=== PATIENT | female | born 1995 | race American Indian/Alaskan Native ===

== ENCOUNTER 2019-01-06 10:34 | Inpatient (IN) | payer MEDICAID ==
[2019-01-06] MEDS ORDERED: BENADRYL IV ONE (10:51)
[2019-01-06] MEDS ORDERED: TORADOL IV ONE (10:51)
[2019-01-06] MEDS ORDERED: SUBLIMAZE IV ONE ×3 (10:51→15:08)
[2019-01-06] MEDS ORDERED: ZOFRAN IV ONE (10:51)
[2019-01-06] MEDS ORDERED: D5NS 0.2% 1,000 ML IV ONE (10:52)
--- NOTE | 2019-01-06 10:58 | Emergency Department Report ---
HPI - General Chief Complaint: Sickle Cell Crisis Time Seen by Provider: 01/06/19 10:47 - HPI HPI: Room 6 The patient is a 23-year-old female presenting with a chief complaint of sickle cell pain crisis. Patient states this morning she developed pain in bilateral knees consistent with her sickle cell pain crises. Patient denies any preceding trauma. Patient gives her pain a score of 10/10 11:17 Patient states she was also feeling short of breath "from the pain" in her knees. Patient denies chest pain but admits to a cough productive of light y ellow sputum for the past 3 days. Will obtain a VQ scan Location: Bilateral knees Duration: Onset this morning Quality: Feels like sickle cell pain crisis Severity:10/10 Modifying factors: [see above] Context: [see above] Mode of transportation: [not driving] ED Past Medical Hx - Past Medical History Previous Medical History?: Yes Hx Sickle Cell Disease: Yes Hx Asthma: Yes Additional medical history: Blood transfuSions - Surgical History Past Surgical History?: Yes Hx Cholecystectomy: Yes Additional Surgical History: Adenoidectomy - Family History Family history: no significant - Social History Smoking Status: Never Smoker Substance Use Type: Marijuana - Medications Home Medications: Home Medications Medication Instructions Recorded Confirmed Last Taken Type Albuterol (Nf) 90 mcg 01/22/15 01/22/15 Unknown History ALBUTEROL Inhaler (OR & NICU) 2 puff IH QID PRN #1 inhalation 08/07/18 Unknown Rx [ProAir HFA Inhaler] ALBUTEROL NEB's [Proventil 0.083% 2.5 mg IH Q4HRT PRN nebu 08/07/18 Unknown Rx NEBS] Benzonatate [Tessalon Perles] 100 mg PO Q8HR #20 capsule 08/07/18 Unknown Rx Ddavp 0.1 mg PO HS #30 08/07/18 Unknown Rx ED Review of Systems ROS: Stated complaint: SICKLE CELL CRISIS Other details as noted in HPI Constitutional: no symptoms reported Eyes: denies: eye pain ENT: denies: throat pain Respiratory: no symptoms reported Cardiovascular: denies: chest pain Endocrine: no symptoms reported Gastrointestinal: denies: abdominal pain Genitourinary: denies: dysuria Musculoskeletal: arthralgia Neurological: denies: headache Physical Exam - Physical Exam Vital Signs: Vital Signs 01/06/19 10:40 Temperature 98.3 F Pulse Rate 64 Respiratory 16 Rate Blood Pressure 118/37 [Right] O2 Sat by Pulse 100 Oximetry Physical Exam: GENERAL: The patient is well-developed well-nourished female holding bilateral knees, tearful appearing to be in moderate discomfort. [] HEENT: Normocephalic. Atraumatic. Extraocular motions are intact. Patient has moist mucous membranes. NECK: Supple. Trachea midline CHEST/LUNGS: There is no respiratory distress noted. HEART/CARDIOVASCULAR: Regular. There is no tachycardia. 2+ bilateral DPs ABDOMEN: There is no abdominal distention. SKIN: There is no rash. There is no edema. There is no diaphoresis. NEURO: The patient is awake, alert, and oriented. The patient is cooperative. The patient has normal speech MUSCULOSKELETAL: There is no calf tenderness. There is no increased warmth of the knees. There is no evidence of acute injury. ED Course Vital Signs 01/06/19 10:40 Temperature 98.3 F Pulse Rate 64 Respiratory 16 Rate Blood Pressure 118/37 [Right] O2 Sat by Pulse 100 Oximetry ED Medical Decision Making - Lab Data Result diagrams: 01/06/19 10:49 01/06/19 10:49 Laboratory Tests 01/06/19 01/06/19 01/06/19 10:49 10:49 10:49 WBC 13.9 H RBC 3.20 L Hgb 11.0 Hct 30.3 MCV 95 MCH 35 H MCHC 36 H RDW 19.9 H Plt Count 422 Lymph % (Auto) 9.3 L [place] % (Auto) 6.7 Eos % (Auto) 0.1 Baso % (Auto) 1.7 Lymph # 1.3 [place] # 0.9 H Eos # 0.0 Baso # 0.2 H Seg Neutrophils % 82.2 H Seg Neutrophils # 11.4 H Percent Retic 13.77 H Sodium 138 Potassium 4.3 Chloride 103.4 Carbon Dioxide 19 L Anion Gap 20 BUN 8 Creatinine 0.2 L Estimated GFR > 60 BUN/Creatinine Ratio 40 Glucose 125 H Calcium 9.5 HCG, Qual Negative Urine Color Urine Turbidity Urine pH Ur Specific [place] Urine Protein Urine Glucose (UA) Urine Ketones Urine Blood Urine Nitrite Urine Bilirubin Urine Urobilinogen Ur Leukocyte Esterase Urine WBC (Auto) Urine RBC (Auto) 01/06/19 12:05 WBC RBC Hgb Hct MCV MCH MCHC RDW Plt Count Lymph % (Auto) [place] % (Auto) Eos % (Auto) Baso % (Auto) Lymph # [place] # Eos # Baso # Seg Neutrophils % Seg Neutrophils # Percent Retic Sodium Potassium Chloride Carbon Dioxide Anion Gap BUN Creatinine Estimated GFR BUN/Creatinine Ratio Glucose Calcium HCG, Qual Urine Color Yellow Urine Turbidity Clear Urine pH 7.0 Ur Specific [place] 1.008 Urine Protein <15 mg/dl Urine Glucose (UA) 50 Urine Ketones Neg Urine Blood Neg Urine Nitrite Neg Urine Bilirubin Neg Urine Urobilinogen 4.0 Ur Leukocyte Esterase Neg Urine WBC (Auto) < 1.0 Urine RBC (Auto) 1.0 - Radiology Data Radiology results: report reviewed (chest x-ray, VQ scan), image reviewed (chest x-ray, VQ scan) interpreted by me: Chest x-ray-left lower lobe infiltrate [facility] [address] [place] [address] XRay Report Signed Patient: MADDY PADGETT MR# : [id number] : 1995 Acct:[id number] Age/Sex: 23 / F ADM Date: 01/06/19 Loc: ED Attending Dr: Ordering Physician: JIN MONTOYA MD Date of Service: 01/06/19 Procedure(s): XR chest 1V ap Accession Number(s): [id number] cc: JIN MONTOYA MD Fluoro Time In Minutes: PROCEDURE: XR CHEST 1V AP HISTORY: shortness of breath FINDINGS: Single frontal view of the chest was acquired and compared to the prior examination of August 07, 2018. In comparison to prior exam dated previously identified left pleural effusion has resolved. There is some linear consolidation at the left lung base which could represent atelectasis, scar, or pneum onia. On the prior exam there is a larger infiltrate in this location. The right lung appears clear. IMPRESSION: Left basilar linear consolidation, atelectasis versus scar versus pneumonia This document is electronically signed by Stevie Delarosa MD., January 06 2019 12:31:00 PM ET Transcribed By: PHANI Dictated By: STEVIE DELAROSA MD Electronically Authenticated By: STEVIE DELAROSA MD Signed Date/Time: 01/06/19 1233 DD/ 1211 TD/TT: 01/06/19 1212 [facility] [address] [place] [address] Nuclear Medicine Report Signed Patient: MADDY PADGETT MR# : [id number] : 1995 Acct:[id number] Age/Sex: 23 / F ADM Date: 01/06/19 Loc: ED Attending Dr: Ordering Physician: JIN MONTOYA MD Date of Service: 01/06/19 Procedure(s): NM lung scan perf/vent Accession Number(s): [id number] cc: JIN MONTOYA MD PROCEDURE: NM LUNG SCAN PERF/VENT TECHNIQUE: 5.4 mCi Tc-99m MAA was injected IV for pulmonary perfusion imaging in multiple projections. 13 mCi Xenon-133 was inhaled for pulmonary ventilation imaging in multiple projections. HISTORY: shortness of breath, history of sickle cell disease COMPARISONS: Chest x-ray January 06, 2019. FINDINGS: Ventilation: Uniform. Perfusion: Unmatched subsegmental perfusion deficits in both upper lobes. IMPRESSION: * Based on the PIOPED study, findings represent low probability for PE. This document is electronically signed by Eriberto Nagel MD., January 06 2019 02:59:50 PM ET Transcribed By: TYM Dictated By: ERIBERTO NAGEL MD Electronically Authenticated By: ERIBERTO NAGEL MD Signed Date/Time: 01/06/19 1501 DD/ 1322 TD/TT: 01/06/19 1324 - Differential Diagnosis sickle cell pain crisis, acute chest syndrome Critical care attestation.: If time is entered above; I have spent that time in minutes in the direct care of this critically ill patient, excluding procedure time. ED Disposition Clinical Impression: Sickle cell pain crisis, Acute chest syndrome Disposition: OP ADMIT IP TO THIS HOSP Is pt being admited?: Yes Does the pt Need Aspirin: Yes Condition: Fair Referrals: PRIMARY CARE, [Referring] - 3-5 Days Time of Disposition: 15:09 (hospitalist paged (Dr Novoa))
[2019-01-06 11:24] LABS: BUN/Creatinine Ratio 40; Blood Urea Nitrogen 8 mg/dL (7-17); Calcium 9.5 mg/dL (8.4-10.2); Hemolysis Index 87
[2019-01-06 11:44] LABS: Basophils # (Auto) 0.2 K/mm3 (0.0-0.1); Basophils % (Auto) 1.7 % (0.0-1.8); Eosinophils % (Auto) 0.1 % (0.0-4.3); Hematocrit 30.3 % (30.3-42.9); Lymphocytes # (Auto) 1.3 K/mm3 (1.2-5.4); Lymphocytes % (Auto) 9.3 % (13.4-35.0); Mean Corpuscular HGB Conc 36 % (30-34); Mean Corpuscular Volume 95 fl (79-97); Monocytes # (Auto) 0.9 K/mm3 (0.0-0.8); Monocytes % (Auto) 6.7 % (0.0-7.3); Platelet Count 422 K/mm3 (140-440); Red Cell Distribution Width 19.9 % (13.2-15.2)
--- NOTE | 2019-01-06 12:33 | XRay Report ---
PROCEDURE: XR CHEST 1V AP HISTORY: shortness of breath FINDINGS: Single frontal view of the chest was acquired and compared to the prior examination of Martha gibbons 2017. In comparison to prior exam dated previously identified left pleural effusion has resolved. There is some linear consolidation at the left lung base which could represent atelectasis, scar, or pneumonia . On the prior exam there is a larger infiltrate in this location. The right lung appears clear. IMPRESSION: Left basilar linear consolidation, atelectasis versus scar versus pneumonia This document is electronically signed by Stevie Delarosa MD., January 06 2019 12:31:00 PM ET
[2019-01-06 12:46] LABS: Bilirubin,Urine NEG (Negative); Blood,Urine NEG (Negative); Color,Urine Yellow (Yellow); Protein,Urine <15 mg/dL mg/dL (Negative); WBC,Urine < 1.0 /HPF (0.0-6.0)
[2019-01-06] MEDS ORDERED: LEVAQUIN 500MG/100ML 500 MG/100 ML BAG IV ONE (13:03)
--- NOTE | 2019-01-06 15:01 | Nuclear Medicine Report ---
PROCEDURE: NM LUNG SCAN PERF/VENT TECHNIQUE: 5.4 mCi Tc-99m MAA was injected IV for pulmonary perfusion imaging in multiple projection s. 13 mCi Xenon-133 was inhaled for pulmonary ventilation imaging in multiple projections. HISTORY: shortness of breath, history of sickle cell disease COMPARISONS: Chest x-ray January 06, 2019. FINDINGS: Ventilation: Uniform. Perfusion: Unmatched subsegmental perfusion deficits in both upper lobes. IMPRESSION: * Based on the PIOPED study, findings represent low probability for PE. This document is electronically signed by Eriberto Ricketts MD., January 06 2019 02:59:50 PM ET
[2019-01-06] MEDS ORDERED: TYLENOL PO PRN (17:10)
[2019-01-06] MEDS ORDERED: SODIUM CHLORIDE FLUSH SYRINGE 10 ML IV PRN (17:10)
[2019-01-06] MEDS ORDERED: ZOFRAN IV PRN (17:10)
[2019-01-06] MEDS ORDERED: PROAIR IH PRN (17:11)
[2019-01-06] MEDS ORDERED: PROVENTIL IH PRN (17:20)
[2019-01-06] MEDS: TORADOL IV PRN (17:35)
[2019-01-06] MEDS: D5NS 1,000 ML IV SCH (17:37)
[2019-01-06] MEDS ORDERED: ALBUTEROL 90 MCG IH SCH (18:00)
[2019-01-06] MEDS ORDERED: DDAVP PO SCH ×2 (22:00)
[2019-01-06] MEDS: TESSALON PERLES PO SCH (22:31)
[2019-01-06] MEDS: PEPCID IV SCH (22:31)
[2019-01-06] MEDS: PERCOCET 5/325 PO PRN (22:32)
[2019-01-06] MEDS: SODIUM CHLORIDE FLUSH SYRINGE 10 ML IV SCH (22:33)
[2019-01-07] MEDS: D5NS 1,000 ML IV SCH ×3 (02:10→18:04)
[2019-01-07] MEDS: TESSALON PERLES PO SCH ×3 (05:59→21:45)
[2019-01-07] MEDS: TORADOL IV PRN ×2 (06:07→18:06)
--- NOTE | 2019-01-07 07:40 | History and Physical Report ---
History of Present Illness Date of examination: 01/06/19 Date of admission: 01/06/19 15:15 Chief complaint: Pain all over and chest discomfort History of present illness: The patient is a 23-year-old female presenting with a chief complaint of sickle cell pain crisis. Patient states this morning she developed pain in bilateral knees consistent with her sickle cell pain crises. Patient denies any preceding trauma. Patient gives her pain a score of 10/10 Patient states she was also feeling short of breath "from the pain" in her knees. Patient denies chest pain but admits to a cough productive of light yellow sputum for the past 3 days. Past Medical History Previous Medical History?: Yes Hx Sickle Cell Disease: Yes Hx Asthma: Yes Additional medical history: Blood transfuSions Surgical History Past Surgical History?: Yes Hx Cholecystectomy: Yes Additional Surgical History: Adenoidectomy Family History Family history: no significant Social History Smoking Status: Never Smoker Substance Use Type: Marijuana - Medications Home Medications: Home Medications Medication Instructions Recorded Confirmed Last Taken Type Albuterol (Nf) 90 mcg 01/22/15 01/22/15 Unknown History ALBUTEROL Inhaler (OR & NICU) 2 puff IH QID PRN #1 inhalation 08/07/18 Unknown Rx [ProAir HFA Inhaler] ALBUTEROL NEB's [Proventil 0.083% 2.5 mg IH Q4HRT PRN nebu 08/07/18 Unknown Rx NEBS] Benzonatate [Tessalon Perles] 100 mg PO Q8HR #20 capsule 08/07/18 Unknown Rx Ddavp 0.1 mg PO HS #30 08/07/18 Unknown Rx Review of Systems ROS: Stated complaint: SICKLE CELL CRISIS Other details as noted in HPI Constitutional: no symptoms reported Eyes: denies: eye pain ENT: denies: throat pain Respiratory: no symptoms reported Cardiovascular: denies: chest pain Endocrine: no symptoms reported Gastrointestinal: denies: abdominal pain Genitourinary: denies: dysuria Musculoskeletal: arthralgia Neurological: denies: headache Medications and Allergies Allergies Allergy/AdvReac Type Severity Reaction Status Date / Time hydromorphone HCl Allergy Swelling Verified 01/23/15 12:07 [From Dilaudid] morphine Allergy Rash Verified 01/23/15 12:07 Home Medications Medication Instructions Recorded Confirmed Last Taken Type Albuterol (Nf) 90 mcg 01/22/15 01/22/15 Unknown History ALBUTEROL Inhaler (OR & NICU) 2 puff IH QID PRN #1 inhalation 08/07/18 Unknown Rx [ProAir HFA Inhaler] ALBUTEROL NEB's [Proventil 0.083% 2.5 mg IH Q4HRT PRN nebu 08/07/18 Unknown Rx NEBS] Benzonatate [Tessalon Perles] 100 mg PO Q8HR #20 capsule 08/07/18 Unknown Rx Ddavp 0.1 mg PO HS #30 08/07/18 Unknown Rx Active Meds: Active Medications Acetaminophen (Tylenol) 650 mg PO Q4H PRN PRN Reason: Pain MILD(1-3)/Fever >100.5/MARI Albuterol (Proventil) 2.5 mg IH Q4HRT PRN PRN Reason: Shortness Of Breath Benzonatate (Tessalon Perles) 100 mg PO Q8HR [facility] Last Admin: 01/07/19 05:59 Dose: 100 mg Documented by: Desmopressin Acetate (Ddavp) 0.1 mg PO [facility] Last Admin: 01/06/19 22:31 Dose: 0.1 mg Documented by: Famotidine (Pepcid) 20 mg IV BID [facility] Last Admin: 01/06/19 22:31 Dose: 20 mg Documented by: Dextrose/Sodium Chloride (D5ns) 1,000 mls @ 125 mls/hr IV DIRECT [facility] Last Admin: 01/07/19 02:10 Dose: 125 mls/hr Documented by: Ketorolac Tromethamine (Toradol) 30 mg IV Q6H PRN PRN Reason: Pain, Moderate (4-6) Stop: 01/11/19 16:52 Last Admin: 01/07/19 06:07 Dose: 30 mg Documented by: Ondansetron HCl (Zofran) 4 mg IV Q8H PRN PRN Reason: Nausea And Vomiting Oxycodone/Acetaminophen (Percocet 5/325) 1 tab PO Q6H PRN PRN Reason: Pain, Moderate (4-6) Last Admin: 01/06/19 22:32 Dose: 1 tab Documented by: Sodium Chloride (Sodium Chloride Flush Syringe 10 Ml) 10 ml IV BID [facility] Last Admin: 01/06/19 22:33 Dose: 10 ml Documented by: Sodium Chloride (Sodium Chloride Flush Syringe 10 Ml) 10 ml IV PRN PRN PRN Reason: LINE FLUSH Exam - Constitutional Vitals: Temp Pulse Resp BP Pulse Ox 98.1 F 82 18 98/43 92 01/07/19 05:08 01/07/19 05:08 01/07/19 06:37 01/07/19 05:08 01/07/19 05:08 General appearance: Present: mild distress, well-nourished - EENT Eyes: Present: PERRL ENT: hearing intact, clear oral mucosa - Neck Neck: Present: supple, normal ROM - Respiratory Respiratory effort: normal Respiratory: bilateral: CTA - Cardiovascular Heart rate: 80 Rhythm: regular Heart Sounds: Present: S1 & S2. Absent: rub, click - Extremities Extremities: no ischemia, pulses intact, pulses symmetrical, No edema Peripheral Pulses: within normal limits - Abdominal General gastrointestinal: Present: soft, non-tender, non-distended, normal bowel sounds Female genitourinary: Present: normal - Rectal Rectal Exam: deferred - Integumentary Integumentary: Present: clear, warm, dry - Musculoskeletal Musculoskeletal: gait normal, strength equal bilaterally - Psychiatric Psychiatric: appropriate mood/affect, intact judgment & insight - Neurologic Neurologic: CNII-XII intact, moves all extremities - Allied Health Allied health notes reviewed: nursing, case management Results - Labs CBC & Chem 7: 01/06/19 10:49 01/06/19 10:49 Labs: Laboratory Last Values WBC 13.9 K/mm3 (4.5-11.0) H 01/06/19 10:49 RBC 3.20 M/mm3 (3.65-5.03) L 01/06/19 10:49 Hgb 11.0 gm/dl (10.1-14.3) 01/06/19 10:49 Hct 30.3 % (30.3-42.9) 01/06/19 10:49 MCV 95 fl (79-97) 01/06/19 10:49 MCH 35 pg (28-32) H 01/06/19 10:49 MCHC 36 % (30-34) H 01/06/19 10:49 RDW 19.9 % (13.2-15.2) H 01/06/19 10:49 Plt Count 422 K/mm3 (140-440) 01/06/19 10:49 Lymph % (Auto) 9.3 % (13.4-35.0) L 01/06/19 10:49 [place] % (Auto) 6.7 % (0.0-7.3) 01/06/19 10:49 Eos % (Auto) 0.1 % (0.0-4.3) 01/06/19 10:49 Baso % (Auto) 1.7 % (0.0-1.8) 01/06/19 10:49 Lymph # 1.3 K/mm3 (1.2-5.4) 01/06/19 10:49 [place] # 0.9 K/mm3 (0.0-0.8) H 01/06/19 10:49 Eos # 0.0 K/mm3 (0.0-0.4) 01/06/19 10:49 Baso # 0.2 K/mm3 (0.0-0.1) H 01/06/19 10:49 Seg Neutrophils % 82.2 % (40.0-70.0) H 01/06/19 10:49 Seg Neutrophils # 11.4 K/mm3 (1.8-7.7) H 01/06/19 10:49 Percent Retic 13.77 % (0.78-2.58) H 01/06/19 10:49 POC ABG pH 7.414 (7.35-7.45) 01/06/19 13:57 POC ABG pCO2 34.6 (35-45) L 01/06/19 13:57 POC ABG pO2 86 (80-105) 01/06/19 13:57 POC ABG HCO3 22.1 (22-26 mml/L) 01/06/19 13:57 POC ABG Total CO2 23 (23-27mmol/L) 01/06/19 13:57 POC ABG O2 Sat 97 01/06/19 13:57 POC ABG Base Excess -2 ((-2) - (+3)mmol/L) 01/06/19 13:57 FiO2 21 % 01/06/19 13:57 Sodium 138 mmol/L (137-145) 01/06/19 10:49 Potassium 4.3 mmol/L (3.6-5.0) 01/06/19 10:49 Chloride 103.4 mmol/L (98-107) 01/06/19 10:49 Carbon Dioxide 19 mmol/L (22-30) L 01/06/19 10:49 Anion Gap 20 mmol/L 01/06/19 10:49 BUN 8 mg/dL (7-17) 01/06/19 10:49 Creatinine 0.2 mg/dL (0.7-1.2) L 01/06/19 10:49 Estimated GFR > 60 ml/min 01/06/19 10:49 BUN/Creatinine Ratio 40 % 01/06/19 10:49 Glucose 125 mg/dL (65-100) H 01/06/19 10:49 Calcium 9.5 mg/dL (8.4-10.2) 01/06/19 10:49 HCG, Qual Negative (Negative) 01/06/19 10:49 Urine Color Yellow (Yellow) 01/06/19 12:05 Urine Turbidity Clear (Clear) 01/06/19 12:05 Urine pH 7.0 (5.0-7.0) 01/06/19 12:05 Ur Specific [place] 1.008 (1.003-1.030) 01/06/19 12:05 Urine Protein <15 mg/dl mg/dL (Negative) 01/06/19 12:05 Urine Glucose (UA) 50 mg/dL (Negative) 01/06/19 12:05 Urine Ketones Neg mg/dL (Negative) 01/06/19 12:05 Urine Blood Neg (Negative) 01/06/19 12:05 Urine Nitrite Neg (Negative) 01/06/19 12:05 Urine Bilirubin Neg (Negative) 01/06/19 12:05 Urine Urobilinogen 4.0 mg/dL (<2.0) 01/06/19 12:05 Ur Leukocyte Esterase Neg (Negative) 01/06/19 12:05 Urine WBC (Auto) < 1.0 /HPF (0.0-6.0) 01/06/19 12:05 Urine RBC (Auto) 1.0 /HPF (0.0-6.0) 01/06/19 12:05 Short CBC 01/06/19 Range/Units 10:49 WBC 13.9 H (4.5-11.0) K/mm3 Hgb 11.0 (10.1-14.3) gm/dl Hct 30.3 (30.3-42.9) % Plt Count 422 (140-440) K/mm3 BMP 01/06/19 10:49 Sodium 138 Potassium 4.3 Chloride 103.4 Carbon Dioxide 19 L BUN 8 Creatinine 0.2 L Glucose 125 H Calcium 9.5 Urine 01/06/19 Range/Units 12:05 Urine Color Yellow (Yellow) Urine pH 7.0 (5.0-7.0) Ur Specific [place] 1.008 (1.003-1.030) Urine Protein <15 mg/dl (Negative) mg/dL Urine Glucose (UA) 50 (Negative) mg/dL - Imaging and Cardiology Chest x-ray: report reviewed Imaging and Cardiology: CXR IMPRESSION: Left basilar linear consolidation, atelectasis versus scar versus pn eum[place] This document is electronically signed by Stevie Delarosa MD., January 06 2019 12:31:00 PM ET Assessment and Plan Advance Directives: Yes (FC) VTE prophylaxis?: Chemical Plan of care discussed with patient/family: Yes - Patient Problems (1) Sickle cell pain crisis Current Visit: Yes Status: Acute Plan to address problem: IV Fluids and IV Dilaudid initiated Check retic count (2) Acute chest syndrome Current Visit: Yes Status: Acute Plan to address problem: sec to SCC No stress test ordered given her age and SCC (3) Pneumonia Current Visit: Yes Status: Acute Qualifiers: Laterality: left Lung location: lower lobe of lung Plan to address problem: Doubtful Radiology reading Initiate IV Levaquin (4) DVT prophylaxis Current Visit: Yes Status: Acute Plan to address problem: On Lovenox and GI prophylaxis
[2019-01-07] MEDS: PEPCID IV SCH ×2 (09:10→21:45)
[2019-01-07] MEDS ORDERED: LEVAQUIN 750MG/150ML 750 MG/150 ML BAG IV SCH (10:00)
--- NOTE | 2019-01-07 13:39 | Progress Note ---
Assessment and Plan Assessment and plan: Sickle cell pain crisis -Pain controlled on current when necessary narcotic -Continue IV fluid Pneumonia(CAP) -On IV antibiotic -Blood cultures pending Metabolic acidosis -On IV fluid, will monitor level Disposition: For possible discharge tomorrow if clinically stable History Interval history: Pt reports that her pain has improved Hospitalist Physical - Constitutional Vitals: Temp Pulse Resp BP Pulse Ox 98.1 F 82 18 98/43 92 01/07/19 05:08 01/07/19 05:08 01/07/19 06:37 01/07/19 05:08 01/07/19 05:08 General appearance: Present: no acute distress, well-nourished - EENT Eyes: Present: PERRL, EOM intact ENT: hearing intact, clear oral mucosa - Neck Neck: Present: supple - Respiratory Respiratory effort: normal Respiratory: bilateral: CTA - Cardiovascular Rhythm: regular Heart Sounds: Present: S1 & S2 - Extremities Extremities: No edema - Abdominal General gastrointestinal: soft, non-tender, non-distended, normal bowel sounds - Integumentary Integumentary: Present: clear, warm, dry - Neurologic Neurologic: CNII-XII intact Results - Labs CBC & Chem 7: 01/06/19 10:49 01/06/19 10:49 Labs: Laboratory Last Values WBC 13.9 K/mm3 (4.5-11.0) H 01/06/19 10:49 RBC 3.20 M/mm3 (3.65-5.03) L 01/06/19 10:49 Hgb 11.0 gm/dl (10.1-14.3) 01/06/19 10:49 Hct 30.3 % (30.3-42.9) 01/06/19 10:49 MCV 95 fl (79-97) 01/06/19 10:49 MCH 35 pg (28-32) H 01/06/19 10:49 MCHC 36 % (30-34) H 01/06/19 10:49 RDW 19.9 % (13.2-15.2) H 01/06/19 10:49 Plt Count 422 K/mm3 (140-440) 01/06/19 10:49 Lymph % (Auto) 9.3 % (13.4-35.0) L 01/06/19 10:49 [place] % (Auto) 6.7 % (0.0-7.3) 01/06/19 10:49 Eos % (Auto) 0.1 % (0.0-4.3) 01/06/19 10:49 Baso % (Auto) 1.7 % (0.0-1.8) 01/06/19 10:49 Lymph # 1.3 K/mm3 (1.2-5.4) 01/06/19 10:49 [place] # 0.9 K/mm3 (0.0-0.8) H 01/06/19 10:49 Eos # 0.0 K/mm3 (0.0-0.4) 01/06/19 10:49 Baso # 0.2 K/mm3 (0.0-0.1) H 01/06/19 10:49 Seg Neutrophils % 82.2 % (40.0-70.0) H 01/06/19 10:49 Seg Neutrophils # 11.4 K/mm3 (1.8-7.7) H 01/06/19 10:49 Percent Retic 13.77 % (0.78-2.58) H 01/06/19 10:49 POC ABG pH 7.414 (7.35-7.45) 01/06/19 13:57 POC ABG pCO2 34.6 (35-45) L 01/06/19 13:57 POC ABG pO2 86 (80-105) 01/06/19 13:57 POC ABG HCO3 22.1 (22-26 mml/L) 01/06/19 13:57 POC ABG Total CO2 23 (23-27mmol/L) 01/06/19 13:57 POC ABG O2 Sat 97 01/06/19 13:57 POC ABG Base Excess -2 ((-2) - (+3)mmol/L) 01/06/19 13:57 FiO2 21 % 01/06/19 13:57 Sodium 138 mmol/L (137-145) 01/06/19 10:49 Potassium 4.3 mmol/L (3.6-5.0) 01/06/19 10:49 Chloride 103.4 mmol/L (98-107) 01/06/19 10:49 Carbon Dioxide 19 mmol/L (22-30) L 01/06/19 10:49 Anion Gap 20 mmol/L 01/06/19 10:49 BUN 8 mg/dL (7-17) 01/06/19 10:49 Creatinine 0.2 mg/dL (0.7-1.2) L 01/06/19 10:49 Estimated GFR > 60 ml/min 01/06/19 10:49 BUN/Creatinine Ratio 40 % 01/06/19 10:49 Glucose 125 mg/dL (65-100) H 01/06/19 10:49 Calcium 9.5 mg/dL (8.4-10.2) 01/06/19 10:49 HCG, Qual Negative (Negative) 01/06/19 10:49 Urine Color Yellow (Yellow) 01/06/19 12:05 Urine Turbidity Clear (Clear) 01/06/19 12:05 Urine pH 7.0 (5.0-7.0) 01/06/19 12:05 Ur Specific [place] 1.008 (1.003-1.030) 01/06/19 12:05 Urine Protein <15 mg/dl mg/dL (Negative) 01/06/19 12:05 Urine Glucose (UA) 50 mg/dL (Negative) 01/06/19 12:05 Urine Ketones Neg mg/dL (Negative) 01/06/19 12:05 Urine Blood Neg (Negative) 01/06/19 12:05 Urine Nitrite Neg (Negative) 01/06/19 12:05 Urine Bilirubin Neg (Negative) 01/06/19 12:05 Urine Urobilinogen 4.0 mg/dL (<2.0) 01/06/19 12:05 Ur Leukocyte Esterase Neg (Negative) 01/06/19 12:05 Urine WBC (Auto) < 1.0 /HPF (0.0-6.0) 01/06/19 12:05 Urine RBC (Auto) 1.0 /HPF (0.0-6.0) 01/06/19 12:05 Active Medications - Current Medications Current Medications: Generic Name Dose Route Start Last Admin Trade Name Freq PRN Reason Stop Dose Admin Acetaminophen 650 mg 01/06/19 17:10 Tylenol PO Q4H PRN Pain MILD(1-3)/Fever >100.5/MARI Albuterol 2.5 mg 01/06/19 17:20 Proventil IH Q4HRT PRN Shortness Of Breath Benzonatate 100 mg 01/06/19 22:00 01/07/19 05:59 Tessalon Perles PO 100 mg Q8HR YASSINE Administration Desmopressin Acetate 0.1 mg 01/06/19 22:00 01/06/19 22:31 Ddavp PO 0.1 mg HS YASSINE Administration Famotidine 20 mg 01/06/19 22:00 01/07/19 09:10 Pepcid IV 20 mg BID YASSINE Administration Dextrose/Sodium Chloride 1,000 mls @ 125 mls/hr 01/06/19 18:00 01/07/19 09:10 D5ns IV 125 mls/hr DIRECT YASSINE Administration Levofloxacin/Dextrose 750 mg in 150 mls @ 100 mls/hr 01/07/19 10:00 01/07/19 09:10 Levaquin 750mg/150ml IV 100 mls/hr Q24HR YASSINE Administration Protocol Ketorolac Tromethamine 30 mg 01/06/19 16:53 01/07/19 06:07 Toradol IV 01/11/19 16:52 30 mg Q6H PRN Administration Pain, Moderate (4-6) Ondansetron HCl 4 mg 01/06/19 17:10 Zofran IV Q8H PRN Nausea And Vomiting Oxycodone/Acetaminophen 1 tab 01/06/19 17:10 01/06/19 22:32 Percocet 5/325 PO 1 tab Q6H PRN Administration Pain, Moderate (4-6) Sodium Chloride 10 ml 01/06/19 22:00 01/06/19 22:33 Sodium Chloride Flush Syringe 10 Ml IV 10 ml BID YASSINE Administration Sodium Chloride 10 ml 01/06/19 17:10 Sodium Chloride Flush Syringe 10 Ml IV PRN PRN LINE FLUSH
[2019-01-07] MEDS: SODIUM CHLORIDE FLUSH SYRINGE 10 ML IV SCH ×2 (13:50→21:45)
[2019-01-07] MEDS: PERCOCET 5/325 PO PRN (21:46)
[2019-01-08] MEDS: TESSALON PERLES PO SCH (05:27)
[2019-01-08 05:42] VITALS: BP 105/43
[2019-01-08 08:00] LABS: BUN/Creatinine Ratio 30; Blood Urea Nitrogen 6 mg/dL (7-17); Calcium 8.6 mg/dL (8.4-10.2); Hemolysis Index 35
[2019-01-08 10:39] LABS: Basophils % (Auto) 0.5 % (0.0-1.8); Eosinophils # (Auto) 0.3 K/mm3 (0.0-0.4); Eosinophils % (Auto) 3.7 % (0.0-4.3); Hemoglobin 7.3 gm/dl (10.1-14.3); Lymphocytes # (Auto) 2.2 K/mm3 (1.2-5.4); Lymphocytes % (Auto) 26.1 % (13.4-35.0); Mean Corpuscular HGB Conc 37 % (30-34); Mean Corpuscular Volume 95 fl (79-97); Monocytes # (Auto) 1.2 K/mm3 (0.0-0.8); Monocytes % (Auto) 13.9 % (0.0-7.3); Platelet Count 411 K/mm3 (140-440); Red Blood Count 2.06 M/mm3 (3.65-5.03)
[2019-01-08] MEDS ORDERED: LEVAQUIN PO ONE (11:00)
[2019-01-08] MEDS ORDERED: PEPCID PO SCH (11:00)
[2019-01-08 11:48] LABS: Hematocrit 19.6 % (30.3-42.9); Red Cell Distribution Width 20.9 % (13.2-15.2)
[2019-01-08 13:20] LABS: Hematocrit 23.2 % (30.3-42.9); Hemoglobin 8.7 gm/dl (10.1-14.3)
--- NOTE | 2019-01-08 17:33 | Discharge Summary ---
Providers - Providers Date of Admission: 01/06/19 15:15 Date of discharge: 01/08/19 Attending physician: BETTY DURAN Primary care physician: RADHA GARCIA Hospitalization Reason for admission: Sickle cell pain crisis, PNA Condition: Fair Pertinent studies: Chest x-ray Procedures: None Hospital course: Final discharge diagnosis: -Sickle cell pain crisis -Pneumonia(CAP) -Metabolic acidosis, resolved -Acute on chronic anemia Hospital course: Patient was admitted and placed on when necessary narcotics in addition to IV fluid and IV antibiotic after blood cultures were obtained. Thereafter, her hemoglobin trended down but remained stable. Subsequently, she improved clinically and was then deemed stable for discharge with clinic follow-up. Of note, the blood cultures came back negative for any growth. Disposition: DC-01 TO HOME OR SELFCARE Time spent for discharge: 32 minutes Core Measure Documentation - Palliative Care Palliative Care/ Comfort Measures: Not Applicable - Core Measures Any of the following diagnoses?: none Exam - Constitutional Vitals: Temp Pulse Resp BP Pulse Ox 98.0 F 75 16 105/43 93 01/08/19 05:29 01/08/19 05:29 01/08/19 05:29 01/08/19 05:29 01/08/19 05:29 General appearance: Present: no acute distress, well-nourished - EENT Eyes: Present: PERRL, EOM intact ENT: hearing intact, clear oral mucosa - Neck Neck: Present: supple, normal ROM - Respiratory Respiratory effort: normal Respiratory: bilateral: CTA - Cardiovascular Rhythm: regular Heart Sounds: Present: S1 & S2. Absent: rub, click - Extremities Extremities: pulses symmetrical, No edema Peripheral Pulses: within normal limits - Abdominal General gastrointestinal: Present: soft, non-tender, non-distended, normal bowel sounds Female genitourinary: Present: deferred - Integumentary Integumentary: Present: clear, warm, dry - Musculoskeletal Musculoskeletal: gait normal, strength equal bilaterally - Psychiatric Psychiatric: appropriate mood/affect, intact judgment & insight - Neurologic Neurologic: CNII-XII intact, moves all extremities Plan Follow up with: PRIMARY CARE, [Referring] - 3-5 Days Prescriptions: levoFLOXacin [Levaquin TAB] 750 mg PO QDAY #7 tablet oxyCODONE /ACETAMINOPHEN [Percocet 5/325 mg] 1 tab PO Q6H PRN #15 tablet PRN Reason: Pain , Severe (7-10)
== END 2019-01-08 15:00 | disposition home or self-care (01) | DRG 811 ==
LOC: ED 10:34 → 3A 15:15
PROVIDERS: ADMIT Internal Medicine; ATTEND Internal Medicine
PROC: 4A033R1 Measurement of Arterial Saturation, Peripheral, Percutaneous Approach (ICD-10-PCS; principal; 2019-01-06)
DX: D57.01 Hb-SS disease with acute chest syndrome (principal); J18.9 Pneumonia, unspecified organism; E87.2 Acidosis; J45.909 Unspecified asthma, uncomplicated; F12.90 Cannabis use, unspecified, uncomplicated; Z79.51 Long term (current) use of inhaled steroids; Z90.49 Acquired absence of other specified parts of digestive tract; Z88.5 Allergy status to narcotic agent
CPT/HCPCS: 36415; 71045; 78582; 80048; 81001; 82803; 84703; 85014; 85018; 85025; 85045; 87040; G0378; A9540; A9558; J1200; J1885; J1956; J2405; J3010; J7042

== ENCOUNTER 2019-01-13 16:46 | Emergency (ER) | payer MEDICAID ==
[2019-01-13] MEDS ORDERED: ZOFRAN IV ONE (17:12)
[2019-01-13] MEDS ORDERED: TORADOL IV ONE (17:12)
[2019-01-13] MEDS ORDERED: NACL 0.9% 1000 ML 1,000 ML IV ONE ×2 (17:12→20:17)
--- NOTE | 2019-01-13 17:16 | Emergency Department Report ---
Blank Doc - Documentation Documentation: 23 y/o female seen in ED 1 week ago here and admitted. Was discharged and went to [facility] yesterday prescribed oxycodone and having continued pain body and pain worsen to ribs and chest. No fever or chills. no N/V. No hemoptysis. Pain with breathing. Plan MAIN Side Labs pain control
[2019-01-13 17:40] LABS: Basophils # (Auto) 0.1 K/mm3 (0.0-0.1); Basophils % (Auto) 0.6 % (0.0-1.8); Eosinophils # (Auto) 0.1 K/mm3 (0.0-0.4); Eosinophils % (Auto) 0.7 % (0.0-4.3); Hematocrit 20.3 % (30.3-42.9); Hemoglobin 7.4 gm/dl (10.1-14.3); Lymphocytes # (Auto) 1.9 K/mm3 (1.2-5.4); Mean Corpuscular HGB Conc 36 % (30-34); Mean Corpuscular Volume 99 fl (79-97); Monocytes # (Auto) 1.1 K/mm3 (0.0-0.8); Monocytes % (Auto) 8.4 % (0.0-7.3); Platelet Count 566 K/mm3 (140-440); Red Blood Count 2.06 M/mm3 (3.65-5.03)
[2019-01-13 17:42] LABS: Red Cell Distribution Width 22.5 % (13.2-15.2)
[2019-01-13 18:09] LABS: Alanine Aminotransferase 41 units/L (7-56); Albumin 4.2 g/dL (3.9-5); BUN/Creatinine Ratio 30; Blood Urea Nitrogen 6 mg/dL (7-17); Calcium 9.5 mg/dL (8.4-10.2); Hemolysis Index 12
[2019-01-13] MEDS ORDERED: PERCOCET 5/325 PO ONE (19:48)
[2019-01-13] MEDS ORDERED: TORADOL ONE (20:33)
[2019-01-13] MEDS ORDERED: ZOFRAN ONE (20:33)
[2019-01-13 21:25] LABS: Bilirubin,Urine NEG (Negative); Blood,Urine NEG (Negative); Color,Urine Amber (Yellow); Mucus,Urine FEW /HPF; Protein,Urine <15 mg/dL mg/dL (Negative); RBC,Urine < 1.0 /HPF (0.0-6.0)
[2019-01-13 21:43] LABS: HCG Qualitative,Urine Negative (Negative)
--- NOTE | 2019-01-13 22:33 | Cat Scan Report ---
PROCEDURE: CT ANGIO CHEST TECHNIQUE: Computerized tomographic angiography of the chest was performed after the IV injection of iodinated nonionic contrast including image processing. The image data was postprocessed using 2-di mensional multiplanar reformatted (MPR) and 3-dimensional (MIP and/or volume rendered) techniques. Au tomated exposure control, adjustment of mA and/or kV according to patient size, or iterative reconstr uction dose optimization techniques were utilized. CT DOSE LENGTH PRODUCT: 338.7 mGycm HISTORY: pleuritic cp, hx of SSD and recent hospitalization COMPARISONS: 08/02/2018 . FINDINGS: Heart and pericardium: Normal. Thoracic aorta: There is no thoracic aortic aneurysm or dissection.. Pulmonary vasculature: There is no pulmonary embolism.. Lymph nodes: No enlarged thoracic lymph nodes. Lungs: There are bilateral lower lobe infiltrates.. Pleural space: There is a small right pleural effusion. There is no pneumothorax.. Musculoskeletal structures: No significant abnormality. Upper abdominal structures: No significant abnormality. IMPRESSION: There is no pulmonary embolism. There is no thoracic aortic aneurysm or dissection.. There are bilateral lower lobe infiltrates.. There is a small right pleural effusion. There is no pneumothorax.. This document is electronically signed by Haris Zuniga MD., Jan 13 2019 10:30:42 PM ET
--- NOTE | 2019-01-13 23:45 | Ultrasound Report ---
PROCEDURE: US GALLBLADDER TECHNIQUE: Real-time sonography in multiple planes of the gallbladder fossa and CBD with imaging of the adjacent liver, pancreas, and right kidney was performed with image documentation. CPT 42722 HISTORY: Abdominal pain COMPARISONS: None . FINDINGS: Liver: Normal size and echotexture with no evidence of cystic or solid mass lesion. Gallbladder: Not identified.. Intrahepatic bile ducts: Normal . Extrahepatic bile ducts: Normal. Pancreas: Normal as visualized with suboptimal depiction of the pancreatic tail. Right kidney: Normal echotexture. No focal renal mass, calculus, or hydronephrosis. Other: No free fluid. IMPRESSION: The gallbladder is not identified. There is no biliary ductal dilatation. . This document is electronically signed by Haris Zuniga MD., Jan 13 2019 11:42:48 PM ET
[2019-01-14] MEDS ORDERED: PERCOCET 5/325 PO ONE (00:42)
--- NOTE | 2019-01-14 00:45 | Emergency Department Report ---
ED General Adult HPI - General Chief complaint: Sickle Cell Crisis Stated complaint: SICKLE CELL CRISIS Time Seen by Provider: 01/13/19 17:11 Source: patient Mode of arrival: Ambulatory Limitations: No Limitations - History of Present Illness Initial comments: Patient is a 23-year-old female who is presenting with sickle cell crisis. Patient states she has pain to the bilateral ribs and center chest as well as her low back. Patient states pain is 1010 in severity. Patient just released from the hospital several days ago for similar symptoms. Patient is on Levaquin secondary to possible infection seen in the lungs during the last admission. Patient states pain is 10 out of 10 and is aching and throbbing. Patient denies any nausea vomiting diarrhea fevers or chills at this time. Patient states the rib pain is right greater than left. Patient states there is a couple pleuritic component to her pain. Severity scale (0 -10): 3 - Related Data Home Medications Medication Instructions Recorded Confirmed Last Taken Albuterol (Nf) 90 mcg 01/22/15 01/22/15 Unknown Previous Rx's Medication Instructions Recorded Last Taken Type ALBUTEROL Inhaler (OR & NICU) 2 puff IH QID PRN #1 inhalation 08/07/18 Unknown Rx [ProAir HFA Inhaler] ALBUTEROL NEB's [Proventil 0.083% 2.5 mg IH Q4HRT PRN nebu 08/07/18 Unknown Rx NEBS] Benzonatate [Tessalon Perles] 100 mg PO Q8HR #20 capsule 08/07/18 Unknown Rx levoFLOXacin [Levaquin TAB] 750 mg PO QDAY #7 tablet 01/08/19 Unknown Rx oxyCODONE /ACETAMINOPHEN [Percocet 1 tab PO Q6H PRN #15 tablet 01/08/19 Unknown Rx 5/325 mg] Ketorolac [Toradol] 10 mg PO Q6H PRN #12 tablet 01/14/19 Unknown Rx Oxycodone HCl/Acetaminophen 1 each PO Q6HR PRN #14 tablet 01/14/19 Unknown Rx [Percocet 7.5/325 mg] traMADol [Ultram] 50 mg PO Q6HR PRN #12 tablet 01/14/19 Unknown Rx Allergies Allergy/AdvReac Type Severity Reaction Status Date / Time hydromorphone HCl Allergy Shortness Verified 01/13/19 16:52 [From Dilaudid] of Breath morphine Allergy Shortness Verified 01/13/19 16:52 of Breath ED Review of Systems ROS: Stated complaint: SICKLE CELL CRISIS Other details as noted in HPI Comment: All other systems reviewed and negative ED Past Medical Hx - Past Medical History Hx Congestive Heart Failure: No Hx Diabetes: No Hx Sickle Cell Disease: Yes Hx Asthma: Yes Hx COPD: No Additional medical history: Blood transfuSions - Surgical History Hx Cholecystectomy: Yes Additional Surgical History: Adenoidectomy - Social History Smoking Status: Never Smoker Substance Use Type: None - Medications Home Medications: Home Medications Medication Instructions Recorded Confirmed Last Taken Type Albuterol (Nf) 90 mcg 01/22/15 01/22/15 Unknown History ALBUTEROL Inhaler (OR & NICU) 2 puff IH QID PRN #1 inhalation 08/07/18 01/07/19 Unknown Rx [ProAir HFA Inhaler] ALBUTEROL NEB's [Proventil 0.083% 2.5 mg IH Q4HRT PRN nebu 08/07/18 01/07/19 Unknown Rx NEBS] Benzonatate [Tessalon Perles] 100 mg PO Q8HR #20 capsule 08/07/18 01/07/19 Unknown Rx levoFLOXacin [Levaquin TAB] 750 mg PO QDAY #7 tablet 01/08/19 Unknown Rx oxyCODONE /ACETAMINOPHEN [Percocet 1 tab PO Q6H PRN #15 tablet 01/08/19 Unknown Rx 5/325 mg] Ketorolac [Toradol] 10 mg PO Q6H PRN #12 tablet 01/14/19 Unknown Rx Oxycodone HCl/Acetaminophen 1 each PO Q6HR PRN #14 tablet 01/14/19 Unknown Rx [Percocet 7.5/325 mg] traMADol [Ultram] 50 mg PO Q6HR PRN #12 tablet 01/14/19 Unknown Rx ED Physical Exam - General Limitations: No Limitations General appearance: alert, in no apparent distress - Head Head exam: Present: atraumatic, normocephalic - Eye Eye exam: Present: normal appearance, PERRL, EOMI, scleral icterus - ENT ENT exam: Present: mucous membranes moist - Neck Neck exam: Present: normal inspection, full ROM. Absent: tenderness, meningismus - Respiratory Respiratory exam: Present: normal lung sounds bilaterally, chest wall tenderness. Absent: respiratory distress, wheezes, rales, rhonchi - Cardiovascular Cardiovascular Exam: Present: regular rate, normal rhythm, normal heart sounds. Absent: systolic murmur, diastolic murmur, rubs, gallop - GI/Abdominal GI/Abdominal exam: Present: soft, normal bowel sounds. Absent: distended, tenderness, guarding, rebound, rigid - Extremities Exam Extremities exam: Present: normal inspection - Back Exam Back exam: Present: normal inspection - Neurological Exam Neurological exam: Present: alert, oriented X3 - Psychiatric Psychiatric exam: Present: normal affect, normal mood - Skin Skin exam: Present: warm, dry, intact, normal color. Absent: rash ED Course Vital Signs 01/13/19 01/13/19 01/13/19 17:13 19:50 20:23 Temperature 99.1 F 99.4 F Pulse Rate 105 H 95 H Respiratory 16 21 20 Rate Blood Pressure Blood Pressure 103/50 119/59 [Left] O2 Sat by Pulse 96 97 Oximetry 01/13/19 01/13/19 01/13/19 20:38 21:00 21:08 Temperature Pulse Rate 98 H Respiratory 20 29 H 15 Rate Blood Pressure 120/56 Blood Pressure [Left] O2 Sat by Pulse 92 Oximetry 01/13/19 01/13/19 22:11 23:00 Temperature Pulse Rate 85 71 Respiratory 17 16 Rate Blood Pressure 119/59 100/47 Blood Pressure [Left] O2 Sat by Pulse 100 100 Oximetry ED Medical Decision Making - Lab Data Result diagrams: 01/13/19 17:21 01/13/19 17:21 Lab Results 01/13/19 01/13/19 01/13/19 Range/Units 17:21 17:21 21:01 WBC 13.7 H (4.5-11.0) K/mm3 RBC 2.06 L (3.65-5.03) M/mm3 Hgb 7.4 L (10.1-14.3) gm/dl Hct 20.3 L (30.3-42.9) % MCV 99 H (79-97) fl MCH 36 H (28-32) pg MCHC 36 H (30-34) % RDW 22.5 H (13.2-15.2) % Plt Count 566 H (140-440) K/mm3 Lymph % (Auto) 14.0 (13.4-35.0) % [place] % (Auto) 8.4 H (0.0-7.3) % Eos % (Auto) 0.7 (0.0-4.3) % Baso % (Auto) 0.6 (0.0-1.8) % Lymph # 1.9 (1.2-5.4) K/mm3 [place] # 1.1 H (0.0-0.8) K/mm3 Eos # 0.1 (0.0-0.4) K/mm3 Baso # 0.1 (0.0-0.1) K/mm3 Seg Neutrophils % 76.3 H (40.0-70.0) % Seg Neutrophils # 10.5 H (1.8-7.7) K/mm3 Percent Retic 21.52 H (0.78-2.58) % Sodium 139 (137-145) mmol/L Potassium 3.6 (3.6-5.0) mmol/L Chloride 100.2 (98-107) mmol/L Carbon Dioxide 24 (22-30) mmol/L Anion Gap 18 mmol/L BUN 6 L (7-17) mg/dL Creatinine 0.2 L (0.7-1.2) mg/dL Estimated GFR > 60 ml/min BUN/Creatinine Ratio 30 % Glucose 108 H (65-100) mg/dL Calcium 9.5 (8.4-10.2) mg/dL Total Bilirubin 6.00 H (0.1-1.2) mg/dL AST 35 (5-40) units/L ALT 41 (7-56) units/L Alkaline Phosphatase 159 H (35-129) units/L Total Protein 7.2 (6.3-8.2) g/dL Albumin 4.2 (3.9-5) g/dL Albumin/Globulin Ratio 1.4 % Urine Color [place] (Yellow) Urine Turbidity Clear (Clear) Urine pH 6.0 (5.0-7.0) Ur Specific [place] 1.012 (1.003-1.030) Urine Protein <15 mg/dl (Negative) mg/dL Urine Glucose (UA) Neg (Negative) mg/dL Urine Ketones Neg (Negative) mg/dL Urine Blood Neg (Negative) Urine Nitrite Neg (Negative) Urine Bilirubin Neg (Negative) Urine Urobilinogen 4.0 (<2.0) mg/dL Ur Leukocyte Esterase Neg (Negative) Urine WBC (Auto) 1.0 (0.0-6.0) /HPF Urine RBC (Auto) < 1.0 (0.0-6.0) /HPF Urine Mucus Few /HPF Urine HCG, Qual Negative (Negative) - EKG Data -: EKG Interpreted by [facility] - Radiology Data Because of the patient's pleuritic pain recent hospitalization and blood disorders CTA was ordered to rule out PE. This was negative for pulmonary embolus. Ultrasound performed which showed the patient did not have a gallbladder. The biliary ducts were within normal limits. - Medical Decision Making Patient is a 23-year-old female with SS sickle cell disease. Patient is having bilateral lower rib pain and lower back pain. Patient has mild cough is nonproductive as well as a pleuritic chest discomfort. Patient has CTA done to rule out PE because of her recent hospitalization number disorder. This is negative. When I review the patient's R studies I do see that she has a relatively new jaundice. July 2018 the patient's bilirubin was within normal limits. Is now 6. Patient initially stated that she has a history of some gallstones but states that she still had her gallbladder. Ultrasound confirmed that the patient actually had her gallbladder removed. When asked about this patient was under impression that they just removed a gallstones and confirms that she did have surgery. Did explain to the patient and her mother the typical treatment for gallstone removal. Patient will be referred to gastroenterology regarding the jaundice. Patient's pain has improved with the mesentery given here today. Patient is already on some Percocet at home and Ultram and Toradol will be added. Critical care attestation.: If time is entered above; I have spent that time in minutes in the direct care o f this critically ill patient, excluding procedure time. ED Disposition Clinical Impression: Hyperbilirubinemia, Pleurisy Sickle cell anemia Qualifiers: Sickle-cell associated disorders: with acute chest syndrome Qualified Code(s): D57.01 - Hb-SS disease with acute chest syndrome Disposition: -01 TO HOME OR SELFCARE Is pt being admited?: No Does the pt Need Aspirin: No Condition: Stable Instructions: Sickle Cell Crisis (ED) Referrals: [facility] [Provider Group] - 3-5 Days Time of Disposition: 00:51
[2019-01-14] MEDS ORDERED: PERCOCET 5/325 ONE (00:46)
[2019-01-14 01:24] VITALS: BP 106/49
== END 2019-01-14 01:04 | disposition home or self-care (01) ==
LOC: ED 16:46
DX: D57.01 Hb-SS disease with acute chest syndrome (principal); E80.6 Other disorders of bilirubin metabolism; J45.909 Unspecified asthma, uncomplicated; Z90.49 Acquired absence of other specified parts of digestive tract; Z88.5 Allergy status to narcotic agent
CPT/HCPCS: 36415; 71275; 76705; 80053; 81001; 81025; 85025; 85045; 96374; 96375; 99284; J1885; J2405; J7030; Q9967

== ENCOUNTER 2019-02-08 08:30 | Inpatient (IN) | payer MEDICAID ==
[2019-02-08] MEDS ORDERED: TORADOL IV ONE (08:39)
[2019-02-08] MEDS ORDERED: SUBLIMAZE IV ONE (08:39)
[2019-02-08] MEDS ORDERED: BENADRYL IV ONE (08:39)
--- NOTE | 2019-02-08 08:40 | Emergency Department Report ---
ED General Adult HPI - General Chief complaint: Sickle Cell Crisis Stated complaint: SICKLE CELL CRISIS Time Seen by Provider: 02/08/19 08:38 Source: family, EMS Mode of arrival: Stretcher Limitations: No Limitations - History of Present Illness Initial comments: Patient is a 23-year-old female that presents emergency room via EMS for sickle cell crisis. Patient states her last crisis was a month ago. Patient states he is having chest pain, leg pain and back pain. Patient states her pain is 10 out of 10. States her pain is worse with walking and movement and palpation. Patient states her pain is better with rest. Patient states she is unable to take morphine and Dilaudid due to allergies. Patient states they gave her fentanyl and Benadryl and Toradol with her crisis. Patient states she is currently on her period -: Sudden - Related Data Home Medications Medication Instructions Recorded Confirmed Last Taken Albuterol (Nf) 90 mcg 01/22/15 01/22/15 Unknown Previous Rx's Medication Instructions Recorded Last Taken Type ALBUTEROL Inhaler (OR & NICU) 2 puff IH QID PRN #1 inhalation 08/07/18 Unknown Rx [ProAir HFA Inhaler] ALBUTEROL NEB's [Proventil 0.083% 2.5 mg IH Q4HRT PRN nebu 08/07/18 Unknown Rx NEBS] Benzonatate [Tessalon Perles] 100 mg PO Q8HR #20 capsule 08/07/18 Unknown Rx levoFLOXacin [Levaquin TAB] 750 mg PO QDAY #7 tablet 01/08/19 Unknown Rx oxyCODONE /ACETAMINOPHEN [Percocet 1 tab PO Q6H PRN #15 tablet 01/08/19 Unknown Rx 5/325 mg] Ketorolac [Toradol] 10 mg PO Q6H PRN #12 tablet 01/14/19 Unknown Rx Oxycodone HCl/Acetaminophen 1 each PO Q6HR PRN #14 tablet 01/14/19 Unknown Rx [Percocet 7.5/325 mg] traMADol [Ultram] 50 mg PO Q6HR PRN #12 tablet 01/14/19 Unknown Rx Allergies Allergy/AdvReac Type Severity Reaction Status Date / Time hydromorphone HCl Allergy Shortness Verified 01/13/19 16:52 [From Dilaudid] of Breath morphine Allergy Shortness Verified 01/13/19 16:52 of Breath ED Review of Systems ROS: Stated complaint: SICKLE CELL CRISIS Other details as noted in HPI Constitutional: denies: chills, fever Eyes: denies: eye pain, eye discharge, vision change ENT: denies: ear pain, throat pain Respiratory: denies: cough, shortness of breath, wheezing Cardiovascular: chest pain. denies: palpitations Endocrine: no symptoms reported Gastrointestinal: denies: abdominal pain, nausea, diarrhea Genitourinary: denies: urgency, dysuria, discharge Musculoskeletal: back pain, arthralgia, myalgia. denies: joint swelling Skin: denies: rash, lesions Neurological: denies: headache, weakness, paresthesias Psychiatric: denies: anxiety, depression Hematological/Lymphatic: denies: easy bleeding, easy bruising ED Past Medical Hx - Past Medical History Previous Medical History?: Yes Hx Congestive Heart Failure: No Hx Diabetes: No Hx Sickle Cell Disease: Yes (Type SS) Hx Asthma: Yes Hx COPD: No Additional medical history: Blood transfusions - Surgical History Past Surgical History?: Yes Hx Cholecystectomy: Yes Additional Surgical History: Adenoidectomy - Family History Family history: no significant - Social History Smoking Status: Never Smoker Substance Use Type: None - Medications Home Medications: Home Medications Medication Instructions Recorded Confirmed Last Taken Type Albuterol (Nf) 90 mcg 01/22/15 01/22/15 Unknown History ALBUTEROL Inhaler (OR & NICU) 2 puff IH QID PRN #1 inhalation 08/07/18 01/07/19 Unknown Rx [ProAir HFA Inhaler] ALBUTEROL NEB's [Proventil 0.083% 2.5 mg IH Q4HRT PRN nebu 08/07/18 01/07/19 Unknown Rx NEBS] Benzonatate [Tessalon Perles] 100 mg PO Q8HR #20 capsule 08/07/18 01/07/19 Unknown Rx levoFLOXacin [Levaquin TAB] 750 mg PO QDAY #7 tablet 01/08/19 Unknown Rx oxyCODONE /ACETAMINOPHEN [Percocet 1 tab PO Q6H PRN #15 tablet 01/08/19 Unknown Rx 5/325 mg] Ketorolac [Toradol] 10 mg PO Q6H PRN #12 tablet 01/14/19 Unknown Rx Oxycodone HCl/Acetaminophen 1 each PO Q6HR PRN #14 tablet 01/14/19 Unknown Rx [Percocet 7.5/325 mg] traMADol [Ultram] 50 mg PO Q6HR PRN #12 tablet 01/14/19 Unknown Rx ED Physical Exam - General Limitations: No Limitations General appearance: alert, in no apparent distress - Head Head exam: Present: atraumatic, normocephalic - Eye Eye exam: Present: normal appearance - ENT ENT exam: Present: mucous membranes moist - Neck Neck exam: Present: normal inspection - Respiratory Respiratory exam: Present: normal lung sounds bilaterally, chest wall tenderness. Absent: respiratory distress, wheezes, rales - Cardiovascular Cardiovascular Exam: Present: regular rate, normal rhythm. Absent: systolic murmur, diastolic murmur, rubs, gallop - GI/Abdominal GI/Abdominal exam: Present: soft, normal bowel sounds - Extremities Exam Extremities exam: Present: normal inspection, tenderness (gustavo lower ext. ) - Back Exam Back exam: Present: normal inspection, full ROM, tenderness - Neurological Exam Neurological exam: Present: alert, oriented X3 - Psychiatric Psychiatric exam: Present: normal affect, normal mood - Skin Skin exam: Present: warm, dry, intact, normal color. Absent: rash ED Course Vital Signs 02/08/19 02/08/19 02/08/19 08:38 08:46 09:00 Temperature 98.4 F Pulse Rate 76 74 Respiratory 20 21 Rate Blood Pressure 140/78 134/92 O2 Sat by Pulse 100 100 100 Oximetry 02/08/19 02/08/19 09:30 10:01 Temperature Pulse Rate 85 81 Respiratory 11 L 12 Rate Blood Pressure 129/76 129/76 O2 Sat by Pulse 94 97 Oximetry - Reevaluation(s) Reevaluation #1: Patient states that her pain is better. Patient states her pain now is a 4 out of 10. Discussed all results with patient. Patient will be admitted to the hospitalist service. Patient agrees to plan of care. 02/08/19 09:37 - Consultations Consultation #1: Hospitalist consulted for admission. Hospitalist to admit patient. Hospitalist to assume care patient. Bridge Orders placed 02/08/19 09:38 ED Medical Decision Making - Lab Data Result diagrams: 02/08/19 Unknown 02/08/19 Unknown - EKG Data -: EKG Interpreted by Me EKG shows normal: sinus rhythm, axis, intervals, QRS complexes, ST-T waves Rate: normal - Radiology Data Radiology results: image reviewed interpreted by me: Negative chest x-ray AP CHEST: HISTORY: chest pain AP view of the chest demonstrates a normal mediastinal and cardiac contour with clear lungs and normal bony and soft tissue structures. IMPRESSION: Unremarkable AP chest - Medical Decision Making There is a 23-year-old female that presents emergency room with sickle cell crisis. Patient complained of chest pain, back pain and leg pain. Patient's labs unremarkable except for elevated reticulocyte count and anemia. - Differential Diagnosis sickle cell crisis,. chest pain. Leg pain. Back pain. Critical Care Time: Yes Critical care attestation.: If time is entered above; I have spent that time in minutes in the direct care of this critically ill patient, excluding procedure time. Critical Care Time: 35 minutes ED Disposition Clinical Impression: Acute chest syndrome, Sickle cell pain crisis, Leg pain, bilateral Sickle cell anemia Qualifiers: Sickle-cell associated disorders: with acute chest syndrome Qualified Code(s): D57.01 - Hb-SS disease with acute chest syndrome Chest pain Qualifiers: Chest pain type: unspecified Qualified Code(s): R07.9 - Chest pain, unspecified Back pain Qualifiers: Back pain location: low back pain Chronicity: acute Back pain laterality: bila teral Sciatica presence: without sciatica Qualified Code(s): M54.5 - Low back pain Disposition: -09 OP ADMIT IP TO THIS HOSP Is pt being admited?: Yes Does the pt Need Aspirin: No Condition: Critical Time of Disposition: 09:45
[2019-02-08] MEDS ORDERED: ZOFRAN IV ONE (09:00)
[2019-02-08] MEDS ORDERED: ZOFRAN ONE (09:05)
[2019-02-08 09:07] LABS: Hematocrit 24.5 % (30.3-42.9); Hemoglobin 8.8 gm/dl (10.1-14.3); Mean Corpuscular HGB Conc 36 % (30-34); Mean Corpuscular Volume 90 fl (79-97); Platelet Count 494 K/mm3 (140-440); Red Blood Count 2.73 M/mm3 (3.65-5.03)
[2019-02-08 09:09] LABS: Red Cell Distribution Width 23.1 % (13.2-15.2)
[2019-02-08 09:33] LABS: BUN/Creatinine Ratio 35; Blood Urea Nitrogen 7 mg/dL (7-17); Calcium 10.1 mg/dL (8.4-10.2); Hemolysis Index 119
[2019-02-08 09:36] LABS: Creatine Kinase MB < 1.0 ng/mL (0.0-4.0)
[2019-02-08] MEDS ORDERED: ASPIRIN PO ONE (09:36)
[2019-02-08] MEDS ORDERED: NACL 0.9% 1000 ML 1,000 ML IV ONE (09:38)
[2019-02-08] MEDS ORDERED: NACL 0.9% 1000 ML 1,000 ML ONE (09:42)
--- NOTE | 2019-02-08 10:16 | XRay Report ---
AP CHEST: HISTORY: chest pain AP view of the chest demonstrates a normal mediastinal and cardiac contour with clear lungs and normal bony and soft tissue structures. IMPRESSION: Unremarkable AP chest.
[2019-02-08 11:34] LABS: Anisocytosis 2+; Band Neutrophils # (Manual) 0.4 K/mm3; Hypochromasia 1+; Myelocytes # (Manual) 0.1 K/mm3; Sickle Cells 1+; Total Cells Counted 100
[2019-02-08 11:35] LABS: Platelet Estimate Consistent w Auto
[2019-02-08] MEDS ORDERED: TYLENOL PO PRN (13:34)
[2019-02-08] MEDS ORDERED: SODIUM CHLORIDE FLUSH SYRINGE 10 ML IV PRN (13:34)
[2019-02-08] MEDS ORDERED: ZOFRAN IV PRN (13:34)
--- NOTE | 2019-02-08 13:34 | History and Physical Report ---
History of Present Illness Date of examination: 02/08/19 Date of admission: 02/08/19 09:42 Chief complaint: Sickle cell pain crisis History of present illness: Patient is a 23-year-old female that presents emergency room via EMS for sickle cell crisis. Patient states her last crisis was a month ago. Patient states he is having chest pain, leg pain and back pain. Patient states her pain is 10 out of 10. States her pain is worse with walking and movement and palpation. Patient states her pain is better with rest. Patient states she is unable to take morphine and Dilaudid due to allergies. Patient states they gave her fentanyl and Benadryl and Toradol with her crisis. Past History Past Medical History: other (sickle cell crisis) Past Surgical History: No surgical history Social history: no significant social history Family history: no significant family history Medications and Allergies Allergies Allergy/AdvReac Type Severity Reaction Status Date / Time hydromorphone HCl Allergy Shortness Verified 01/13/19 16:52 [From Dilaudid] of Breath morphine Allergy Shortness Verified 01/13/19 16:52 of Breath Home Medications Medication Instructions Recorded Confirmed Last Taken Type ALBUTEROL Inhaler (OR & NICU) 2 puff IH QID PRN #1 inhalation 08/07/18 02/08/19 Unknown Rx [ProAir HFA Inhaler] Oxycodone HCl/Acetaminophen 1 each PO Q6HR PRN #14 tablet 01/14/19 02/08/19 Unknown Rx [Percocet 7.5/325 mg] traMADol [Ultram] 50 mg PO Q6HR PRN #12 tablet 01/14/19 02/08/19 Unknown Rx Review of Systems All systems: negative Exam - Constitutional Vitals: Temp Pulse Resp BP Pulse Ox 98.4 F 82 13 103/67 96 02/08/19 08:46 02/08/19 10:31 02/08/19 10:31 02/08/19 11:01 02/08/19 11:01 General appearance: Present: no acute distress, well-nourished - EENT Eyes: Present: PERRL ENT: hearing intact, clear oral mucosa - Neck Neck: Present: supple, normal ROM - Respiratory Respiratory effort: normal Respiratory: bilateral: CTA - Cardiovascular Heart Sounds: Present: S1 & S2. Absent: rub, click - Extremities Extremities: pulses symmetrical, No edema Peripheral Pulses: within normal limits - Abdominal General gastrointestinal: Present: soft, non-tender, non-distended, normal bowel sounds Female genitourinary: Present: normal - Integumentary Integumentary: Present: clear, warm, dry - Musculoskeletal Musculoskeletal: gait normal, strength equal bilaterally - Psychiatric Psychiatric: appropriate mood/affect, intact judgment & insight - Neurologic Neurologic: CNII-XII intact, moves all extremities Results - Labs CBC & Chem 7: 02/08/19 Unknown 02/08/19 Unknown Labs: Abnormal lab results 02/08/19 02/08/19 Range/Units Unknown Unknown WBC 12.2 H (4.5-11.0) K/mm3 RBC 2.73 L (3.65-5.03) M/mm3 Hgb 8.8 L (10.1-14.3) gm/dl Hct 24.5 L (30.3-42.9) % MCHC 36 H (30-34) % RDW 23.1 H (13.2-15.2) % Plt Count 494 H (140-440) K/mm3 Basophils % (Manual) 2.0 H (0.0-1.8) % Nucleated RBC % 1.0 H (0.0-0.9) % Basophils # (Manual) 0.2 H (0.0-0.1) K/mm3 Percent Retic 10.31 H (0.78-2.58) % Creatinine < 0.2 L (0.7-1.2) mg/dL Assessment and Plan Sickle cell pain crisis -Pain controlled on current when necessary narcotic -Continue IV fluid Leukocytosis. -Stress-induced from #1. -No evidence of infection. -Chest x-ray negative. Urinalysis negative
[2019-02-08] MEDS: STADOL IV PRN ×2 (17:00→23:16)
[2019-02-08] MEDS ORDERED: TORADOL IV STA (18:19)
[2019-02-08] MEDS: NACL 0.9% 1000 ML 1,000 ML IV SCH (18:31)
[2019-02-08] MEDS: SODIUM CHLORIDE FLUSH SYRINGE 10 ML IV SCH (22:25)
[2019-02-09] MEDS: STADOL IV PRN ×4 (02:46→20:48)
[2019-02-09 06:09] LABS: Basophils # (Auto) 0.3 K/mm3 (0.0-0.1); Basophils % (Auto) 2.2 % (0.0-1.8); Eosinophils # (Auto) 0.1 K/mm3 (0.0-0.4); Eosinophils % (Auto) 0.3 % (0.0-4.3); Hematocrit 21.9 % (30.3-42.9); Hemoglobin 7.9 gm/dl (10.1-14.3); Lymphocytes # (Auto) 2.5 K/mm3 (1.2-5.4); Lymphocytes % (Auto) 16.3 % (13.4-35.0); Mean Corpuscular HGB Conc 36 % (30-34); Mean Corpuscular Volume 88 fl (79-97); Monocytes # (Auto) 1.7 K/mm3 (0.0-0.8); Monocytes % (Auto) 10.8 % (0.0-7.3); Platelet Count 487 K/mm3 (140-440); Red Blood Count 2.49 M/mm3 (3.65-5.03)
[2019-02-09 06:17] LABS: Red Cell Distribution Width 23.6 % (13.2-15.2)
[2019-02-09] MEDS: NACL 0.9% 1000 ML 1,000 ML IV SCH ×2 (06:22→20:08)
[2019-02-09 06:34] LABS: BUN/Creatinine Ratio 25; Blood Urea Nitrogen 5 mg/dL (7-17); Calcium 9.1 mg/dL (8.4-10.2); Hemolysis Index 16
[2019-02-09] MEDS: SODIUM CHLORIDE FLUSH SYRINGE 10 ML IV SCH ×3 (10:23→21:14)
[2019-02-09] MEDS: LOVENOX SUB-Q SCH (10:23)
--- NOTE | 2019-02-09 10:39 | Progress Note ---
Assessment and Plan Assessment and plan: Sickle cell pain crisis -Percocet 1 every 4 hours per patient request. Also, we will add Toradol which patient states that she has responded to in the past. -Continue IV fluid Leukocytosis. -Stress-induced from #1. -No evidence of infection. -Chest x-ray negative. Urinalysis negative History Interval history: No new Issues overnight Hospitalist Physical - Constitutional Vitals: Temp Pulse Resp BP Pulse Ox 98.9 F 100 H 18 103/57 91 02/09/19 07:38 02/09/19 08:00 02/09/19 08:49 02/09/19 07:38 02/09/19 08:49 General appearance: Present: no acute distress, well-nourished - EENT Eyes: Present: PERRL, EOM intact ENT: hearing intact, clear oral mucosa, dentition normal - Neck Neck: Present: supple, normal ROM - Respiratory Respiratory effort: normal Respiratory: bilateral: CTA - Cardiovascular Rhythm: regular Heart Sounds: Present: S1 & S2. Absent: gallop, rub - Extremities Extremities: no ischemia, No edema, Full ROM - Abdominal General gastrointestinal: soft, non-tender, non-distended, normal bowel sounds - Integumentary Integumentary: Present: clear, warm, dry - Neurologic Neurologic: CNII-XII intact, moves all extremities Results - Labs CBC & Chem 7: 02/09/19 05:41 02/09/19 05:41 Labs: Laboratory Last Values WBC 15.4 K/mm3 (4.5-11.0) H 02/09/19 05:41 RBC 2.49 M/mm3 (3.65-5.03) L 02/09/19 05:41 Hgb 7.9 gm/dl (10.1-14.3) L 02/09/19 05:41 Hct 21.9 % (30.3-42.9) L 02/09/19 05:41 MCV 88 fl (79-97) 02/09/19 05:41 MCH 32 pg (28-32) 02/09/19 05:41 MCHC 36 % (30-34) H 02/09/19 05:41 RDW 23.6 % (13.2-15.2) H 02/09/19 05:41 Plt Count 487 K/mm3 (140-440) H 02/09/19 05:41 Lymph % (Auto) 16.3 % (13.4-35.0) 02/09/19 05:41 [place] % (Auto) 10.8 % (0.0-7.3) H 02/09/19 05:41 Eos % (Auto) 0.3 % (0.0-4.3) 02/09/19 05:41 Baso % (Auto) 2.2 % (0.0-1.8) H 02/09/19 05:41 Lymph # 2.5 K/mm3 (1.2-5.4) 02/09/19 05:41 [place] # 1.7 K/mm3 (0.0-0.8) H 02/09/19 05:41 Eos # 0.1 K/mm3 (0.0-0.4) 02/09/19 05:41 Baso # 0.3 K/mm3 (0.0-0.1) H 02/09/19 05:41 Add Manual Diff Complete 02/08/19 Unknown Total Counted 100 02/08/19 Unknown Seg Neutrophils % 70.4 % (40.0-70.0) H 02/09/19 05:41 Seg Neuts % (Manual) 59.0 % (40.0-70.0) 02/08/19 Unknown 3.0 % 02/08/19 Unknown 27.0 % (13.4-35.0) 02/08/19 Unknown Reactive Lymphs % (Man) 0 % 02/08/19 Unknown 5.0 % (0.0-7.3) 02/08/19 Unknown 2.0 % (0.0-4.3) 02/08/19 Unknown 2.0 % (0.0-1.8) H 02/08/19 Unknown 1.0 % 02/08/19 Unknown 1.0 % 02/08/19 Unknown 0 % 02/08/19 Unknown 0 % 02/08/19 Unknown Nucleated RBC % 1.0 % (0.0-0.9) H 02/08/19 Unknown Seg Neutrophils # 10.9 K/mm3 (1.8-7.7) H 02/09/19 05:41 Seg Neutrophils # Man 7.2 K/mm3 (1.8-7.7) 02/08/19 Unknown Band Neutrophils # 0.4 K/mm3 02/08/19 Unknown 3.3 K/mm3 (1.2-5.4) 02/08/19 Unknown Abs React Lymphs (Man) 0.0 K/mm3 02/08/19 Unknown 0.6 K/mm3 (0.0-0.8) 02/08/19 Unknown 0.2 K/mm3 (0.0-0.4) 02/08/19 Unknown 0.2 K/mm3 (0.0-0.1) H 02/08/19 Unknown 0.1 K/mm3 02/08/19 Unknown 0.1 K/mm3 02/08/19 Unknown 0.0 K/mm3 02/08/19 Unknown Blast Cells # 0.0 K/mm3 02/08/19 Unknown WBC Morphology Not Reportable 02/08/19 Unknown Hypersegmented Neuts Not Reportable 02/08/19 Unknown Hyposegmented Neuts Not Reportable 02/08/19 Unknown Hypogranular Neuts Not Reportable 02/08/19 Unknown Not Reportable 02/08/19 Unknown Not Reportable 02/08/19 Unknown Not Reportable 02/08/19 Unknown Not Reportable 02/08/19 Unknown Not Reportable 02/08/19 Unknown Not Reportable 02/08/19 Unknown Consistent w auto 02/08/19 Unknown Not Reportable 02/08/19 Unknown Plt Clumps, EDTA Not Reportable 02/08/19 Unknown Not Reportable 02/08/19 Unknown Not Reportable 02/08/19 Unknown Not Reportable 02/08/19 Unknown Plt Morphology Comment Not Reportable 02/08/19 Unknown RBC Morphology Not Reportable 02/08/19 Unknown Dimorphic RBCs Not Reportable 02/08/19 Unknown Not Reportable 02/08/19 Unknown 1+ 02/08/19 Unknown Not Reportable 02/08/19 Unknown 2+ 02/08/19 Unknown Not Reportable 02/08/19 Unknown Not Reportable 02/08/19 Unknown Not Reportable 02/08/19 Unknown Not Reportable 02/08/19 Unknown 1+ 02/08/19 Unknown Not Reportable 02/08/19 Unknown Not Reportable 02/08/19 Unknown Not Reportable 02/08/19 Unknown Not Reportable 02/08/19 Unknown Not Reportable 02/08/19 Unknown Not Reportable 02/08/19 Unknown Not Reportable 02/08/19 Unknown Not Reportable 02/08/19 Unknown Not Reportable 02/08/19 Unknown Not Reportable 02/08/19 Unknown Acanthocytes (Spur) Not Reportable 02/08/19 Unknown Rouleaux Not Reportable 02/08/19 Unknown Not Reportable 02/08/19 Unknown Not Reportable 02/08/19 Unknown Not Reportable 02/08/19 Unknown Percent Retic 10.31 % (0.78-2.58) H 02/08/19 Unknown Not Reportable 02/08/19 Unknown Hem Pathologist Commnt No 02/08/19 Unknown Sodium 141 mmol/L (137-145) 02/09/19 05:41 Potassium 4.1 mmol/L (3.6-5.0) 02/09/19 05:41 Chloride 104.4 mmol/L (98-107) 02/09/19 05:41 Carbon Dioxide 22 mmol/L (22-30) 02/09/19 05:41 19 mmol/L 02/09/19 05:41 BUN 5 mg/dL (7-17) L 02/09/19 05:41 < 0.2 mg/dL (0.7-1.2) L 02/09/19 05:41 Estimated GFR > 60 ml/min 02/09/19 05:41 25 % 02/09/19 05:41 Glucose 98 mg/dL (65-100) 02/09/19 05:41 Calcium 9.1 mg/dL (8.4-10.2) 02/09/19 05:41 58 units/L (30-135) 02/08/19 Unknown CK-MB (CK-2) < 1.0 ng/mL (0.0-4.0) 02/08/19 Unknown CK-MB (CK-2) Rel Index 1.7 (0-4) 02/08/19 Unknown < 0.010 ng/mL (0.00-0.029) 02/08/19 Unknown HCG, Qual Negative (Negative) 02/08/19 Unknown Active Medications - Current Medications Current Medications: Generic Name Dose Route Start Last Admin Trade Name Freq PRN Reason Stop Dose Admin Acetaminophen 650 mg 02/08/19 13:34 Tylenol PO Q4H PRN Pain MILD(1-3)/Fever >100.5/MARI Butorphanol Tartrate 1 mg 02/08/19 13:43 02/09/19 10:22 Stadol IV 1 mg Q3H PRN Administration Labor Pain Enoxaparin Sodium 40 mg 02/09/19 10:00 02/09/19 10:23 Lovenox SUB-Q 40 mg QDAY YASSINE Administration Sodium Chloride 1,000 mls @ 75 mls/hr 02/08/19 19:20 02/09/19 06:22 Nacl 0.9% 1000 Ml IV 75 mls/hr DIRECT YASSINE Administration Ondansetron HCl 4 mg 02/08/19 13:34 Zofran IV Q8H PRN Nausea And Vomiting Sodium Chloride 10 ml 02/08/19 22:00 02/09/19 10:23 Sodium Chloride Flush Syringe 10 Ml IV 10 ml BID YASSINE Administration Sodium Chloride 10 ml 02/08/19 13:34 Sodium Chloride Flush Syringe 10 Ml IV PRN PRN LINE FLUSH
[2019-02-09] MEDS: PERCOCET 5/325 PO PRN ×2 (12:21→20:07)
[2019-02-09] MEDS: AFLURIA QUAD 2018-2019 SYRINGE IM ONE ×2 (12:22→12:29)
[2019-02-09] MEDS: TORADOL IV PRN ×2 (13:17→17:41)
[2019-02-09] MEDS: NUBAIN IV PRN (23:33)
[2019-02-10] MEDS: TORADOL IV PRN ×3 (02:56→21:28)
[2019-02-10] MEDS: PERCOCET 5/325 PO PRN ×3 (02:56→14:59)
[2019-02-10] MEDS: STADOL IV PRN ×3 (03:10→19:08)
[2019-02-10] MEDS: NUBAIN IV PRN ×2 (06:41→16:16)
--- NOTE | 2019-02-10 09:17 | Discharge Summary ---
Providers - Providers Date of Admission: 02/08/19 09:42 Date of discharge: 02/12/19 Attending physician: RENE LOPEZ [facility] Reason for admission: sickle cell ain crisis Condition: Critical Hospital course: Patient is a 23-year-old female that presents emergency room via EMS for sickle cell crisis. Patient states her last crisis was a month ago. Patient states he is having chest pain, leg pain and back pain. Patient states her pain is 10 out of 10. States her pain is worse with walking and movement and palpation. Patient states her pain is better with rest. Patient states she is unable to take morphine and Dilaudid due to allergies. Patient states they gave her fen tanyl and Benadryl and Toradol with her crisis. Patient received Benadryl and Toradol with minimal relief. Stadol was also added which gave no relief as well. Patient was then treated with Nubain with significant relief. Patient returned to her baseline and was felt to have received maximal hospital benefit for discharge. Dedicated discharge time 32 minutes. 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 (3) Sickle cell pain crisis Status: Acute Core Measure Documentation - Palliative Care Palliative Care/ Comfort Measures: Not Applicable - Core Measures Any of the following diagnoses?: none Exam - Constitutional Vitals: Temp Pulse Resp BP Pulse Ox 98.4 F 90 16 111/70 93 02/10/19 08:55 02/10/19 08:55 02/10/19 08:55 02/10/19 08:55 02/10/19 08:55 General appearance: Present: no acute distress, well-nourished - EENT Eyes: Present: PERRL ENT: hearing intact, clear oral mucosa - Neck Neck: Present: supple, normal ROM - Respiratory Respiratory effort: normal Respiratory: bilateral: CTA - Cardiovascular Heart Sounds: Present: S1 & S2. Absent: rub, click - Extremities Extremities: pulses symmetrical, No edema Peripheral Pulses: within normal limits - Abdominal General gastrointestinal: Present: soft, non-tender, non-distended, normal bowel sounds Female genitourinary: Present: normal - Integumentary Integumentary: Present: clear, warm, dry - Musculoskeletal Musculoskeletal: gait normal, strength equal bilaterally - Psychiatric Psychiatric: appropriate mood/affect, intact judgment & insight - Neurologic Neurologic: CNII-XII intact, moves all extremities Plan Activity: advance as tolerated Weight Bearing Status: Weight Bear as Tolerated Diet: regular Follow up with: [facility] VICKY [Primary Care Provider] - 3-5 Days OZ VALENZUELA DO [Staff Physician] - 7 Days Prescriptions: Oxycodone HCl/Acetaminophen [Percocet 7.5/325 mg] 1 each PO Q6HR PRN #14 tablet PRN Reason: Pain traMADol [Ultram 50 MG tab] 50 mg PO Q6HR PRN #12 tablet PRN Reason: Pain
[2019-02-10] MEDS: LOVENOX SUB-Q SCH (10:36)
[2019-02-10] MEDS: SODIUM CHLORIDE FLUSH SYRINGE 10 ML IV SCH ×2 (10:36→21:17)
--- NOTE | 2019-02-10 11:07 | Progress Note ---
Assessment and Plan Assessment and plan: Sickle cell pain crisis -Continue Percocet and Toradol. Nubain added for better control -Continue IV fluid -Check reticulocyte count. Leukocytosis. -Stress-induced from #1. -No evidence of infection. -Chest x-ray negative. Urinalysis negative Disposition. -Anticipate discharge in a.m. - Patient Problems (1) Leg pain, bilateral Current Visit: Yes Status: Acute (2) Sickle cell anemia Current Visit: Yes Status: Acute Qualifiers: Sickle-cell associated disorders: with acute chest syndrome Qualified Code( s): D57.01 - Hb-SS disease with acute chest syndrome (3) Sickle cell pain crisis Current Visit: Yes Status: Acute History Interval history: No new Issues overnight Hospitalist Physical - Constitutional Vitals: Temp Pulse Resp BP Pulse Ox 98.4 F 90 20 111/70 93 02/10/19 08:55 02/10/19 08:55 02/10/19 10:35 02/10/19 08:55 02/10/19 08:55 General appearance: Present: no acute distress, well-nourished - EENT Eyes: Present: PERRL, EOM intact ENT: hearing intact, clear oral mucosa, dentition normal - Neck Neck: Present: supple, normal ROM - Respiratory Respiratory effort: normal Respiratory: bilateral: CTA - Cardiovascular Rhythm: regular Heart Sounds: Present: S1 & S2. Absent: gallop, rub - Extremities Extremities: no ischemia, No edema, Full ROM - Abdominal General gastrointestinal: soft, non-tender, non-distended, normal bowel sounds - Integumentary Integumentary: Present: clear, warm, dry - Neurologic Neurologic: CNII-XII intact, moves all extremities Results - Labs CBC & Chem 7: 02/09/19 05:41 02/09/19 05:41 Labs: Laboratory Last Values WBC 15.4 K/mm3 (4.5-11.0) H 02/09/19 05:41 RBC 2.49 M/mm3 (3.65-5.03) L 02/09/19 05:41 Hgb 7.9 gm/dl (10.1-14.3) L 02/09/19 05:41 Hct 21.9 % (30.3-42.9) L 02/09/19 05:41 MCV 88 fl (79-97) 02/09/19 05:41 MCH 32 pg (28-32) 02/09/19 05:41 MCHC 36 % (30-34) H 02/09/19 05:41 RDW 23.6 % (13.2-15.2) H 02/09/19 05:41 Plt Count 487 K/mm3 (140-440) H 02/09/19 05:41 Lymph % (Auto) 16.3 % (13.4-35.0) 02/09/19 05:41 [place] % (Auto) 10.8 % (0.0-7.3) H 02/09/19 05:41 Eos % (Auto) 0.3 % (0.0-4.3) 02/09/19 05:41 Baso % (Auto) 2.2 % (0.0-1.8) H 02/09/19 05:41 Lymph # 2.5 K/mm3 (1.2-5.4) 02/09/19 05:41 [place] # 1.7 K/mm3 (0.0-0.8) H 02/09/19 05:41 Eos # 0.1 K/mm3 (0.0-0.4) 02/09/19 05:41 Baso # 0.3 K/mm3 (0.0-0.1) H 02/09/19 05:41 Add Manual Diff Complete 02/08/19 Unknown Total Counted 100 02/08/19 Unknown Seg Neutrophils % 70.4 % (40.0-70.0) H 02/09/19 05:41 Seg Neuts % (Manual) 59.0 % (40.0-70.0) 02/08/19 Unknown 3.0 % 02/08/19 Unknown 27.0 % (13.4-35.0) 02/08/19 Unknown Reactive Lymphs % (Man) 0 % 02/08/19 Unknown 5.0 % (0.0-7.3) 02/08/19 Unknown 2.0 % (0.0-4.3) 02/08/19 Unknown 2.0 % (0.0-1.8) H 02/08/19 Unknown 1.0 % 02/08/19 Unknown 1.0 % 02/08/19 Unknown 0 % 02/08/19 Unknown 0 % 02/08/19 Unknown Nucleated RBC % 1.0 % (0.0-0.9) H 02/08/19 Unknown Seg Neutrophils # 10.9 K/mm3 (1.8-7.7) H 02/09/19 05:41 Seg Neutrophils # Man 7.2 K/mm3 (1.8-7.7) 02/08/19 Unknown Band Neutrophils # 0.4 K/mm3 02/08/19 Unknown 3.3 K/mm3 (1.2-5.4) 02/08/19 Unknown Abs React Lymphs (Man) 0.0 K/mm3 02/08/19 Unknown 0.6 K/mm3 (0.0-0.8) 02/08/19 Unknown 0.2 K/mm3 (0.0-0.4) 02/08/19 Unknown 0.2 K/mm3 (0.0-0.1) H 02/08/19 Unknown 0.1 K/mm3 02/08/19 Unknown 0.1 K/mm3 02/08/19 Unknown 0.0 K/mm3 02/08/19 Unknown Blast Cells # 0.0 K/mm3 02/08/19 Unknown WBC Morphology Not Reportable 02/08/19 Unknown Hypersegmented Neuts Not Reportable 02/08/19 Unknown Hyposegmented Neuts Not Reportable 02/08/19 Unknown Hypogranular Neuts Not Reportable 02/08/19 Unknown Not Reportable 02/08/19 Unknown Not Reportable 02/08/19 Unknown Not Reportable 02/08/19 Unknown Not Reportable 02/08/19 Unknown Not Reportable 02/08/19 Unknown Not Reportable 02/08/19 Unknown Consistent w auto 02/08/19 Unknown Not Reportable 02/08/19 Unknown Plt Clumps, EDTA Not Reportable 02/08/19 Unknown Not Reportable 02/08/19 Unknown Not Reportable 02/08/19 Unknown Not Reportable 02/08/19 Unknown Plt Morphology Comment Not Reportable 02/08/19 Unknown RBC Morphology Not Reportable 02/08/19 Unknown Dimorphic RBCs Not Reportable 02/08/19 Unknown Not Reportable 02/08/19 Unknown 1+ 02/08/19 Unknown Not Reportable 02/08/19 Unknown 2+ 02/08/19 Unknown Not Reportable 02/08/19 Unknown Not Reportable 02/08/19 Unknown Not Reportable 02/08/19 Unknown Not Reportable 02/08/19 Unknown 1+ 02/08/19 Unknown Not Reportable 02/08/19 Unknown Not Reportable 02/08/19 Unknown Not Reportable 02/08/19 Unknown Not Reportable 02/08/19 Unknown Not Reportable 02/08/19 Unknown Not Reportable 02/08/19 Unknown Not Reportable 02/08/19 Unknown Not Reportable 02/08/19 Unknown Not Reportable 02/08/19 Unknown Not Reportable 02/08/19 Unknown Acanthocytes (Spur) Not Reportable 02/08/19 Unknown Rouleaux Not Reportable 02/08/19 Unknown Not Reportable 02/08/19 Unknown Not Reportable 02/08/19 Unknown Not Reportable 02/08/19 Unknown Percent Retic 10.31 % (0.78-2.58) H 02/08/19 Unknown Not Reportable 02/08/19 Unknown Hem Pathologist Commnt No 02/08/19 Unknown Sodium 141 mmol/L (137-145) 02/09/19 05:41 Potassium 4.1 mmol/L (3.6-5.0) 02/09/19 05:41 Chloride 104.4 mmol/L (98-107) 02/09/19 05:41 Carbon Dioxide 22 mmol/L (22-30) 02/09/19 05:41 19 mmol/L 02/09/19 05:41 BUN 5 mg/dL (7-17) L 02/09/19 05:41 < 0.2 mg/dL (0.7-1.2) L 02/09/19 05:41 Estimated GFR > 60 ml/min 02/09/19 05:41 25 % 02/09/19 05:41 Glucose 98 mg/dL (65-100) 02/09/19 05:41 Calcium 9.1 mg/dL (8.4-10.2) 02/09/19 05:41 58 units/L (30-135) 02/08/19 Unknown CK-MB (CK-2) < 1.0 ng/mL (0.0-4.0) 02/08/19 Unknown CK-MB (CK-2) Rel Index 1.7 (0-4) 02/08/19 Unknown < 0.010 ng/mL (0.00-0.029) 02/08/19 Unknown HCG, Qual Negative (Negative) 02/08/19 Unknown Active Medications - Current Medications Current Medications: Generic Name Dose Route Start Last Admin Trade Name Freq PRN Reason Stop Dose Admin Acetaminophen 650 mg 02/08/19 13:34 Tylenol PO Q4H PRN Pain MILD(1-3)/Fever >100.5/MARI Butorphanol Tartrate 1 mg 02/08/19 13:43 02/10/19 10:35 Stadol IV 1 mg Q3H PRN Administration Pain , Severe (7-10) Enoxaparin Sodium 40 mg 02/09/19 10:00 02/10/19 10:36 Lovenox SUB-Q 40 mg QDAY YASSINE Administration Sodium Chloride 1,000 mls @ 75 mls/hr 02/08/19 19:20 02/09/19 20:08 Nacl 0.9% 1000 Ml IV 75 mls/hr DIRECT YASSINE Administration Ketorolac Tromethamine 30 mg 02/09/19 11:00 02/10/19 02:56 Toradol IV 02/14/19 10:59 30 mg Q6H PRN Administration Pain, Moderate (4-6) Nalbuphine HCl 10 mg 02/09/19 21:11 02/10/19 06:41 Nubain IV 10 mg Q6H PRN Administration Pain, Moderate (4-6) Ondansetron HCl 4 mg 02/08/19 13:34 Zofran IV Q8H PRN Nausea And Vomiting Oxycodone/Acetaminophen 1 tab 02/09/19 11:00 02/10/19 06:27 Percocet 5/325 PO 1 tab Q4H PRN Administration Pain, Moderate (4-6) Sodium Chloride 10 ml 02/08/19 22:00 02/10/19 10:36 Sodium Chloride Flush Syringe 10 Ml IV 10 ml BID YASSINE Administration Sodium Chloride 10 ml 02/08/19 13:34 Sodium Chloride Flush Syringe 10 Ml IV PRN PRN LINE FLUSH
[2019-02-10] MEDS: NACL 0.9% 1000 ML 1,000 ML IV SCH ×2 (12:18→21:17)
[2019-02-11] MEDS: STADOL IV PRN (03:23)
[2019-02-11] MEDS: NACL 0.9% 1000 ML 1,000 ML IV SCH ×2 (06:13→18:03)
[2019-02-11] MEDS: NUBAIN IV PRN ×2 (06:22→22:24)
[2019-02-11] MEDS: TORADOL IV PRN ×2 (09:37→18:04)
[2019-02-11] MEDS: LOVENOX SUB-Q SCH (09:37)
[2019-02-11] MEDS: PERCOCET 5/325 PO PRN ×2 (09:39→18:03)
--- NOTE | 2019-02-11 10:51 | Progress Note ---
Assessment and Plan Assessment and plan: Sickle cell pain crisis -Continue Percocet and Toradol. Nubain added for better control -Continue IV fluid -Increased reticulocyte count. Leukocytosis. -Stress-induced from #1. -No evidence of infection. -Chest x-ray negative. Urinalysis negative Disposition. -Anticipate discharge in a.m. 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 Patient reports no improvement in her pain. Hospitalist Physical - Constitutional Vitals: Temp Pulse Resp BP Pulse Ox 99.4 F 96 H 20 126/75 93 02/11/19 08:45 02/11/19 08:45 02/11/19 09:39 02/11/19 08:45 02/11/19 08:45 General appearance: Present: no acute distress, well-nourished - EENT Eyes: Present: PERRL, EOM intact ENT: hearing intact, clear oral mucosa, dentition normal - Neck Neck: Present: supple, normal ROM - Respiratory Respiratory effort: normal Respiratory: bilateral: CTA - Cardiovascular Rhythm: regular Heart Sounds: Present: S1 & S2. Absent: gallop, rub - Extremities Extremities: no ischemia, No edema, Full ROM - Abdominal General gastrointestinal: soft, non-tender, non-distended, normal bowel sounds - Integumentary Integumentary: Present: clear, warm, dry - Neurologic Neurologic: CNII-XII intact, moves all extremities Results - Labs CBC & Chem 7: 02/09/19 05:41 02/09/19 05:41 Labs: Laboratory Last Values WBC 15.4 K/mm3 (4.5-11.0) H 02/09/19 05:41 RBC 2.49 M/mm3 (3.65-5.03) L 02/09/19 05:41 Hgb 7.9 gm/dl (10.1-14.3) L 02/09/19 05:41 Hct 21.9 % (30.3-42.9) L 02/09/19 05:41 MCV 88 fl (79-97) 02/09/19 05:41 MCH 32 pg (28-32) 02/09/19 05:41 MCHC 36 % (30-34) H 02/09/19 05:41 RDW 23.6 % (13.2-15.2) H 02/09/19 05:41 Plt Count 487 K/mm3 (140-440) H 02/09/19 05:41 Lymph % (Auto) 16.3 % (13.4-35.0) 02/09/19 05:41 [place] % (Auto) 10.8 % (0.0-7.3) H 02/09/19 05:41 Eos % (Auto) 0.3 % (0.0-4.3) 02/09/19 05:41 Baso % (Auto) 2.2 % (0.0-1.8) H 02/09/19 05:41 Lymph # 2.5 K/mm3 (1.2-5.4) 02/09/19 05:41 [place] # 1.7 K/mm3 (0.0-0.8) H 02/09/19 05:41 Eos # 0.1 K/mm3 (0.0-0.4) 02/09/19 05:41 Baso # 0.3 K/mm3 (0.0-0.1) H 02/09/19 05:41 Add Manual Diff Complete 02/08/19 Unknown Total Counted 100 02/08/19 Unknown Seg Neutrophils % 70.4 % (40.0-70.0) H 02/09/19 05:41 Seg Neuts % (Manual) 59.0 % (40.0-70.0) 02/08/19 Unknown 3.0 % 02/08/19 Unknown 27.0 % (13.4-35.0) 02/08/19 Unknown Reactive Lymphs % (Man) 0 % 02/08/19 Unknown 5.0 % (0.0-7.3) 02/08/19 Unknown 2.0 % (0.0-4.3) 02/08/19 Unknown 2.0 % (0.0-1.8) H 02/08/19 Unknown 1.0 % 02/08/19 Unknown 1.0 % 02/08/19 Unknown 0 % 02/08/19 Unknown 0 % 02/08/19 Unknown Nucleated RBC % 1.0 % (0.0-0.9) H 02/08/19 Unknown Seg Neutrophils # 10.9 K/mm3 (1.8-7.7) H 02/09/19 05:41 Seg Neutrophils # Man 7.2 K/mm3 (1.8-7.7) 02/08/19 Unknown Band Neutrophils # 0.4 K/mm3 02/08/19 Unknown 3.3 K/mm3 (1.2-5.4) 02/08/19 Unknown Abs React Lymphs (Man) 0.0 K/mm3 02/08/19 Unknown 0.6 K/mm3 (0.0-0.8) 02/08/19 Unknown 0.2 K/mm3 (0.0-0.4) 02/08/19 Unknown 0.2 K/mm3 (0.0-0.1) H 02/08/19 Unknown 0.1 K/mm3 02/08/19 Unknown 0.1 K/mm3 02/08/19 Unknown 0.0 K/mm3 02/08/19 Unknown Blast Cells # 0.0 K/mm3 02/08/19 Unknown WBC Morphology Not Reportable 02/08/19 Unknown Hypersegmented Neuts Not Reportable 02/08/19 Unknown Hyposegmented Neuts Not Reportable 02/08/19 Unknown Hypogranular Neuts Not Reportable 02/08/19 Unknown Not Reportable 02/08/19 Unknown Not Reportable 02/08/19 Unknown Not Reportable 02/08/19 Unknown Not Reportable 02/08/19 Unknown Not Reportable 02/08/19 Unknown Not Reportable 02/08/19 Unknown Consistent w auto 02/08/19 Unknown Not Reportable 02/08/19 Unknown Plt Clumps, EDTA Not Reportable 02/08/19 Unknown Not Reportable 02/08/19 Unknown Not Reportable 02/08/19 Unknown Not Reportable 02/08/19 Unknown Plt Morphology Comment Not Reportable 02/08/19 Unknown RBC Morphology Not Reportable 02/08/19 Unknown Dimorphic RBCs Not Reportable 02/08/19 Unknown Not Reportable 02/08/19 Unknown 1+ 02/08/19 Unknown Not Reportable 02/08/19 Unknown 2+ 02/08/19 Unknown Not Reportable 02/08/19 Unknown Not Reportable 02/08/19 Unknown Not Reportable 02/08/19 Unknown Not Reportable 02/08/19 Unknown 1+ 02/08/19 Unknown Not Reportable 02/08/19 Unknown Not Reportable 02/08/19 Unknown Not Reportable 02/08/19 Unknown Not Reportable 02/08/19 Unknown Not Reportable 02/08/19 Unknown Not Reportable 02/08/19 Unknown Not Reportable 02/08/19 Unknown Not Reportable 02/08/19 Unknown Not Reportable 02/08/19 Unknown Not Reportable 02/08/19 Unknown Acanthocytes (Spur) Not Reportable 02/08/19 Unknown Rouleaux Not Reportable 02/08/19 Unknown Not Reportable 02/08/19 Unknown Not Reportable 02/08/19 Unknown Not Reportable 02/08/19 Unknown Percent Retic 18.05 % (0.78-2.58) H 02/11/19 04:53 Not Reportable 02/08/19 Unknown Hem Pathologist Commnt No 02/08/19 Unknown Sodium 141 mmol/L (137-145) 02/09/19 05:41 Potassium 4.1 mmol/L (3.6-5.0) 02/09/19 05:41 Chloride 104.4 mmol/L (98-107) 02/09/19 05:41 Carbon Dioxide 22 mmol/L (22-30) 02/09/19 05:41 19 mmol/L 02/09/19 05:41 BUN 5 mg/dL (7-17) L 02/09/19 05:41 < 0.2 mg/dL (0.7-1.2) L 02/09/19 05:41 Estimated GFR > 60 ml/min 02/09/19 05:41 25 % 02/09/19 05:41 Glucose 98 mg/dL (65-100) 02/09/19 05:41 Calcium 9.1 mg/dL (8.4-10.2) 02/09/19 05:41 58 units/L (30-135) 02/08/19 Unknown CK-MB (CK-2) < 1.0 ng/mL (0.0-4.0) 02/08/19 Unknown CK-MB (CK-2) Rel Index 1.7 (0-4) 02/08/19 Unknown < 0.010 ng/mL (0.00-0.029) 02/08/19 Unknown HCG, Qual Negative (Negative) 02/08/19 Unknown Active Medications - Current Medications Current Medications: Generic Name Dose Route Start Last Admin Trade Name Freq PRN Reason Stop Dose Admin Acetaminophen 650 mg 02/08/19 13:34 Tylenol PO Q4H PRN Pain MILD(1-3)/Fever >100.5/MARI Butorphanol Tartrate 1 mg 02/08/19 13:43 02/11/19 03:23 Stadol IV 1 mg Q3H PRN Administration Pain , Severe (7-10) Enoxaparin Sodium 40 mg 02/09/19 10:00 02/11/19 09:37 Lovenox SUB-Q 40 mg QDAY YASSINE Administration Sodium Chloride 1,000 mls @ 75 mls/hr 02/08/19 19:20 02/11/19 06:13 Nacl 0.9% 1000 Ml IV 75 mls/hr DIRECT YASSINE Administration Ketorolac Tromethamine 30 mg 02/09/19 11:00 02/11/19 09:37 Toradol IV 02/14/19 10:59 30 mg Q6H PRN Administration Pain, Moderate (4-6) Nalbuphine HCl 10 mg 02/09/19 21:11 02/11/19 06:22 Nubain IV 10 mg Q6H PRN Administration Pain, Moderate (4-6) Ondansetron HCl 4 mg 02/08/19 13:34 Zofran IV Q8H PRN Nausea And Vomiting Oxycodone/Acetaminophen 1 tab 02/09/19 11:00 02/11/19 09:39 Percocet 5/325 PO 1 tab Q4H PRN Administration Pain, Moderate (4-6) Sodium Chloride 10 ml 02/08/19 22:00 02/10/19 21:17 Sodium Chloride Flush Syringe 10 Ml IV 10 ml BID YASSINE Administration Sodium Chloride 10 ml 02/08/19 13:34 Sodium Chloride Flush Syringe 10 Ml IV PRN PRN LINE FLUSH
[2019-02-12] MEDS: PERCOCET 5/325 PO PRN (02:22)
[2019-02-12] MEDS: TORADOL IV PRN ×2 (02:23→09:31)
[2019-02-12] MEDS: NACL 0.9% 1000 ML 1,000 ML IV SCH (02:27)
[2019-02-12] MEDS: SODIUM CHLORIDE FLUSH SYRINGE 10 ML IV SCH ×2 (02:31→09:32)
[2019-02-12 08:39] VITALS: BP 96/52
[2019-02-12] MEDS: LOVENOX SUB-Q SCH (09:33)
== END 2019-02-12 12:33 | disposition home or self-care (01) | DRG 812 ==
LOC: ED 08:30 → 4A 09:42
PROVIDERS: ADMIT Hospitalist; ATTEND Hospitalist
DX: D57.01 Hb-SS disease with acute chest syndrome (principal); D72.829 Elevated white blood cell count, unspecified; R07.9 Chest pain, unspecified; J45.909 Unspecified asthma, uncomplicated; M54.5 Low back pain; Z88.5 Allergy status to narcotic agent; Z79.899 Other long term (current) drug therapy; Z90.49 Acquired absence of other specified parts of digestive tract
CPT/HCPCS: 36415; 71045; 80048; 82550; 82553; 84484; 84703; 85007; 85025; 85045; 90686; 93005; 93010; 96361; 96374; 96375; G0378; J0595; J1200; J1650; J1885; J2300; J2405; J3010; J7030

== ENCOUNTER 2019-04-20 17:06 | Inpatient (IN) | payer MEDICAID ==
--- NOTE | 2019-04-20 17:30 | Event Note ---
ED Screening Note Date of service: 04/20/19 Time: 17:28 ED Screening Note: This is a 23 y.o. F. that presents to the ER with generalized pain. PMH of Sickle cell and asthma. This initial assessment/diagnostic orders/clinical plan/treatment(s) is/are subject to change based on patients health status, clinical progression and re- assessment by fellow clinical providers in the ED. Further treatment and workup at subsequent clinical providers discretion. Patient/guardian urged not to elope from the ED as their condition may be serious if not clinically assessed and managed. Initial orders include: Labs
[2019-04-20 19:04] LABS: Hematocrit 28.5 % (30.3-42.9); Hemoglobin 9.9 gm/dl (10.1-14.3); Mean Corpuscular HGB Conc 35 % (30-34); Mean Corpuscular Volume 95 fl (79-97); Platelet Count 582 K/mm3 (140-440); Red Cell Distribution Width 19.8 % (13.2-15.2)
[2019-04-20 19:22] LABS: BUN/Creatinine Ratio 45; Blood Urea Nitrogen 9 mg/dL (7-17); Calcium 9.4 mg/dL (8.4-10.2); Hemolysis Index 71
[2019-04-20 20:04] LABS: Basophils % (Manual) 0 % (0.0-1.8); Eosinophils % (Manual) 0 % (0.0-4.3); Total Cells Counted 100
[2019-04-20 20:06] LABS: Sickle Cells 2+; Target Cells 2+
[2019-04-20 20:07] LABS: Large Platelets Few; Platelet Estimate Consistent w Auto
--- NOTE | 2019-04-20 20:19 | Emergency Department Report ---
ED General Adult HPI - General Chief complaint: Sickle Cell Crisis Stated complaint: SICKLE CELL CRISIS Time Seen by Provider: 04/20/19 20:10 Source: patient Mode of arrival: Wheelchair Limitations: No Limitations - History of Present Illness Initial comments: Patient is a 23-year-old female presents to emergency room with complaints of sickle cell crisis pain. Patient is complaining of bilateral lower extremity and chest pain. Patient states her chest pain is worse with palpation and better with rest. Patient states her leg pain is better with rest and worse with movement and palpation. Patient denies shortness of breath. -: Sudden Location: chest, lower extremity Severity scale (0 -10): 10 Consistency: constant Improves with: rest Worsens with: movement Associated Symptoms: chest pain. denies: confusion, cough, diaphoresis, fever/chills, headaches, loss of appetite, malaise, nausea/vomiting, rash, seizure, shortness of breath, syncope, weakness Treatments Prior to Arrival: NSAID - Related Data Home Medications Medication Instructions Recorded Confirmed Last Taken Folic Acid [Folvite] 1 mg PO DAILY 02/11/19 02/11/19 Unknown Hydroxyurea [Droxia] 1,800 mg PO DAILY 02/11/19 02/11/19 Unknown Previous Rx's Medication Instructions Recorded Last Taken Type ALBUTEROL Inhaler (OR & NICU) 2 puff IH QID PRN #1 inhalation 08/07/18 Unknown Rx [ProAir HFA Inhaler] Oxycodone HCl/Acetaminophen 1 each PO Q6HR PRN #14 tablet 02/10/19 Unknown Rx [Percocet 7.5/325 mg] traMADol [Ultram 50 MG tab] 50 mg PO Q6HR PRN #12 tablet 02/10/19 Unknown Rx Allergies Allergy/AdvReac Type Severity Reaction Status Date / Time hydromorphone HCl Allergy Shortness Verified 04/20/19 17:20 [From Dilaudid] of Breath morphine Allergy Shortness Verified 04/20/19 17:20 of Breath ED Review of Systems ROS: Stated complaint: SICKLE CELL CRISIS Other details as noted in HPI Constitutional: denies: chills, fever Eyes: denies: eye pain, eye discharge, vision change ENT: denies: ear pain, throat pain Respiratory: denies: cough, shortness of breath, wheezing Cardiovascular: chest pain. denies: palpitations Endocrine: no symptoms reported Gastrointestinal: denies: abdominal pain, nausea, diarrhea Genitourinary: denies: urgency, dysuria, discharge Musculoskeletal: denies: back pain, joint swelling, arthralgia Skin: denies: rash, lesions Neurological: denies: headache, weakness, paresthesias Psychiatric: denies: anxiety, depression Hematological/Lymphatic: denies: easy bleeding, easy bruising ED Past Medical Hx - Past Medical History Previous Medical History?: Yes Hx Congestive Heart Failure: No Hx Diabetes: No Hx Sickle Cell Disease: Yes (Type SS) Hx Asthma: Yes Hx COPD: No Additional medical history: Blood transfusions - Surgical History Past Surgical History?: Yes Hx Cholecystectomy: Yes Additional Surgical History: Adenoidectomy - Family History Family history: no significant - Social History Smoking Status: Never Smoker Substance Use Type: Marijuana - Medications Home Medications: Home Medications Medication Instructions Recorded Confirmed Last Taken Type ALBUTEROL Inhaler (OR & NICU) 2 puff IH QID PRN #1 inhalation 08/07/18 02/08/19 Unknown Rx [ProAir HFA Inhaler] Oxycodone HCl/Acetaminophen 1 each PO Q6HR PRN #14 tablet 02/10/19 Unknown Rx [Percocet 7.5/325 mg] traMADol [Ultram 50 MG tab] 50 mg PO Q6HR PRN #12 tablet 02/10/19 Unknown Rx Folic Acid [Folvite] 1 mg PO DAILY 02/11/19 02/11/19 Unknown History Hydroxyurea [Droxia] 1,800 mg PO DAILY 02/11/19 02/11/19 Unknown History ED Physical Exam - General Limitations: No Limitations General appearance: alert, in no apparent distress - Head Head exam: Present: atraumatic, normocephalic - Eye Eye exam: Present: normal appearance - ENT ENT exam: Present: mucous membranes moist - Neck Neck exam: Present: normal inspection - Respiratory Respiratory exam: Present: normal lung sounds bilaterally. Absent: respiratory distress - Cardiovascular Cardiovascular Exam: Present: regular rate, normal rhythm. Absent: systolic murmur, diastolic murmur, rubs, gallop - GI/Abdominal GI/Abdominal exam: Present: soft, normal bowel sounds - Extremities Exam Extremities exam: Present: normal inspection - Back Exam Back exam: Present: normal inspection - Neurological Exam Neurological exam: Present: alert, oriented X3 - Psychiatric Psychiatric exam: Present: normal affect, normal mood - Skin Skin exam: Present: warm, dry, intact, normal color. Absent: rash ED Course Vital Signs 04/20/19 04/20/19 04/20/19 17:26 20:02 20:15 Temperature 97.6 F Pulse Rate 74 75 75 Respiratory 18 28 H 16 Rate Blood Pressure 100/67 144/71 144/71 O2 Sat by Pulse 100 99 Oximetry 04/20/19 20:20 Temperature Pulse Rate Respiratory 22 Rate Blood Pressure O2 Sat by Pulse Oximetry - Reevaluation(s) Reevaluation #1: Patient states she is still having pain. Patient placed on oxygen. Patient was given fluids. I discussed all results with patient. I discussed plan of care and admission patient. Patient agrees with plan of care and admission. I will consult with the patient's primary care. 04/20/19 21:04 Reevaluation #2: Patient is still complaining of pain. Patient was given another dose of fentanyl. 04/20/19 23:01 - Consultations Consultation #1: Patient's primary care page. 04/20/19 22:58 Discussed case with patient's primary care. Patient will be admitted to Dr. Rust. Dr. rust wants the patient to have prophylactic antibiotics due to elevated WBC and admitted to telemetry floor. Bridge orders placed 04/20/19 23:06 ED Medical Decision Making - Lab Data Result diagrams: 04/20/19 18:48 04/20/19 18:48 - EKG Data -: EKG Interpreted by Ia EKG shows normal: sinus rhythm, axis, intervals, QRS complexes, ST-T waves Rate: normal - Radiology Data Radiology results: report reviewed, image reviewed - Medical Decision Making Patient is a 23-year-old female presents with bilateral lower extremity pain and chest pain. Patient's pain secondary to a sickle cell crisis. Patient given fluids, but no elbow bedroom and Toradol and placed on oxygen. Patient's pain improved slightly. Patient's reticulocyte count elevated. Patient's labs consistent with sickle cell anemia. Patient's chemistry unremarkable. Patient admitted to the patient's primary care. - Differential Diagnosis leg pain. Sickle cell crisis. Acute chest syndrome. Chest pain. Critical Care Time: Yes Critical care attestation.: If time is entered above; I have spent that time in minutes in the direct care of this critically ill patient, excluding procedure time. 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
[2019-04-20] MEDS ORDERED: TORADOL IV ONE (20:28)
[2019-04-20] MEDS ORDERED: NACL 0.9% 1000 ML 1,000 ML IV ONE (20:28)
[2019-04-20] MEDS ORDERED: BENADRYL IV ONE (20:28)
[2019-04-20] MEDS ORDERED: SUBLIMAZE IV ONE ×2 (20:28→23:01)
[2019-04-20] MEDS ORDERED: ASPIRIN PO ONE (21:59)
[2019-04-20] MEDS ORDERED: SUBLIMAZE ONE (22:43)
[2019-04-20] MEDS ORDERED: MAXIPIME/NS 2 GM/100 ML 2 GM/100 ML BAG IV ONE (22:59)
--- NOTE | 2019-04-20 23:18 | XRay Report ---
CHEST 1 VIEW INDICATION / CLINICAL INFORMATION: chest pain. COMPARISON: 02/08/2019 chest FINDINGS: Low lung volumes. Heart size is normal allowing for low lung volume and AP technique. No pulmonary co nsolidation. No pneumothorax. IMPRESSION: No acute abnormality or significant change. Signer Name: Jaison Kebede MD Signed: 04/20/2019 11:13 PM Workstation Name: [id number]
[2019-04-21] MEDS ORDERED: ZOFRAN IV PRN (01:59)
[2019-04-21] MEDS: TORADOL IV PRN ×4 (04:09→23:40)
[2019-04-21 04:49] LABS: Bilirubin,Urine NEG (Negative); Blood,Urine NEG (Negative); Color,Urine Yellow (Yellow); Mucus,Urine FEW /HPF; Protein,Urine <15 mg/dL mg/dL (Negative); Urobilinogen,Urine < 2.0 mg/dL (<2.0)
[2019-04-21] MEDS: ROXICODONE PO PRN ×3 (05:27→21:03)
[2019-04-21] MEDS: PERCOCET 5/325 PO PRN ×3 (05:27→21:03)
[2019-04-21] MEDS: D5NS 0.2% 1,000 ML IV SCH ×2 (05:28→17:49)
[2019-04-21 05:49] LABS: Basophils # (Auto) 0.2 K/mm3 (0.0-0.1); Eosinophils # (Auto) 0.1 K/mm3 (0.0-0.4); Eosinophils % (Auto) 0.8 % (0.0-4.3); Hematocrit 24.9 % (30.3-42.9); Lymphocytes # (Auto) 1.8 K/mm3 (1.2-5.4); Lymphocytes % (Auto) 11.2 % (13.4-35.0); Mean Corpuscular HGB Conc 36 % (30-34); Mean Corpuscular Volume 95 fl (79-97); Monocytes % (Auto) 12.1 % (0.0-7.3); Platelet Count 512 K/mm3 (140-440); Red Blood Count 2.61 M/mm3 (3.65-5.03); Red Cell Distribution Width 18.6 % (13.2-15.2)
[2019-04-21 06:08] LABS: Alanine Aminotransferase 25 units/L (7-56); Albumin 4.5 g/dL (3.9-5); Blood Urea Nitrogen 6 mg/dL (7-17); Calcium 9.5 mg/dL (8.4-10.2); Hemolysis Index 8
[2019-04-21 06:17] LABS: BUN/Creatinine Ratio 30
--- NOTE | 2019-04-21 15:31 | History and Physical Report ---
History of Present Illness Date of examination: 04/21/19 Date of admission: 04/20/19 23:03 Chief complaint: Diffuse joint pain History of present illness: patient presented to the Ed with CC of diffuse joint pain, treated with hydration, pain control, and admitted for sxs control, and management.She will continue to get hydrated, and given pain control. WBC was high, cultures pending results, IV ABX in progress. Past History Social history: no significant social history, lives with family Medications and Allergies Allergies Allergy/AdvReac Type Severity Reaction Status Date / Time hydromorphone HCl Allergy Shortness Verified 04/20/19 17:20 [From Dilaudid] of Breath morphine Allergy Shortness Verified 04/20/19 17:20 of Breath Home Medications Medication Instructions Recorded Confirmed Last Taken Type ALBUTEROL Inhaler (OR & NICU) 2 puff IH QID PRN #1 inhalation 08/07/18 04/21/19 Unknown Rx [ProAir HFA Inhaler] Oxycodone HCl/Acetaminophen 1 each PO Q6HR PRN #14 tablet 02/10/19 04/21/19 04/20/19 Rx [Percocet 7.5/325 mg] traMADol [Ultram 50 MG tab] 50 mg PO Q6HR PRN #12 tablet 02/10/19 04/21/19 0 04/20/19 Rx Folic Acid [Folvite] 1 mg PO DAILY 02/11/19 04/21/19 Unknown History Hydroxyurea [Droxia] 1,800 mg PO DAILY 02/11/19 02/11/19 Unknown History Active Meds: Active Medications Dextrose/Sodium Chloride (D5ns 0.2%) 1,000 mls @ 175 mls/hr IV DIRECT YASSINE Last Admin: 04/21/19 05:28 Dose: 175 mls/hr Documented by: Cefepime HCl (Maxipime/Ns 2 Gm/100 Ml) 2 gm in 100 mls @ 200 mls/hr IV Q12HR@0600,1800 YASSINE; Protocol Ketorolac Tromethamine (Toradol) 30 mg IV Q6H PRN PRN Reason: Pain, Mild (1-3) Stop: 04/26/19 01:43 Last Admin: 04/21/19 10:19 Dose: 30 mg Documented by: Ondansetron HCl (Zofran) 4 mg IV Q8H PRN PRN Reason: Nausea And Vomiting Oxycodone HCl (Roxicodone) 5 mg PO Q8H PRN PRN Reason: Pain, Moderate (4-6) Last Admin: 04/21/19 13:20 Dose: 5 mg Documented by: Oxycodone/Acetaminophen (Percocet 5/325) 1 tab PO Q8H PRN PRN Reason: Pain, Moderate (4-6) Last Admin: 04/21/19 13:19 Dose: 1 tab Documented by: Review of Systems Constitutional: fatigue, chronic pain Breasts: deferred Musculoskeletal: low back pain Exam - Constitutional Vitals: Temp Pulse Resp BP Pulse Ox 98.4 F 77 16 119/84 100 04/21/19 12:16 04/21/19 13:15 04/21/19 13:20 04/21/19 13:15 04/21/19 13:15 General appearance: Present: mild distress, well-nourished - EENT Eyes: Present: PERRL ENT: hearing intact, clear oral mucosa - Neck Neck: Present: supple, normal ROM - Respiratory Respiratory effort: normal Respiratory: bilateral: CTA - Cardiovascular Heart Sounds: Present: S1 & S2. Absent: rub, click - Extremities Extremities: pulses symmetrical, No edema Peripheral Pulses: within normal limits - Abdominal General gastrointestinal: Present: soft, non-tender, non-distended, normal bowel sounds Female genitourinary: Present: normal - Rectal Rectal Exam: deferred - Integumentary Integumentary: Present: clear, warm, dry - Musculoskeletal Musculoskeletal: gait normal, strength equal bilaterally - Psychiatric Psychiatric: appropriate mood/affect, intact judgment & insight - Neurologic Neurologic: CNII-XII intact, moves all extremities Results - Labs CBC & Chem 7: 04/21/19 05:18 04/21/19 05:18 Labs: Abnormal lab results 04/20/19 04/20/19 04/21/19 Range/Units 18:48 18:48 05:18 WBC 22.8 H 16.4 H (4.5-11.0) K/mm3 RBC 3.00 L 2.61 L (3.65-5.03) M/mm3 Hgb 9.9 L 9.0 L (10.1-14.3) gm/dl Hct 28.5 L 24.9 L (30.3-42.9) % MCH 33 H 35 H (28-32) pg MCHC 35 H 36 H (30-34) % RDW 19.8 H 18.6 H (13.2-15.2) % Plt Count 582 H 512 H (140-440) K/mm3 Lymph % (Auto) 11.2 L (13.4-35.0) % [place] % (Auto) 12.1 H (0.0-7.3) % [place] # 2.0 H (0.0-0.8) K/mm3 Baso # 0.2 H (0.0-0.1) K/mm3 Seg Neutrophils % 74.9 H (40.0-70.0) % Seg Neuts % (Manual) 90.0 H (40.0-70.0) % Lymphocytes % (Manual) 4.0 L (13.4-35.0) % Nucleated RBC % 2.0 H (0.0-0.9) % Seg Neutrophils # 12.3 H (1.8-7.7) K/mm3 Seg Neutrophils # Man 20.5 H (1.8-7.7) K/mm3 Lymphocytes # (Manual) 0.9 L (1.2-5.4) K/mm3 Monocytes # (Manual) 1.1 H (0.0-0.8) K/mm3 Percent Retic 12.34 H 11.95 H (0.78-2.58) % Carbon Dioxide 20 L (22-30) mmol/L BUN (7-17) mg/dL Creatinine < 0.2 L (0.7-1.2) mg/dL Glucose 128 H (65-100) mg/dL Total Bilirubin (0.1-1.2) mg/dL Alkaline Phosphatase (35-129) units/L 04/21/19 Range/Units 05:18 WBC (4.5-11.0) K/mm3 RBC (3.65-5.03) M/mm3 Hgb (10.1-14.3) gm/dl Hct (30.3-42.9) % MCH (28-32) pg MCHC (30-34) % RDW (13.2-15.2) % Plt Count (140-440) K/mm3 Lymph % (Auto) (13.4-35.0) % [place] % (Auto) (0.0-7.3) % [place] # (0.0-0.8) K/mm3 Baso # (0.0-0.1) K/mm3 Seg Neutrophils % (40.0-70.0) % Seg Neuts % (Manual) (40.0-70.0) % Lymphocytes % (Manual) (13.4-35.0) % Nucleated RBC % (0.0-0.9) % Seg Neutrophils # (1.8-7.7) K/mm3 Seg Neutrophils # Man (1.8-7.7) K/mm3 Lymphocytes # (Manual) (1.2-5.4) K/mm3 Monocytes # (Manual) (0.0-0.8) K/mm3 Percent Retic (0.78-2.58) % Carbon Dioxide 21 L (22-30) mmol/L BUN 6 L (7-17) mg/dL Creatinine < 0.2 L (0.7-1.2) mg/dL Glucose 130 H (65-100) mg/dL Total Bilirubin 4.60 H (0.1-1.2) mg/dL Alkaline Phosphatase 169 H (35-129) units/L Assessment and Plan - Patient Problems (1) Sickle cell anemia Current Visit: Yes Status: Acute Qualifiers: Sickle-cell associated disorders: with acute chest syndrome Qualified Code(s): D57.01 - Hb-SS disease with acute chest syndrome Plan to address problem: monitor labs. (2) Sickle cell pain crisis Current Visit: Yes Status: Acute Plan to address problem: pain control. (3) Dehydration Current Visit: Yes Status: Acute Plan to address problem: hydration
[2019-04-21] MEDS: MAXIPIME/NS 2 GM/100 ML 2 GM/100 ML BAG IV SCH (21:04)
[2019-04-21] MEDS ORDERED: MAXIPIME/NS 1 GM/100 ML 1 GM/100 ML BAG IV SCH (22:00)
[2019-04-22] MEDS: PERCOCET 5/325 PO PRN ×3 (04:31→17:45)
[2019-04-22] MEDS: ROXICODONE PO PRN ×2 (04:31→12:37)
[2019-04-22] MEDS: TORADOL IV PRN ×3 (05:54→20:22)
[2019-04-22] MEDS: D5NS 0.2% 1,000 ML IV SCH (05:55)
[2019-04-22] MEDS: MAXIPIME/NS 2 GM/100 ML 2 GM/100 ML BAG IV SCH ×2 (05:55→18:20)
[2019-04-22] MEDS: D5/0.45NS 1,000 ML IV SCH ×2 (11:58→20:22)
--- NOTE | 2019-04-22 14:37 | Progress Note ---
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 (2) Sickle cell pain crisis Current Visit: Yes Status: Acute Plan to address problem: pain control. (3) Dehydration Current Visit: Yes Status: Acute Plan to address problem: hydration Subjective Date of service: 04/22/19 Interval history: Patient seen/examined, resting in bed, labs reviewed, case d/w patient.No new issues at this time, other than the ongoing sickle pain. Objective - Constitutional Vitals: Vital Signs - 12hr 04/22/19 04/22/19 04/22/19 04:22 04:24 04:31 Temperature 99.0 F Pulse Rate 84 Pulse Rate [ Apical] Respiratory 18 20 Rate Respiratory Rate [lower back] Blood Pressure 104/57 O2 Sat by Pulse 97 Oximetry 04/22/19 04/22/19 04/22/19 04:36 05:54 08:00 Temperature Pulse Rate Pulse Rate [ 79 Apical] Respiratory 18 Rate Respiratory 20 Rate [lower back] Blood Pressure O2 Sat by Pulse 99 Oximetry 04/22/19 04/22/19 04/22/19 08:04 09:00 11:57 Temperature 98.3 F Pulse Rate 69 95 H Pulse Rate [ Apical] Respiratory 18 16 Rate Respiratory Rate [lower back] Blood Pressure 121/75 O2 Sat by Pulse 97 Oximetry 04/22/19 12:36 Temperature Pulse Rate Pulse Rate [ Apical] Respiratory 17 Rate Respiratory Rate [lower back] Blood Pressure O2 Sat by Pulse Oximetry General appearance: Present: mild distress, well-nourished - EENT Eyes: PERRL, EOM intact ENT: hearing intact, clear oral mucosa Ears: bilateral: normal - Neck Neck: supple, normal ROM - Respiratory Respiratory effort: normal Respiratory: bilateral: CTA - Breasts Breasts: deferred - Cardiovascular Rhythm: regular Heart Sounds: Present: S1 & S2. Absent: gallop, rub Extremities: pulses intact, No edema, normal color, Full ROM - Gastrointestinal General gastrointestinal: Present: soft, non-tender, non-distended, normal bowel sounds Rectal Exam: deferred - Genitourinary Female genitourinary: deferred - Integumentary Integumentary: clear, warm, dry - Musculoskeletal Musculoskeletal: 1, strength equal bilaterally - Neurologic Neurologic: moves all extremities - Psychiatric Psychiatric: memory intact, appropriate mood/affect, intact judgment & insight - Labs CBC & Chem 7: 04/21/19 05:18 04/21/19 05:18
[2019-04-22] MEDS ORDERED: PROAIR IH PRN (15:33)
[2019-04-22] MEDS ORDERED: PROVENTIL IH PRN (16:09)
[2019-04-22] MEDS: DURAGESIC TD SCH (16:53)
[2019-04-23] MEDS: D5/0.45NS 1,000 ML IV SCH ×4 (02:17→21:47)
[2019-04-23] MEDS: PERCOCET 5/325 PO PRN ×4 (02:19→21:47)
[2019-04-23] MEDS: TORADOL IV PRN ×3 (05:06→18:25)
[2019-04-23] MEDS: MAXIPIME/NS 2 GM/100 ML 2 GM/100 ML BAG IV SCH ×2 (05:43→18:25)
[2019-04-23] MEDS: FOLVITE PO SCH (09:47)
--- NOTE | 2019-04-23 21:39 | Progress Note ---
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 (2) Sickle cell pain crisis Current Visit: Yes Status: Acute Plan to address problem: pain control. (3) Dehydration Current Visit: Yes Status: Acute Plan to address problem: hydration Subjective Date of service: 04/23/19 Interval history: Patient seen/examined, resting in bed, labs reviewed, case d/w patient.No new issues at this time, other than the ongoing sickle pain. Patient seen/examined, resting in bed, labs reviewed, case d/w patient. NAD.Will continue with current management. Will start planning d/c tomorrow. Objective - Constitutional Vitals: Vital Signs - 12hr 04/23/19 04/23/19 12:49 17:09 Temperature 98.4 F 98.8 F Pulse Rate 72 85 Respiratory 16 18 Rate Blood Pressure 106/48 111/55 O2 Sat by Pulse 94 96 Oximetry General appearance: Present: mild distress, well-nourished - EENT Eyes: PERRL, EOM intact ENT: hearing intact, clear oral mucosa Ears: bilateral: normal - Neck Neck: supple, normal ROM - Respiratory Respiratory effort: normal Respiratory: bilateral: CTA - Breasts Breasts: deferred - Cardiovascular Rhythm: regular Heart Sounds: Present: S1 & S2. Absent: gallop, rub Extremities: pulses intact, No edema, normal color, Full ROM - Gastrointestinal General gastrointestinal: Present: soft, non-tender, non-distended, normal bowel sounds Rectal Exam: deferred - Genitourinary Female genitourinary: deferred - Integumentary Integumentary: clear, warm, dry - Musculoskeletal Musculoskeletal: 1, strength equal bilaterally - Neurologic Neurologic: moves all extremities - Psychiatric Psychiatric: memory intact, appropriate mood/affect, intact judgment & insight - Labs CBC & Chem 7: 04/21/19 05:18 04/21/19 05:18
[2019-04-24 04:47] LABS: Basophils # (Auto) 0.1 K/mm3 (0.0-0.1); Basophils % (Auto) 0.8 % (0.0-1.8); Eosinophils # (Auto) 0.6 K/mm3 (0.0-0.4); Eosinophils % (Auto) 5.6 % (0.0-4.3); Lymphocytes # (Auto) 2.6 K/mm3 (1.2-5.4); Lymphocytes % (Auto) 23.9 % (13.4-35.0); Mean Corpuscular HGB Conc 36 % (30-34); Mean Corpuscular Volume 94 fl (79-97); Monocytes # (Auto) 1.3 K/mm3 (0.0-0.8); Monocytes % (Auto) 12.1 % (0.0-7.3); Platelet Count 467 K/mm3 (140-440); Red Blood Count 2.06 M/mm3 (3.65-5.03); Red Cell Distribution Width 18.8 % (13.2-15.2)
[2019-04-24 04:53] LABS: Hematocrit 19.3 % (30.3-42.9)
[2019-04-24 05:09] LABS: BUN/Creatinine Ratio 60; Blood Urea Nitrogen 12 mg/dL (7-17); Calcium 8.9 mg/dL (8.4-10.2); Hemolysis Index 7
[2019-04-24] MEDS: MAXIPIME/NS 2 GM/100 ML 2 GM/100 ML BAG IV SCH ×2 (05:22→17:50)
[2019-04-24] MEDS: TORADOL IV PRN ×2 (05:22→18:44)
[2019-04-24] MEDS: D5/0.45NS 1,000 ML IV SCH ×2 (05:37→13:33)
[2019-04-24 09:38] LABS: Hemoglobin 6.7 gm/dl (10.1-14.3)
[2019-04-24] MEDS ORDERED: NACL 0.9% 500 ML 500 ML IV NR (09:51)
[2019-04-24] MEDS: FOLVITE PO SCH (09:54)
[2019-04-24] MEDS: PERCOCET 5/325 PO PRN ×3 (09:54→23:40)
[2019-04-24] MEDS ORDERED: CHLORASEPTIC MM PRN (09:55)
--- NOTE | 2019-04-24 09:55 | Progress Note ---
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 (2) Sickle cell pain crisis Current Visit: Yes Status: Acute Plan to address problem: pain control. (3) Dehydration Current Visit: Yes Status: Acute Plan to address problem: hydration Subjective Date of service: 04/24/19 Interval history: Patient seen/examined, resting in bed, labs reviewed, case d/w patient.No new issues at this time, other than the ongoing sickle pain. Patient seen/examined, resting in bed, labs reviewed, case d/w patient. NAD.Will continue with current management. Will start planning d/c tomorrow. Patient seen/examined, resting in bed, c/o feels fatigue.sore throat.Will give blood, and throat spay. Objective - Constitutional Vitals: Vital Signs - 12hr 04/23/19 04/24/19 04/24/19 22:47 04:00 05:00 Temperature 99.7 F H Pulse Rate 89 Respiratory 18 20 Rate Respiratory 18 Rate [lower back] Blood Pressure 114/54 [Right] O2 Sat by Pulse 97 Oximetry 04/24/19 04/24/19 05:22 05:52 Temperature Pulse Rate Respiratory 19 18 Rate Respiratory Rate [lower back] Blood Pressure [Right] O2 Sat by Pulse Oximetry General appearance: Present: mild distress, well-nourished - EENT Eyes: PERRL, EOM intact ENT: hearing intact, clear oral mucosa Ears: bilateral: normal - Neck Neck: supple, normal ROM - Respiratory Respiratory effort: normal Respiratory: bilateral: CTA - Breasts Breasts: deferred - Cardiovascular Rhythm: regular Heart Sounds: Present: S1 & S2. Absent: gallop, rub Extremities: pulses intact, No edema, normal color, Full ROM - Gastrointestinal General gastrointestinal: Present: soft, non-tender, non-distended, normal bowel sounds Rectal Exam: deferred - Genitourinary Female genitourinary: deferred - Integumentary Integumentary: clear, warm, dry - Musculoskeletal Musculoskeletal: 1, strength equal bilaterally - Neurologic Neurologic: moves all extremities - Psychiatric Psychiatric: memory intact, appropriate mood/affect, intact judgment & insight - Labs CBC & Chem 7: 04/24/19 09:02 04/24/19 04:29 Labs: Abnormal lab results 04/24/19 04/24/19 04/24/19 Range/Units 04:29 04:29 09:02 WBC 11.1 H (4.5-11.0) K/mm3 RBC 2.06 L (3.65-5.03) M/mm3 Hgb 7.0 L 6.7 L (10.1-14.3) gm/dl Hct 19.3 L* (30.3-42.9) % MCH 34 H (28-32) pg MCHC 36 H (30-34) % RDW 18.8 H (13.2-15.2) % Plt Count 467 H (140-440) K/mm3 [place] % (Auto) 12.1 H (0.0-7.3) % Eos % (Auto) 5.6 H (0.0-4.3) % [place] # 1.3 H (0.0-0.8) K/mm3 Eos # 0.6 H (0.0-0.4) K/mm3 Creatinine 0.2 L (0.7-1.2) mg/dL Glucose 102 H (65-100) mg/dL
[2019-04-24] MEDS ORDERED: TYLENOL PO PRN (18:19)
[2019-04-25] MEDS: MAXIPIME/NS 2 GM/100 ML 2 GM/100 ML BAG IV SCH ×3 (02:03→18:11)
[2019-04-25] MEDS: D5/0.45NS 1,000 ML IV SCH ×2 (02:04→11:05)
[2019-04-25] MEDS: TORADOL IV PRN ×3 (04:58→22:13)
[2019-04-25] MEDS: FOLVITE PO SCH (09:22)
[2019-04-25] MEDS: PERCOCET 5/325 PO PRN (13:13)
[2019-04-25] MEDS: DURAGESIC TD SCH (18:28)
--- NOTE | 2019-04-25 19:26 | Progress Note ---
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 (2) Sickle cell pain crisis Current Visit: Yes Status: Acute Plan to address problem: pain control. (3) Dehydration Current Visit: Yes Status: Acute Plan to address problem: hydration Subjective Date of service: 04/25/19 Interval history: Patient seen/examined, resting in bed, labs reviewed, case d/w patient.No new issues at this time, other than the ongoing sickle pain. Patient seen/examined, resting in bed, labs reviewed, case d/w patient. NAD.Will continue with current management. Will start planning d/c tomorrow. Patient seen/examined, resting in bed, c/o feels fatigue.sore throat.Will give blood, and throat spay. Patient seen/examined, resting in bed, NAD, labs reviewed, case d/w her.no new issues at this time. Will recheck labs tomorrow Objective - Constitutional Vitals: Vital Signs - 12hr 04/25/19 11:42 Temperature 99.2 F Pulse Rate 77 Respiratory 18 Rate Blood Pressure 125/78 O2 Sat by Pulse 96 Oximetry General appearance: Present: no acute distress, mild distress, well-nourished - EENT Eyes: PERRL, EOM intact ENT: hearing intact, clear oral mucosa Ears: bilateral: normal - Neck Neck: supple, normal ROM - Respiratory Respiratory effort: normal Respiratory: bilateral: CTA - Breasts Breasts: deferred - Cardiovascular Rhythm: regular Heart Sounds: Present: S1 & S2. Absent: gallop, rub Extremities: pulses intact, No edema, normal color, Full ROM - Gastrointestinal General gastrointestinal: Present: soft, non-tender, non-distended, normal bowel sounds Rectal Exam: deferred - Genitourinary Female genitourinary: deferred, normal - Integumentary Integumentary: clear, warm, dry - Musculoskeletal Musculoskeletal: 1, strength equal bilaterally - Neurologic Neurologic: moves all extremities - Psychiatric Psychiatric: memory intact, appropriate mood/affect, intact judgment & insight - Labs CBC & Chem 7: 04/24/19 09:02 04/24/19 04:29 Labs: Abnormal lab results 04/24/19 Range/Units 11:05 Crossmatch See Detail
[2019-04-25] MEDS ORDERED: NACL 0.9% 500 ML 500 ML IV SCH (19:27)
[2019-04-25 21:05] LABS: Hemoglobin 10.4 gm/dl (10.1-14.3)
[2019-04-26] MEDS: D5/0.45NS 1,000 ML IV SCH ×4 (00:27→23:33)
[2019-04-26] MEDS: MAXIPIME/NS 2 GM/100 ML 2 GM/100 ML BAG IV SCH ×2 (05:35→20:43)
[2019-04-26] MEDS: PERCOCET 5/325 PO PRN ×3 (08:54→22:08)
[2019-04-26] MEDS: FOLVITE PO SCH (11:52)
--- NOTE | 2019-04-26 17:19 | Progress Note ---
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 (2) Sickle cell pain crisis Current Visit: Yes Status: Acute Plan to address problem: pain control. (3) Dehydration Current Visit: Yes Status: Acute Plan to address problem: hydration (4) SIRS without infection or organ dysfunction Current Visit: Yes Status: Acute Plan to address problem: continue with supportive care Subjective Date of service: 04/26/19 Interval history: Patient seen/examined, resting in bed, labs reviewed, case d/w patient.No new issues at this time, other than the ongoing sickle pain. Patient seen/examined, resting in bed, labs reviewed, case d/w patient. NAD.Will continue with current management. Will start planning d/c tomorrow. Patient seen/examined, resting in bed, c/o feels fatigue.sore throat.Will give blood, and throat spay. Patient seen/examined, resting in bed, NAD, labs reviewed, case d/w her.no new issues at this time. Will recheck labs tomorrow Patient resting in bed, labs reviewed, post blood transfusion, Will get d/c plans for tomorrow. Objective - Constitutional Vitals: Vital Signs - 12hr 04/26/19 04/26/19 05:22 11:29 Temperature 98.4 F 98.8 F Pulse Rate 74 65 Respiratory 18 18 Rate Blood Pressure 117/71 104/64 O2 Sat by Pulse 97 97 Oximetry General appearance: Present: mild distress, well-nourished - EENT Eyes: PERRL, EOM intact ENT: hearing intact, clear oral mucosa Ears: bilateral: normal - Neck Neck: supple, normal ROM - Respiratory Respiratory effort: normal Respiratory: bilateral: CTA - Breasts Breasts: deferred - Cardiovascular Rhythm: regular Heart Sounds: Present: S1 & S2. Absent: gallop, rub Extremities: pulses intact, No edema, normal color, Full ROM - Gastrointestinal General gastrointestinal: Present: soft, non-tender, non-distended, normal bowel sounds Rectal Exam: deferred - Genitourinary Female genitourinary: deferred - Integumentary Integumentary: clear, warm, dry - Musculoskeletal Musculoskeletal: 1, strength equal bilaterally - Neurologic Neurologic: moves all extremities - Psychiatric Psychiatric: memory intact, appropriate mood/affect, intact judgment & insight - Labs CBC & Chem 7: 04/25/19 20:45 04/24/19 04:29 Labs: Abnormal lab results 04/24/19 04/25/19 Range/Units 11:05 20:45 Hct 29.0 L D (30.3-42.9) % Crossmatch See Detail
[2019-04-27] MEDS: PERCOCET 5/325 PO PRN ×3 (03:59→19:02)
[2019-04-27] MEDS: D5/0.45NS 1,000 ML IV SCH ×3 (04:05→22:13)
[2019-04-27] MEDS: MAXIPIME/NS 2 GM/100 ML 2 GM/100 ML BAG IV SCH (05:33)
[2019-04-27] MEDS: FOLVITE PO SCH (09:48)
[2019-04-27] MEDS ORDERED: CHLORASEPTIC MM PRN (20:16)
--- NOTE | 2019-04-27 20:16 | Progress Note ---
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 (2) Sickle cell pain crisis Current Visit: Yes Status: Acute Plan to address problem: pain control. (3) Dehydration Current Visit: Yes Status: Acute Plan to address problem: hydration (4) SIRS without infection or organ dysfunction Current Visit: Yes Status: Acute Plan to address problem: continue with supportive care (5) Neck pain Current Visit: Yes Status: Acute Plan to address problem: xray. Subjective Date of service: 04/27/19 Principal diagnosis: Acute pain crisis. Interval history: Patient seen/examined, resting in bed, labs reviewed, case d/w patient.No new issues at this time, other than the ongoing sickle pain. Patient seen/examined, resting in bed, labs reviewed, case d/w patient. NAD.Will continue with current management. Will start planning d/c tomorrow. Patient seen/examined, resting in bed, c/o feels fatigue.sore throat.Will give blood, and throat spay. Patient seen/examined, resting in bed, NAD, labs reviewed, case d/w her.no new issues at this time. Will recheck labs tomorrow Patient resting in bed, labs reviewed, post blood transfusion, Will get d/c plans for tomorrow. Patient seen/examined, resting in bed, c/p difficulty swallowing, and pain in the cervical soft tissue. will get a stat xray, and if negative, will d/c home. Objective - Constitutional Vitals: Vital Signs - 12hr 04/27/19 04/27/19 12:12 17:52 Temperature 98.6 F 99.1 F Pulse Rate 65 78 Respiratory 18 18 Rate Blood Pressure 108/60 119/66 O2 Sat by Pulse 96 98 Oximetry General appearance: Present: mild distress, well-nourished - EENT Eyes: PERRL, EOM intact ENT: hearing intact, clear oral mucosa Ears: bilateral: normal - Neck Neck: supple, normal ROM - Respiratory Respiratory effort: normal Respiratory: bilateral: CTA - Breasts Breasts: deferred - Cardiovascular Rhythm: regular Heart Sounds: Present: S1 & S2. Absent: gallop, rub Extremities: pulses intact, No edema, normal color, Full ROM - Gastrointestinal General gastrointestinal: Present: soft, non-tender, non-distended, normal bowel sounds Rectal Exam: deferred - Genitourinary Female genitourinary: deferred - Integumentary Integumentary: clear, warm, dry - Musculoskeletal Musculoskeletal: strength equal bilaterally, other (right neck/shoulder pain.) - Neurologic Neurologic: moves all extremities - Psychiatric Psychiatric: memory intact, appropriate mood/affect, intact judgment & insight - Labs CBC & Chem 7: 04/25/19 20:45 04/24/19 04:29 Labs: Abnormal lab results 04/24/19 Range/Units 11:05 Crossmatch See Detail Medications & Allergies - Medications Allergies/Adverse Reactions: Allergies hydromorphone HCl [From Dilaudid] Allergy (Verified 04/20/19 17:20) Shortness of Breath morphine Allergy (Verified 04/20/19 17:20) Shortness of Breath Home Medications: Home Medications Medication Instructions Recorded Confirmed Last Taken Type ALBUTEROL Inhaler (OR & NICU) 2 puff IH QID PRN #1 inhalation 08/07/18 04/21/19 Unknown Rx [ProAir HFA Inhaler] Oxycodone HCl/Acetaminophen 1 each PO Q6HR PRN #14 tablet 02/10/19 04/21/19 04/20/19 Rx [Percocet 7.5/325 mg] traMADol [Ultram 50 MG tab] 50 mg PO Q6HR PRN #12 tablet 02/10/19 04/21/19 04/20/19 Rx Folic Acid [Folvite] 1 mg PO DAILY 02/11/19 04/21/19 Unknown History Active Medications: Generic Name Dose Route Start Last Admin Trade Name Freq PRN Reason Stop Dose Admin Acetaminophen 650 mg 04/24/19 18:19 04/24/19 18:43 Tylenol PO 650 mg Q6H PRN Administration Pain, Mild (1-3) Albuterol 2.5 mg 04/22/19 16:09 Proventil IH Q4H PRN Shortness Of Breath Fentanyl 12 mcg 04/22/19 17:00 04/25/19 18:28 Duragesic TD 12 mcg Q3D YASSINE Administration Folic Acid 1 mg 04/23/19 10:00 04/27/19 09:48 Folvite PO 1 mg DAILY YASSINE Administration Dextrose/Sodium Chloride 1,000 mls @ 175 mls/hr 04/22/19 12:00 04/27/19 14:38 D5/0.45ns IV 175 mls/hr DIRECT YASSINE Administration Ondansetron HCl 4 mg 04/21/19 01:59 Zofran IV Q8H PRN Nausea And Vomiting Oxycodone/Acetaminophen 2 tab 04/22/19 15:31 04/27/19 19:02 Percocet 5/325 PO 2 tab Q6H PRN Administration Pain, Moderate (4-6) Phenol 1 spray 04/24/19 09:55 Chloraseptic MM PRN PRN Sore Throat
--- NOTE | 2019-04-27 20:57 | XRay Report ---
AP AND LATERAL VIEWS SOFT TISSUE NECK INDICATION: Acute pain. COMPARISON: No relevant prior imaging study available. FINDINGS: There is no retropharyngeal/prevertebral soft tissue swelling. Epiglottis is normal in size. Cervical airway is unremarkable. No abnormality is seen in the cervical spine. IMPRESSION: 1. No acute findings. Signer Name: Isak Coon MD Signed: 04/27/2019 8:53 PM Workstation Name: [id number]
--- NOTE | 2019-04-27 20:59 | XRay Report ---
STERNOCLAVICULAR JOINTS, 3 VIEWS INDICATION: Acute pain. COMPARISON: No relevant prior imaging study available. FINDINGS: No fracture is seen. No sternoclavicular joint diastases or dislocation is seen. No cortical destruct ion is identified. The included upper ribs are unremarkable. IMPRESSION: 1. No acute findings. Signer Name: Isak Coon MD Signed: 04/27/2019 8:55 PM Workstation Name: [id number]
[2019-04-28] MEDS: D5/0.45NS 1,000 ML IV SCH ×2 (03:57→10:10)
[2019-04-28] MEDS: PERCOCET 5/325 PO PRN (07:57)
[2019-04-28] MEDS: FOLVITE PO SCH (10:07)
[2019-04-28 12:58] VITALS: BP 123/68
--- NOTE | 2019-04-28 13:01 | Discharge Summary ---
Providers - Providers Date of Admission: 04/24/19 09:32 Date of discharge: 04/28/19 Attending physician: OZ VALENZUELA Primary care physician: KEO WEAVER Hospitalization Reason for admission: SCD/ pain crisis. Condition: Good Hospital course: Patient presented to the ED with CC of diffuse joint pain, and admitted for sxsx control, and management. She had blood replacement, and hydration, and pain control. Sepsis was ruled out with negative cultures, but SIRS ruled in, but resolve at this time. Patient complained of right neck pain, but Xrays was NL. She is seen now, denies any problems, I will see her in the office in 10days, to re-eval the pain in the right neck. she will be D/C now. Disposition: TO HOME OR SELFCARE - Discharge Diagnoses (1) Sickle cell anemia Status: Chronic Qualifiers: Sickle-cell associated disorders: with acute chest syndrome Qualified Code(s): D57.01 - Hb-SS disease with acute chest syndrome (2) Sickle cell pain crisis Status: Resolved (3) Dehydration Status: Resolved (4) SIRS without infection or organ dysfunction Status: Resolved (5) Neck pain Status: Acute Core Measure Documentation - Palliative Care Palliative Care/ Comfort Measures: Not Applicable - Core Measures Any of the following diagnoses?: none Exam - Constitutional Vitals: Temp Pulse Resp BP Pulse Ox 98.5 F 74 18 117/65 97 04/28/19 05:45 04/28/19 05:45 04/28/19 07:57 04/28/19 05:45 04/28/19 05:45 General appearance: Present: no acute distress, well-nourished - EENT Eyes: Present: PERRL ENT: hearing intact, clear oral mucosa - Neck Neck: Present: supple, normal ROM, other (slightly less tender.) - Respiratory Respiratory effort: normal Respiratory: bilateral: CTA - Cardiovascular Heart Sounds: Present: S1 & S2. Absent: rub, click - Extremities Extremities: pulses symmetrical, No edema Peripheral Pulses: within normal limits - Abdominal General gastrointestinal: Present: soft, non-tender, non-distended, normal bowel sounds Female genitourinary: Present: deferred - Rectal Rectal Exam: deferred - Integumentary Integumentary: Present: clear, warm, dry - Musculoskeletal Musculoskeletal: gait normal, strength equal bilaterally - Psychiatric Psychiatric: appropriate mood/affect, intact judgment & insight - Neurologic Neurologic: CNII-XII intact, moves all extremities Plan Activity: no restrictions Diet: regular Follow up with: KEO WEAVER MD [Primary Care Provider] - 3-5 Days OZ VALENZUELA DO [Staff Physician] - 7 Days
== END 2019-04-28 13:15 | disposition home or self-care (01) | DRG 812 ==
LOC: ED 17:06 → 4A 23:03 → 3A 04-22 14:06 → OBSVTOIN 04-24 09:32
PROVIDERS: ADMIT Internal Medicine Hematology & Oncology; ATTEND Internal Medicine Hematology & Oncology
PROC: 30233N1 Transfusion of Nonautologous Red Blood Cells into Peripheral Vein, Percutaneous Approach (ICD-10-PCS; principal; 2019-04-24)
DX: D57.01 Hb-SS disease with acute chest syndrome (principal); E86.0 Dehydration; R65.10 Systemic inflammatory response syndrome (SIRS) of non-infectious origin without acute organ dysfunction; M54.2 Cervicalgia; J45.909 Unspecified asthma, uncomplicated; F12.90 Cannabis use, unspecified, uncomplicated; Z88.5 Allergy status to narcotic agent; Z79.899 Other long term (current) drug therapy; Z90.49 Acquired absence of other specified parts of digestive tract
CPT/HCPCS: 36415; 36430; 70360; 71045; 71130; 80048; 80053; 81001; 84484; 84703; 85007; 85014; 85018; 85025; 85045; 85660; 86850; 86900; 86901; 86920; 87040; 87116; 93005; 93010; 94640; 96361; 96365; 96375; G0378; J0692; J1200; J1885; J3010; J7030; J7040; P9016

== ENCOUNTER 2019-07-29 09:53 | Emergency (ER) | payer MEDICAID ==
[2019-07-29] MEDS ORDERED: KETOROLAC 30 MG/1 ML INJ IV ONE (10:50)
[2019-07-29] MEDS ORDERED: SODIUM CHLORIDE 0.9% 1000 ML 1,000 ML IV ONE (10:51)
--- NOTE | 2019-07-29 11:05 | Emergency Department Report ---
ED General Adult HPI - General Chief complaint: Sickle Cell Crisis Stated complaint: SICKLE CELL CRISIS/PAIN Time Seen by Provider: 07/29/19 10:28 Source: patient Mode of arrival: Wheelchair Limitations: No Limitations - History of Present Illness Initial comments: This is a 24-year-old female with a history of sickle cell disease or presents to ED complaining lower back pain and chest pain starting yesterday. Patient states that she was home when symptoms started. Patient says [facility] with no prescriptions. Patient states the symptoms never went away and is actually getting worse. Patient denies any trauma, injuries or falls. She states her last menstrual period is 07/27/2019. Severity scale (0 -10): 10 - Related Data Home Medications Medication Instructions Recorded Confirmed Last Taken Folic Acid [Folvite] 1 mg PO DAILY 02/11/19 04/21/19 Unknown Previous Rx's Medication Instructions Recorded Last Taken Type ALBUTEROL Inhaler (OR & NICU) 2 puff IH QID PRN #1 inhalation 08/07/18 Unknown Rx [ProAir HFA Inhaler] traMADoL [Ultram 50 MG tab] 50 mg PO Q6HR PRN #12 tablet 02/10/19 04/20/19 Rx Ciprofloxacin HCl [Ciprofloxacin 500 mg PO Q12HR #14 tab 07/29/19 Unknown Rx TAB] Oxycodone HCl/Acetaminophen 1 each PO Q6HR PRN #14 tablet 07/29/19 Unknown Rx [Percocet 7.5/325 mg] methOCARBAMOL [Robaxin TAB] 500 mg PO BID #20 tab 07/29/19 Unknown Rx Allergies Allergy/AdvReac Type Severity Reaction Status Date / Time hydromorphone HCl Allergy Shortness Verified 04/20/19 17:20 [From Dilaudid] of Breath morphine Allergy Shortness Verified 04/20/19 17:20 of Breath ED Review of Systems ROS: Stated complaint: SICKLE CELL CRISIS/PAIN Other details as noted in HPI Comment: All other systems reviewed and negative ED Past Medical Hx - Past Medical History Previous Medical History?: Yes Hx Congestive Heart Failure: No Hx Diabetes: No Hx Sickle Cell Disease: Yes Hx Asthma: Yes Hx COPD: No Additional medical history: Blood transfusions - Surgical History Past Surgical History?: Yes Hx Cholecystectomy: Yes Additional Surgical History: Adenoidectomy - Social History Smoking Status: Never Smoker Substance Use Type: Marijuana - Medications Home Medications: Home Medications Medication Instructions Recorded Confirmed Last Taken Type ALBUTEROL Inhaler (OR & NICU) 2 puff IH QID PRN #1 inhalation 08/07/18 04/21/19 Unknown Rx [ProAir HFA Inhaler] traMADoL [Ultram 50 MG tab] 50 mg PO Q6HR PRN #12 tablet 02/10/19 04/21/19 04/20/19 Rx Folic Acid [Folvite] 1 mg PO DAILY 02/11/19 04/21/19 Unknown History Ciprofloxacin HCl [Ciprofloxacin 500 mg PO Q12HR #14 tab 07/29/19 Unknown Rx TAB] Oxycodone HCl/Acetaminophen 1 each PO Q6HR PRN #14 tablet 07/29/19 Unknown Rx [Percocet 7.5/325 mg] methOCARBAMOL [Robaxin TAB] 500 mg PO BID #20 tab 07/29/19 Unknown Rx ED Physical Exam - General Limitations: No Limitations General appearance: alert, in no apparent distress - Head Head exam: Present: atraumatic, normocephalic - Eye Eye exam: Present: normal appearance - ENT ENT exam: Present: mucous membranes moist - Neck Neck exam: Present: normal inspection - Respiratory Respiratory exam: Present: normal lung sounds bilaterally. Absent: respiratory distress - Cardiovascular Cardiovascular Exam: Present: regular rate, normal rhythm. Absent: systolic murmur, diastolic murmur, rubs, gallop - GI/Abdominal GI/Abdominal exam: Present: soft, normal bowel sounds - Extremities Exam Extremities exam: Present: normal inspection - Back Exam Back exam: Present: normal inspection, full ROM. Absent: tenderness, CVA tenderness (R), CVA tenderness (L) - Neurological Exam Neurological exam: Present: alert, oriented X3 - Psychiatric Psychiatric exam: Present: normal affect, normal mood - Skin Skin exam: Present: warm, dry, intact, normal color. Absent: rash ED Course Vital Signs 07/29/19 07/29/19 07/29/19 09:58 11:01 13:01 Temperature 99.2 F Pulse Rate 102 H 89 84 Respiratory 20 16 16 Rate Blood Pressure 126/84 131/62 119/69 [Right] O2 Sat by Pulse 97 95 96 Oximetry ED Medical Decision Making - Lab Data Result diagrams: 07/29/19 10:51 Laboratory Last Values WBC 16.4 K/mm3 (4.5-11.0) H 07/29/19 10:51 RBC 2.80 M/mm3 (3.65-5.03) L 07/29/19 10:51 Hgb 9.5 gm/dl (10.1-14.3) L 07/29/19 10:51 Hct 26.6 % (30.3-42.9) L 07/29/19 10:51 MCV 95 fl (79-97) 07/29/19 10:51 MCH 34 pg (28-32) H 07/29/19 10:51 MCHC 36 % (30-34) H 07/29/19 10:51 RDW 18.9 % (13.2-15.2) H 07/29/19 10:51 Plt Count 568 K/mm3 (140-440) H 07/29/19 10:51 Lymph % (Auto) Road Machine Operator 07/29/19 10:51 Mathews % (Auto) Road Machine Operator 07/29/19 10:51 Eos % (Auto) Road Machine Operator 07/29/19 10:51 Baso % (Auto) Road Machine Operator 07/29/19 10:51 Lymph # Road Machine Operator 07/29/19 10:51 Mathews # Road Machine Operator 07/29/19 10:51 Eos # Road Machine Operator 07/29/19 10:51 Baso # Road Machine Operator 07/29/19 10:51 Add Manual Diff Complete 07/29/19 10:51 Total Counted 100 07/29/19 10:51 Seg Neutrophils % Road Machine Operator 07/29/19 10:51 Seg Neuts % (Manual) 76.0 % (40.0-70.0) H 07/29/19 10:51 Band Neutrophils % 0 % 07/29/19 10:51 Lymphocytes % (Manual) 8.0 % (13.4-35.0) L 07/29/19 10:51 Reactive Lymphs % (Man) 0 % 07/29/19 10:51 Monocytes % (Manual) 16.0 % (0.0-7.3) H 07/29/19 10:51 Eosinophils % (Manual) 0 % (0.0-4.3) 07/29/19 10:51 Basophils % (Manual) 0 % (0.0-1.8) 07/29/19 10:51 Metamyelocytes % 0 % 07/29/19 10:51 Myelocytes % 0 % 07/29/19 10:51 Promyelocytes % 0 % 07/29/19 10:51 Blast Cells % 0 % 07/29/19 10:51 Nucleated RBC % 6.0 % (0.0-0.9) H 07/29/19 10:51 Seg Neutrophils # Road Machine Operator 07/29/19 10:51 Seg Neutrophils # Man 12.5 K/mm3 (1.8-7.7) H 07/29/19 10:51 Band Neutrophils # 0.0 K/mm3 07/29/19 10:51 Lymphocytes # (Manual) 1.3 K/mm3 (1.2-5.4) 07/29/19 10:51 Abs React Lymphs (Man) 0.0 K/mm3 07/29/19 10:51 Monocytes # (Manual) 2.6 K/mm3 (0.0-0.8) H 07/29/19 10:51 Eosinophils # (Manual) 0.0 K/mm3 (0.0-0.4) 07/29/19 10:51 Basophils # (Manual) 0.0 K/mm3 (0.0-0.1) 07/29/19 10:51 Metamyelocytes # 0.0 K/mm3 07/29/19 10:51 Myelocytes # 0.0 K/mm3 07/29/19 10:51 Promyelocytes # 0.0 K/mm3 07/29/19 10:51 Blast Cells # 0.0 K/mm3 07/29/19 10:51 WBC Morphology Not Reportable 07/29/19 10:51 Hypersegmented Neuts Not Reportable 07/29/19 10:51 Hyposegmented Neuts Not Reportable 07/29/19 10:51 Hypogranular Neuts Not Reportable 07/29/19 10:51 Smudge Cells Not Reportable 07/29/19 10:51 Toxic Granulation Not Reportable 07/29/19 10:51 Toxic Vacuolation Not Reportable 07/29/19 10:51 Dohle Bodies Not Reportable 07/29/19 10:51 Pelger-Huet Anomaly Not Reportable 07/29/19 10:51 Earle Rods Not Reportable 07/29/19 10:51 Platelet Estimate Consistent w auto 07/29/19 10:51 Clumped Platelets Not Reportable 07/29/19 10:51 Plt Clumps, EDTA Not Reportable 07/29/19 10:51 Large Platelets Few 07/29/19 10:51 Giant Platelets Not Reportable 07/29/19 10:51 Platelet Satelliting Not Reportable 07/29/19 10:51 Plt Morphology Comment Not Reportable 07/29/19 10:51 RBC Morphology Not Reportable 07/29/19 10:51 Dimorphic RBCs Not Reportable 07/29/19 10:51 Polychromasia 1+ 07/29/19 10:51 Hypochromasia Not Reportable 07/29/19 10:51 Poikilocytosis Not Reportable 07/29/19 10:51 Anisocytosis Not Reportable 07/29/19 10:51 Microcytosis Not Reportable 07/29/19 10:51 Macrocytosis Not Reportable 07/29/19 10:51 Spherocytes Not Reportable 07/29/19 10:51 Pappenheimer Bodies Not Reportable 07/29/19 10:51 Sickle Cells 2+ 07/29/19 10:51 Target Cells 2+ 07/29/19 10:51 Tear Drop Cells Not Reportable 07/29/19 10:51 Ovalocytes Not Reportable 07/29/19 10:51 Helmet Cells Not Reportable 07/29/19 10:51 Aparicio-Perth Bodies Not Reportable 07/29/19 10:51 Poneto Rings Not Reportable 07/29/19 10:51 Klarissa Cells Not Reportable 07/29/19 10:51 Bite Cells Not Reportable 07/29/19 10:51 Crenated Cell Not Reportable 07/29/19 10:51 Elliptocytes Not Reportable 07/29/19 10:51 Acanthocytes (Spur) Not Reportable 07/29/19 10:51 Rouleaux Not Reportable 07/29/19 10:51 Hemoglobin C Crystals Not Reportable 07/29/19 10:51 Schistocytes Not Reportable 07/29/19 10:51 Malaria parasites Not Reportable 07/29/19 10:51 Percent Retic 12.93 % (0.78-2.58) H 07/29/19 10:51 Armand Bodies Not Reportable 07/29/19 10:51 Hem Pathologist Commnt No 07/29/19 10:51 Urine Color Cony (Yellow) 07/29/19 12:09 Urine Turbidity Clear (Clear) 07/29/19 12:09 Urine pH 6.0 (5.0-7.0) 07/29/19 12:09 Ur Specific [place] 1.011 (1.003-1.030) 07/29/19 12:09 Urine Protein <15 mg/dl mg/dL (Negative) 07/29/19 12:09 Urine Glucose (UA) Neg mg/dL (Negative) 07/29/19 12:09 Urine Ketones Neg mg/dL (Negative) 07/29/19 12:09 Urine Blood Neg (Negative) 07/29/19 12:09 Urine Nitrite Neg (Negative) 07/29/19 12:09 Urine Bilirubin Neg (Negative) 07/29/19 12:09 Urine Urobilinogen 4.0 mg/dL (<2.0) 07/29/19 12:09 Ur Leukocyte Esterase Neg (Negative) 07/29/19 12:09 Urine WBC (Auto) 1.0 /HPF (0.0-6.0) 07/29/19 12:09 Urine RBC (Auto) 2.0 /HPF (0.0-6.0) 07/29/19 12:09 U Epithel Cells (Auto) < 1.0 /HPF (0-13.0) 07/29/19 12:09 Urine Mucus Few /HPF 07/29/19 12:09 Vital Signs 07/29/19 07/29/19 07/29/19 09:58 11:01 13:01 Temperature 99.2 F Pulse Rate 102 H 89 84 Respiratory 20 16 16 Rate Blood Pressure 126/84 131/62 119/69 [Right] O2 Sat by Pulse 97 95 96 Oximetry - Radiology Data Radiology results: report reviewed, image reviewed COMPARISON: Chest x-ray on 04/20/2019 FINDINGS: SUPPORT DEVICES: None. HEART / MEDIASTINUM: No significant abnormality. LUNGS / PLEURA: No significant pulmonary or pleural abnormality. No pneumothorax. ADDITIONAL FINDINGS: No significant additional findings. IMPRESSION: 1. No acute findings. Signer Name: Julio Cui MD Signed: 07/29/2019 11:28 AM Workstation Name: [id number] Transcribed By: KIM Dictated By: Julio Cui MD Electronically Authenticated By: Julio Cui MD Signed Date/Time: 07/29/191127 DD/ 26 - Medical Decision Making 24-year-old female presents with acute pain secondary to sickle cell crisis. Labs within normal limits, leukocytosis due to recent UTI diagnoses that she got from the hospital the day before and acute sickle cell crisis Patient's urinalysis was within normal limits patient states she got some antibiotics yesterday. X-ray, patient received Toradol, Benadryl and Decadron in the ED Patient's pain was reduced while in the ED. Patient was resting comfortably in the ED room The patient to follow-up with her broiler chef or cook. Patient states that she has hydroxyurea at home which she takes regularly. I discussed the patient to make sure she takes her hydroxyurea every day as prescribed. Critical care attestation.: If time is entered above; I have spent that time in minutes in the direct care of this critically ill patient, excluding procedure time. ED Disposition Clinical Impression: Acute chest syndrome, Sickle cell anemia Disposition: - TO HOME OR SELFCARE Is pt being admited?: No Does the pt Need Aspirin: No Condition: Stable Instructions: Sickle Cell Crisis (ED), Acute Low Back Pain (ED) Additional Instructions: Their primary care physician. Take medication as prescribed. If you have any worsening symptoms please return to ED Prescriptions: Ciprofloxacin HCl [Ciprofloxacin TAB] 500 mg PO Q12HR #14 tab Oxycodone HCl/Acetaminophen [Percocet 7.5/325 mg] 1 each PO Q6HR PRN #14 tablet PRN Reason: Pain methOCARBAMOL [Robaxin TAB] 500 mg PO BID #20 tab Referrals: DAVE PEREA MD [Primary Care Provider] - 3-5 Days [facility] [Outside] - 3-5 Days [facility] [Outside] - 3-5 Days Forms: Accompanied Note, Work/School Release Form(ED) Time of Disposition: 14:14
[2019-07-29 11:31] LABS: Hematocrit 26.6 % (30.3-42.9); Hemoglobin 9.5 gm/dl (10.1-14.3); Mean Corpuscular HGB Conc 36 % (30-34); Mean Corpuscular Volume 95 fl (79-97); Platelet Count 568 K/mm3 (140-440); Red Cell Distribution Width 18.9 % (13.2-15.2)
--- NOTE | 2019-07-29 11:32 | XRay Report ---
Chest 1 view INDICATION / CLINICAL INFORMATION: Chest pain. COMPARISON: Chest x-ray on 04/20/2019 FINDINGS: SUPPORT DEVICES: None. HEART / MEDIASTINUM: No significant abnormality. LUNGS / PLEURA: No significant pulmonary or pleural abnormality. No pneumothorax. ADDITIONAL FINDINGS: No significant additional findings. IMPRESSION: 1. No acute findings. Signer Name: Julio Cui MD Signed: 07/29/2019 11:28 AM Workstation Name: [id number]
[2019-07-29 12:01] LABS: Total Cells Counted 100
[2019-07-29 12:02] LABS: Basophils % (Manual) 0 % (0.0-1.8); Eosinophils % (Manual) 0 % (0.0-4.3); Large Platelets Few; Sickle Cells 2+; Target Cells 2+
[2019-07-29 12:03] LABS: Platelet Estimate Consistent w Auto
[2019-07-29 12:20] LABS: Bilirubin,Urine NEG (Negative); Blood,Urine NEG (Negative); Color,Urine Amber (Yellow); Mucus,Urine FEW /HPF; Protein,Urine <15 mg/dL mg/dL (Negative)
[2019-07-29] MEDS ORDERED: dexAMETHasone 20 MG/5 ML VIAL IV ONE (12:52)
[2019-07-29] MEDS ORDERED: diphenhydrAMINE 50 MG/ML VIAL IV ONE (12:53)
[2019-07-29 13:02] VITALS: BP 119/69
== END 2019-07-29 14:44 | disposition home or self-care (01) ==
LOC: ED 09:53
DX: D57.00 Hb-SS disease with crisis, unspecified (principal); M54.5 Low back pain; J45.909 Unspecified asthma, uncomplicated; F12.10 Cannabis abuse, uncomplicated; Z88.5 Allergy status to narcotic agent; Z79.899 Other long term (current) drug therapy; Z90.49 Acquired absence of other specified parts of digestive tract
CPT/HCPCS: 36415; 71045; 81001; 85007; 85025; 85045; 96374; 96375; 99284; J1100; J1200; J1885; J7030

== ENCOUNTER 2019-08-06 16:59 | Inpatient (IN) | payer MEDICAID ==
[2019-08-06] MEDS ORDERED: HYDROmorphone 1 MG/1 ML INJ IV PRN (18:02)
[2019-08-06] MEDS ORDERED: ALBUTEROL 2.5 MG/3 ML NEBU IH PRN (18:02)
[2019-08-06] MEDS ORDERED: HYDROcodone/ACETAMINOPHEN 7.5-325MG TAB PO PRN (18:36)
[2019-08-06] MEDS ORDERED: oxyCODONE /ACETAMINOPHEN 5-325MG TAB PO PRN (19:06)
--- NOTE | 2019-08-06 19:20 | History and Physical Report ---
History of Present Illness Date of examination: 08/06/19 Date of admission: 08/06/19 18:48 Chief complaint: Sickle pain crisis/right flank pain. History of present illness: Patient presented to the office, with CC of diffuse joint pain, was in the ER, hydrated, and sent home, without pain control.She is not able to lay on her right side. She is admitted , for sxs management/ control.She will get a kub, pain meds, hydration, and once sxs subsides, will D/c home.She is also suffering from URI sxs., and will be treated as such. Past History Past Medical History: anemia Past Surgical History: No surgical history Social history: no significant social history, single, lives with family Family history: no significant family history Medications and Allergies Allergies Allergy/AdvReac Type Severity Reaction Status Date / Time hydromorphone HCl Allergy Shortness Verified 04/20/19 17:20 [From Dilaudid] of Breath morphine Allergy Shortness Verified 04/20/19 17:20 of Breath Home Medications Medication Instructions Recorded Confirmed Last Taken Type ALBUTEROL Inhaler (OR & NICU) 2 puff IH QID PRN #1 inhalation 08/07/18 04/21/19 Unknown Rx [ProAir HFA Inhaler] traMADoL [Ultram 50 MG tab] 50 mg PO Q6HR PRN #12 tablet 02/10/19 04/21/1905/31 Rx Folic Acid [Folvite] 1 mg PO DAILY 02/11/19 04/21/19 Unknown History Ciprofloxacin HCl [Ciprofloxacin 500 mg PO Q12HR #14 tab 07/29/19 Unknown Rx TAB] Oxycodone HCl/Acetaminophen 1 each PO Q6HR PRN #14 tablet 07/29/19 Unknown Rx [Percocet 7.5/325 mg] methOCARBAMOL [Robaxin TAB] 500 mg PO BID #20 tab 07/29/19 Unknown Rx Active Meds: Active Medications Albuterol (Proventil) 2.5 mg IH Q6HRT PRN PRN Reason: Shortness Of Breath Folic Acid (Folvite) 1 mg PO QDAY YASSINE Hydroxyurea (Hydroxyurea) 500 mg PO Q12HR YASSINE Dextrose/Sodium Chloride (D5/0.45ns) 1,000 mls @ 250 mls/hr IV DIRECT YASSINE Ketorolac Tromethamine (Toradol) 30 mg IV Q6HR [facility] Stop: 08/08/19 06:59 Oxycodone/Acetaminophen (Percocet 5/325) 2 tab PO Q4H PRN PRN Reason: Pain, Moderate (4-6) Sodium Chloride (Sodium Chloride Flush Syringe 10 Ml) 10 ml IV BID YASSINE Sodium Chloride (Sodium Chloride Flush Syringe 10 Ml) 10 ml IV PRN PRN PRN Reason: LINE FLUSH Review of Systems Constitutional: fatigue, weakness, chronic pain Breasts: deferred Respiratory: cough, other (Chest congestion.) Musculoskeletal: low back pain Exam - Constitutional General appearance: Present: no acute distress, mild distress, well-nourished - EENT Eyes: Present: PERRL ENT: hearing intact, clear oral mucosa - Neck Neck: Present: supple, normal ROM - Respiratory Respiratory effort: normal Respiratory: bilateral: CTA - Cardiovascular Heart Sounds: Present: S1 & S2. Absent: rub, click - Extremities Extremities: pulses symmetrical, No edema Peripheral Pulses: within normal limits - Abdominal General gastrointestinal: Present: soft, tender, non-distended, normal bowel sounds Female genitourinary: Present: deferred - Rectal Rectal Exam: deferred - Integumentary Integumentary: Present: clear, warm, dry - Musculoskeletal Musculoskeletal: gait normal, strength equal bilaterally - Psychiatric Psychiatric: appropriate mood/affect, intact judgment & insight - Neurologic Neurologic: CNII-XII intact, moves all extremities Results - Labs Labs: dehydration, will hydrate. Assessment and Plan - Patient Problems (1) Dehydration Current Visit: Yes Status: Acute Plan to address problem: Hydration. (2) Sickle cell anemia with crisis Current Visit: Yes Status: Acute Plan to address problem: Pain control (3) Acute right flank pain Current Visit: Yes Status: Acute Plan to address problem: Pain control/KUB (4) URI (upper respiratory infection) Current Visit: Yes Status: Acute Plan to address problem: Review KUB, IV ABX, oxygen.
[2019-08-06] MEDS ORDERED: FLUTICASONE PROPIONATE NASAL SPRAY 16 GM NS PRN (19:46)
[2019-08-06] MEDS ORDERED: KETOROLAC 30 MG/1 ML INJ IV SCH (20:00)
--- NOTE | 2019-08-06 20:30 | XRay Report ---
ABDOMEN 1 VIEW(S) INDICATION / CLINICAL INFORMATION: RT. UPPER QUADRANT PAIN. COMPARISON: None available. FINDINGS: TUBES / LINES: None. BOWEL GAS PATTERN: Large volume colonic stool greatest at the right colon. Negative for bowel distent ion. ADDITIONAL FINDINGS: Previous cholecystectomy. IMPRESSION: Constipation. Signer Name: Jose Spivey MD Signed: 08/06/2019 8:26 PM Workstation Name: [id number]
[2019-08-06 21:53] LABS: Basophils # (Auto) 0.1 K/mm3 (0.0-0.1); Basophils % (Auto) 1.3 % (0.0-1.8); Eosinophils # (Auto) 0.3 K/mm3 (0.0-0.4); Eosinophils % (Auto) 2.6 % (0.0-4.3); Hematocrit 25.5 % (30.3-42.9); Hemoglobin 8.7 gm/dl (10.1-14.3); Lymphocytes # (Auto) 2.6 K/mm3 (1.2-5.4); Lymphocytes % (Auto) 24.5 % (13.4-35.0); Mean Corpuscular HGB Conc 34 % (30-34); Mean Corpuscular Volume 98 fl (79-97); Monocytes # (Auto) 1.5 K/mm3 (0.0-0.8); Monocytes % (Auto) 13.8 % (0.0-7.3); Platelet Count 882 K/mm3 (140-440); Red Cell Distribution Width 18.8 % (13.2-15.2)
[2019-08-06 22:04] LABS: Alanine Aminotransferase 17 units/L (7-56); BUN/Creatinine Ratio 17; Blood Urea Nitrogen 5 mg/dL (7-17); Calcium 9.1 mg/dL (8.4-10.2); Hemolysis Index 8
[2019-08-06] MEDS: HYDROXYUREA 500 MG CAP PO SCH (22:41)
[2019-08-06] MEDS: D5W/0.45% NACL 1,000 ML IV SCH (23:31)
[2019-08-06] MEDS: cefTRIAXone/NS 1 GM/50 ML 1 GM/50 ML BAG IV SCH (23:32)
[2019-08-07] MEDS: KETOROLAC 30 MG/1 ML INJ IV SCH ×7 (06:00→23:55)
[2019-08-07] MEDS ORDERED: FOLIC ACID 1 MG TAB PO SCH (10:00)
[2019-08-07] MEDS: HYDROXYUREA 500 MG CAP PO SCH ×2 (10:40→22:07)
[2019-08-07] MEDS: D5W/0.45% NACL 1,000 ML IV SCH ×2 (18:12→23:58)
--- NOTE | 2019-08-07 20:42 | Discharge Summary ---
Providers - Providers Date of Admission: 08/06/19 18:48 Date of discharge: 08/08/19 Attending physician: OZ VALENZUELA [facility] Reason for admission: SCD/pain crisis/anemia. Condition: Stable Hospital course: patient presented to the office, with diffuse joint pain, and weakness. she was examined, and admitted to the hospital, for sxs control.She was treated ,with pain meds, oxygen, hydration.She is seen today/examined, pain level 5/10, labs stable, and will continue hydration, and d/c home tomorrow. Disposition: DC-01 TO HOME OR SELFCARE - Discharge Diagnoses (1) Dehydration Status: Resolved (2) Sickle cell anemia with crisis Status: Chronic (3) Acute right flank pain Status: Resolved (4) URI (upper respiratory infection) Status: Acute Core Measure Documentation - Palliative Care Palliative Care/ Comfort Measures: Not Applicable - Core Measures Any of the following diagnoses?: none Exam - Constitutional Vitals: Temp Pulse Resp BP Pulse Ox 99.7 F H 75 18 117/69 97 08/07/19 16:45 08/07/19 16:45 08/07/19 16:45 08/07/19 16:45 08/07/19 16:45 General appearance: Present: mild distress, well-nourished - EENT Eyes: Present: PERRL ENT: hearing intact, clear oral mucosa - Neck Neck: Present: supple, normal ROM - Respiratory Respiratory effort: normal Respiratory: bilateral: CTA - Cardiovascular Heart Sounds: Present: S1 & S2. Absent: rub, click - Extremities Extremities: pulses symmetrical, No edema Peripheral Pulses: within normal limits - Abdominal General gastrointestinal: Present: soft, non-tender, non-distended, normal bowel sounds Female genitourinary: Present: deferred - Rectal Rectal Exam: deferred - Integumentary Integumentary: Present: clear, warm, dry - Musculoskeletal Musculoskeletal: gait normal, strength equal bilaterally - Psychiatric Psychiatric: appropriate mood/affect, intact judgment & insight - Neurologic Neurologic: CNII-XII intact, moves all extremities Plan Activity: no restrictions Diet: regular Follow up with: DAVE PEREA MD [Primary Care Provider] - 7 Days OZ VALENZUELA DO [Staff Physician] - 7 Days
[2019-08-07] MEDS: cefTRIAXone/NS 1 GM/50 ML 1 GM/50 ML BAG IV SCH (22:06)
[2019-08-08] MEDS: KETOROLAC 30 MG/1 ML INJ IV SCH (06:18)
[2019-08-08] MEDS: D5W/0.45% NACL 1,000 ML IV SCH (06:18)
[2019-08-08 06:25] VITALS: BP 103/51
== END 2019-08-08 09:35 | disposition home or self-care (01) | DRG 812 ==
LOC: UNDOADMIN 16:59 → 3A 16:59
PROVIDERS: ADMIT Internal Medicine Hematology & Oncology; ATTEND Internal Medicine Hematology & Oncology
DX: D57.00 Hb-SS disease with crisis, unspecified (principal); J06.9 Acute upper respiratory infection, unspecified; D64.9 Anemia, unspecified; E86.0 Dehydration; Z88.5 Allergy status to narcotic agent; Z88.8 Allergy status to other drugs, medicaments and biological substances; Z79.51 Long term (current) use of inhaled steroids; Z79.899 Other long term (current) drug therapy
CPT/HCPCS: 36415; 74018; 80053; 85025; 85045; 87116; G0378; J0696; J1885

== ENCOUNTER 2019-11-05 03:14 | Emergency (ER) | payer MEDICAID ==
[2019-11-05 04:09] LABS: Hematocrit 24.9 % (30.3-42.9); Hemoglobin 9.1 gm/dl (10.1-14.3); Mean Corpuscular HGB Conc 36 % (30-34); Mean Corpuscular Volume 95 fl (79-97); Platelet Count 415 K/mm3 (140-440); Red Blood Count 2.63 M/mm3 (3.65-5.03); Red Cell Distribution Width 19.6 % (13.2-15.2)
[2019-11-05 04:24] LABS: Alanine Aminotransferase 36 units/L (7-56); Albumin 4.7 g/dL (3.9-5); BUN/Creatinine Ratio 50; Blood Urea Nitrogen 10 mg/dL (7-17); Calcium 9.7 mg/dL (8.4-10.2); Hemolysis Index 25
[2019-11-05] MEDS ORDERED: oxyCODONE /ACETAMINOPHEN 5-325MG TAB PO ONE (04:47)
[2019-11-05] MEDS ORDERED: KETOROLAC 30 MG/1 ML INJ IV ONE (04:47)
[2019-11-05] MEDS ORDERED: D5W/0.2% NACL 1,000 ML IV SCH (05:00)
[2019-11-05 05:18] LABS: Band Neutrophils # (Manual) 0.1 K/mm3; Total Cells Counted 100
[2019-11-05 05:19] LABS: Sickle Cells 1+; Target Cells Rare
[2019-11-05 05:20] LABS: Anisocytosis 1+; Platelet Estimate Consistent w Auto
[2019-11-05] MEDS ORDERED: MORPHINE 4 MG/1 ML INJ IV ONE (06:18)
--- NOTE | 2019-11-05 06:30 | Emergency Department Report ---
HPI - General Chief Complaint: Sickle Cell Crisis Time Seen by Provider: 11/05/19 05:59 - HPI HPI: 24-year-old -[place] female presents to the emergency department with complaint of generalized body aches and pains that she feels is consistent with a sickle cell pain crisis. She woke up this morning with pain to the joints, chest, back. She denies any fever, shortness of breath, rash, swelling of the joints. She took a Percocet for symptoms without much relief. Her primary care physician is Dr. Valenzuela. No recent travel or sick contacts at home. ED Past Medical Hx - Past Medical History Previous Medical History?: Yes Hx Congestive Heart Failure: No Hx Diabetes: No Hx Sickle Cell Disease: Yes Hx Asthma: Yes Hx COPD: No Additional medical history: Blood transfusions - Surgical History Past Surgical History?: Yes Hx Cholecystectomy: Yes Additional Surgical History: Adenoidectomy - Social History Smoking Status: Former Smoker Substance Use Type: None - Medications Home Medications: Home Medications Medication Instructions Recorded Confirmed Last Taken Type Albuterol INH(or & Nicu Only) 2 puff IH QID PRN #1 inhalation 08/07/18 08/06/19 Unknown Rx [ProAir HFA Inhaler] Folic Acid [Folvite] 1 mg PO DAILY 02/11/19 08/06/19 Unknown History Ciprofloxacin HCl [Ciprofloxacin 500 mg PO Q12HR #14 tab 07/29/19 08/06/19 Unknown Rx TAB] Hydroxyurea [Hydrea] 500 mg PO BID 08/06/19 08/06/19 Unknown History Oxycodone HCl/Acetaminophen 7.5 - 325 each PO Q6HR PRN 08/06/19 08/06/19 Unknown History [Percocet 7.5/325 mg] traMADoL [Ultram 50 MG tab] 50 mg PO Q6HR PRN 08/06/19 08/06/19 Unknown History ED Review of Systems ROS: Stated complaint: SICKLE CELL Other details as noted in HPI Comment: All other systems reviewed and negative Constitutional: denies: chills, fever Eyes: denies: eye pain, vision change ENT: denies: ear pain, throat pain Respiratory: denies: cough, shortness of breath Cardiovascular: chest pain. denies: palpitations Gastrointestinal: denies: abdominal pain, vomiting Genitourinary: denies: dysuria, discharge Musculoskeletal: back pain, arthralgia, myalgia. denies: joint swelling Skin: denies: rash, lesions Neurological: denies: weakness, numbness, paresthesias Physical Exam - Physical Exam Vital Signs: Vital Signs 11/05/19 11/05/19 11/05/19 03:20 06:03 06:04 Temperature 99.1 F 97.9 F Pulse Rate 81 76 Respiratory 18 18 16 Rate Blood Pressure 125/73 Blood Pressure 110/49 [Right] O2 Sat by Pulse 100 98 98 Oximetry Physical Exam: GENERAL: The patient is well-developed well-nourished. HENT: Normocephalic. Atraumatic. Patient has moist mucous membranes. EYES: Extraocular motions are intact. NECK: Supple. Trachea is midline. CHEST/LUNGS: Clear to auscultation. There is no respiratory distress noted. HEART/CARDIOVASCULAR: Regular. There is no tachycardia. ABDOMEN: Abdomen is soft, nontender. Patient has normal bowel sounds. There is no abdominal distention. SKIN: Skin is warm and dry. NEURO: The patient is awake, alert, and oriented. The patient is cooperative. The patient has no focal neurologic deficits. Normal speech. MUSCULOSKELETAL: There is no tenderness or deformity. There is no limitation range of motion. There is no evidence of acute injury. BACK: No midline thoracic or lumbar tenderness to palpation, step-off or deformity. There is some reproducible lower thoracic and lumbar bilateral paraspinal tenderness. ED Course Vital Signs 11/05/19 11/05/19 11/05/19 03:20 06:03 06:04 Temperature 99.1 F 97.9 F Pulse Rate 81 76 Respiratory 18 18 16 Rate Blood Pressure 125/73 Blood Pressure 110/49 [Right] O2 Sat by Pulse 100 98 98 Oximetry - Reevaluation(s) Reevaluation #1: 11/05/19 06:29 The patient took a Percocet prior to arrival and had a Percocet here at about 4:30 AM and still complains of discomfort. She says that she does not believe that she actually has an allergy to either the morphine or hydromorphone listed. Patient says that she would like to try a small dose of 1 of these medications both for pain control and to test her allergy. She denies ever having any angioedema or anaphylactic reaction. Patient will be given a very small dose of the morphine and remains on cardiac monitoring with continuous pulse oximetry. ED Medical Decision Making - Lab Data Result diagrams: 11/05/19 03:33 11/05/19 03:33 - EKG Data -: EKG Interpreted by Me EKG shows normal: sinus rhythm, axis, intervals, QRS complexes, ST-T waves Rate: normal - EKG Data When compared to previous EKG there are: previous EKG unavailable Interpretation: normal EKG - Radiology Data Radiology results: image reviewed interpreted by me: Chest x-ray does not show any acute process. There are no pleural effusions, obvious pneumonia and there is no pneumothorax. - Medical Decision Making This patient presents to the emergency department with some generalized body aches that she feels is consistent with her sickle cell pain crisis. Vital signs stable throughout her ED course including being afebrile. Patient was given a Percocet earlier in the ED course by my colleague prior to my shift starting. She has a mild leukocytosis of 13.5, a hemoglobin of 9.1 and a reticulocyte count of 12. These numbers are consistent with patient's previous visits. A chest x-ray was done that does not show any pneumonia, pleural effusions, or any other acute process. The patient does not appear to be having a chest crisis. The patient had had a Percocet prior to arrival, and a Percocet upon arrival, and still complained of moderate discomfort. She claimed that she did not actually have any allergy to the morphine or Dilaudid. Patient was given a very small dose of morphine while on the classroom monitor and pulse oximetry. She was reevaluated for a further 1 to 1.5 hours after administration of this medication and the patient had no allergic reaction or adverse side effects. This also decreased her pain greatly. She appears safe for discharge home at this time with her significant other driving home. She has good follow- up with Dr. Valenzuela outpatient. She will return to the ER with any worsening of her symptoms or any acute distress. - Differential Diagnosis Sickle cell pain crisis, chest crisis, fibromyalgia Critical Care Time: No Critical care attestation.: If time is entered above; I have spent that time in minutes in the direct care of this critically ill patient, excluding procedure time. ED Disposition Clinical Impression: Sickle cell pain crisis Sickle cell anemia Qualifiers: Sickle-cell associated disorders: with unspecified crisis Qualified Code(s): D57.00 - Hb-SS disease with crisis, unspecified; D57.0 - Hb-SS disease with crisis Disposition: DC-01 TO HOME OR SELFCARE Is pt being admited?: No Condition: Stable Instructions: Sickle Cell Crisis (ED) Additional Instructions: Please follow-up with your primary care physician/olive packer, Dr. Valenzuela, in the next few days. Return to the emergency department with any worsening of your symptoms or with any acute distress. Referrals: OZ VALENZUELA DO [Staff Physician] - 2-3 Days Time of Disposition: 07:20
--- NOTE | 2019-11-05 06:55 | XRay Report ---
CHEST 1 VIEW INDICATION: CP. COMPARISON: 07/29/2019. FINDINGS: Support devices: None. Heart: Normal. Lungs/Pleura: No acute pulmonary or pleural findings. IMPRESSION: 1. No acute findings. Signer Name: Isak Coon MD Signed: 11/05/2019 6:51 AM Workstation Name: [id number]
[2019-11-05 08:40] VITALS: BP 105/46
== END 2019-11-05 08:40 | disposition home or self-care (01) ==
LOC: ED 03:14
DX: D57.00 Hb-SS disease with crisis, unspecified (principal); J45.909 Unspecified asthma, uncomplicated; Z98.890 Other specified postprocedural states; Z90.49 Acquired absence of other specified parts of digestive tract; Z79.899 Other long term (current) drug therapy; Z88.5 Allergy status to narcotic agent
CPT/HCPCS: 36415; 71045; 80053; 84703; 85007; 85025; 85045; 93005; 93010; 96374; 96375; 99283; J1885; J2270

== ENCOUNTER 2019-11-24 06:16 | Emergency (ER) | payer MEDICAID ==
--- NOTE | 2019-11-24 08:34 | Emergency Department Report ---
ED General Adult HPI - General Chief complaint: Sickle Cell Crisis Stated complaint: SICKLE CELL CRISIS Time Seen by Provider: 11/24/19 08:30 Source: patient Mode of arrival: Ambulatory Limitations: No Limitations - History of Present Illness Initial comments: This is a 24-year-old female with a history of sickle cell disease. She states that she does not have to take opioid medication on a daily basis. She states that she tried to see Dr. Valenzuela in his clinic yesterday but he was not him. She went to [place] and was treated for sickle cell pain crisis. She states initially that she did not take any pain medication by mouth since. Then she told me that she took Percocet at 4:45 AM. She does appear to be a bit variable in her history. She also has been here with a history of the hydromorphone and morphine allergy. She was very variable with that history as well. She was given morphine without any untoward effect. She complains of diffuse aching. She does not complain of chest pain or shortness of breath. He has had no recent fever or chills. She states "I just want to get my reticulocyte count down". Last Admission 2019: - Discharge Diagnoses (1) Dehydration Status: Resolved (2) Sickle cell anemia with crisis Status: Chronic (3) Acute right flank pain Status: Resolved (4) URI (upper respiratory infection) Status: Acute -: Gradual, days(s) Location: upper extremity, lower extremity Radiation: non-radiation Quality: aching Consistency: intermittent Improves with: none Worsens with: none Associated Symptoms: denies other symptoms Treatments Prior to Arrival: other (Above history) - Related Data Home Medications Medication Instructions Recorded Confirmed Last Taken Folic Acid [Folvite] 1 mg PO DAILY 02/11/19 08/06/19 Unknown Hydroxyurea [Hydrea] 500 mg PO BID 08/06/19 08/06/19 Unknown Oxycodone HCl/Acetaminophen 7.5 - 325 each PO Q6HR PRN 08/06/19 08/06/19 Unknown [Percocet 7.5/325 mg] traMADoL [Ultram 50 MG tab] 50 mg PO Q6HR PRN 08/06/19 08/06/19 Unknown Previous Rx's Medication Instructions Recorded Last Taken Type Albuterol INH(or & Nicu Only) 2 puff IH QID PRN #1 inhalation 08/07/18 Unknown Rx [ProAir HFA Inhaler] Ciprofloxacin HCl [Ciprofloxacin 500 mg PO Q12HR #14 tab 07/29/19 Unknown Rx TAB] Allergies Allergy/AdvReac Type Severity Reaction Status Date / Time hydromorphone HCl Allergy Unknown Shortness Verified 11/24/19 09:20 [From Dilaudid] of Breath morphine Allergy Shortness Verified 11/24/19 09:22 of Breath ED Review of Systems ROS: Stated complaint: SICKLE CELL CRISIS Other details as noted in HPI Constitutional: denies: chills, fever Eyes: denies: eye pain, eye discharge, vision change ENT: denies: ear pain, throat pain Respiratory: denies: cough, shortness of breath, wheezing Cardiovascular: denies: chest pain, palpitations Endocrine: no symptoms reported Gastrointestinal: denies: abdominal pain, nausea, diarrhea Genitourinary: denies: urgency, dysuria, discharge Musculoskeletal: as per HPI Skin: denies: rash, lesions Neurological: denies: headache, weakness, paresthesias Psychiatric: denies: anxiety, depression Hematological/Lymphatic: denies: easy bleeding, easy bruising ED Past Medical Hx - Past Medical History Previous Medical History?: Yes Hx Congestive Heart Failure: No Hx Diabetes: No Hx Sickle Cell Disease: Yes Hx Asthma: Yes Hx COPD: No Additional medical history: Blood transfusions - Surgical History Past Surgical History?: Yes Hx Cholecystectomy: Yes Additional Surgical History: Adenoidectomy - Social History Smoking Status: Former Smoker - Medications Home Medications: Home Medications Medication Instructions Recorded Confirmed Last Taken Type Albuterol INH(or & Nicu Only) 2 puff IH QID PRN #1 inhalation 08/07/18 08/06/19 Unknown Rx [ProAir HFA Inhaler] Folic Acid [Folvite] 1 mg PO DAILY 02/11/19 08/06/19 Unknown History Ciprofloxacin HCl [Ciprofloxacin 500 mg PO Q12HR #14 tab 07/29/19 08/06/19 Unknown Rx TAB] Hydroxyurea [Hydrea] 500 mg PO BID 08/06/19 08/06/19 Unknown History Oxycodone HCl/Acetaminophen 7.5 - 325 each PO Q6HR PRN 08/06/19 08/06/19 Unknown History [Percocet 7.5/325 mg] traMADoL [Ultram 50 MG tab] 50 mg PO Q6HR PRN 08/06/19 08/06/19 Unknown History ED Physical Exam - General Limitations: No Limitations General appearance: alert, in no apparent distress - Head Head exam: Present: atraumatic, normocephalic - Eye Eye exam: Present: normal appearance. Absent: scleral icterus - ENT ENT exam: Present: mucous membranes moist - Neck Neck exam: Present: normal inspection. Absent: tenderness, meningismus - Respiratory Respiratory exam: Present: normal lung sounds bilaterally. Absent: respiratory distress - Cardiovascular Cardiovascular Exam: Present: regular rate, normal rhythm. Absent: systolic murmur, diastolic murmur, rubs, gallop - GI/Abdominal GI/Abdominal exam: Present: soft, normal bowel sounds. Absent: distended, tenderness, guarding - Extremities Exam Extremities exam: Present: normal inspection, normal capillary refill. Absent: pedal edema, joint swelling, calf tenderness - Back Exam Back exam: Present: normal inspection - Neurological Exam Neurological exam: Present: alert, oriented X3, CN II-XII intact. Absent: motor sensory deficit - Psychiatric Psychiatric exam: Present: normal affect, normal mood - Skin Skin exam: Present: warm, dry, intact, normal color. Absent: rash ED Course Vital Signs 11/24/19 11/24/19 06:20 08:32 Temperature 97.5 F L 97.8 F Pulse Rate 95 H 91 H Respiratory 18 21 Rate Blood Pressure 136/86 Blood Pressure 109/55 [Right] O2 Sat by Pulse 96 97 Oximetry - Reevaluation(s) Reevaluation #1: Patient states that she feels better and that she is ready to go home. She states that her normal reticulocyte count is 8. I do not think that the elevation of her reticulocyte count would be criteria to be in the hospital. She is appropriate for follow-up with her electric brain wave equipment mechanic. 11/24/19 11:21 ED Medical Decision Making - Lab Data Result diagrams: 11/24/19 07:24 Laboratory Results - last 24 hr 11/24/19 07:24 WBC 11.5 H RBC 2.37 L Hgb 8.4 L Hct 22.3 L MCV 94 MCH 35 H MCHC 37 H RDW 20.5 H Plt Count 380 Percent Retic 10.53 H Critical care attestation.: If time is entered above; I have spent that time in minutes in the direct care of this critically ill patient, excluding procedure time. ED Disposition Clinical Impression: Sickle cell pain crisis Disposition: DC-01 TO HOME OR SELFCARE Is pt being admited?: No Does the pt Need Aspirin: No Condition: Stable Instructions: Sickle Cell Crisis (ED) Additional Instructions: Increase fluids. Rx as already given. See Dr. Valenzuela on Tuesday. Return to the emergency department any acute change or worsening symptoms. Referrals: PRIMARY CARE, [Primary Care Provider] - 3-5 Days OZ VALENZUELA DO [Staff Physician] - [facility] Time of Disposition: 11:23
[2019-11-24] MEDS ORDERED: ONDANSETRON 4 MG/2 ML INJ IV ONE (08:52)
[2019-11-24] MEDS ORDERED: HYDROmorphone 1 MG/1 ML INJ IV ONE (08:52)
[2019-11-24] MEDS ORDERED: diphenhydrAMINE 50 MG/ML VIAL IV ONE (08:52)
[2019-11-24] MEDS ORDERED: D5W/0.2% NACL 1,000 ML IV SCH (09:00)
[2019-11-24 09:21] LABS: Hematocrit 22.3 % (30.3-42.9); Hemoglobin 8.4 gm/dl (10.1-14.3); Mean Corpuscular Volume 94 fl (79-97); Platelet Count 380 K/mm3 (140-440); Red Blood Count 2.37 M/mm3 (3.65-5.03)
[2019-11-24] MEDS ORDERED: MORPHINE 2 MG/1 ML INJ IV ONE (09:24)
[2019-11-24 09:25] LABS: Red Cell Distribution Width 20.5 % (13.2-15.2)
[2019-11-24 09:26] LABS: Mean Corpuscular HGB Conc 37 % (30-34)
[2019-11-24 10:48] LABS: Band Neutrophils # (Manual) 0.1 K/mm3; Total Cells Counted 100
[2019-11-24 10:49] LABS: Giant Platelets Few; Platelet Estimate Consistent w Auto; Sickle Cells 3+; Target Cells 3+
[2019-11-24 12:43] VITALS: BP 115/58
== END 2019-11-24 12:08 | disposition home or self-care (01) ==
LOC: ED 06:16
DX: D57.00 Hb-SS disease with crisis, unspecified (principal); J45.909 Unspecified asthma, uncomplicated; Z90.49 Acquired absence of other specified parts of digestive tract; Z90.89 Acquired absence of other organs; Z87.891 Personal history of nicotine dependence; Z79.899 Other long term (current) drug therapy; Z88.8 Allergy status to other drugs, medicaments and biological substances
CPT/HCPCS: 36415; 85007; 85025; 85045; 93005; 93010; 96374; 96375; 99283; J1200; J2270; J2405

== ENCOUNTER 2020-01-25 16:00 | Emergency (ER) | payer MEDICAID ==
[2020-01-25 16:10] VITALS: BP 111/59
[2020-01-25 17:26] LABS: Basophils # (Auto) 0.2 K/mm3 (0.0-0.1); Basophils % (Auto) 1.4 % (0.0-1.8); Eosinophils % (Auto) 0.2 % (0.0-4.3); Hematocrit 29.4 % (30.3-42.9); Hemoglobin 10.1 gm/dl (10.1-14.3); Lymphocytes # (Auto) 2.6 K/mm3 (1.2-5.4); Lymphocytes % (Auto) 16.4 % (13.4-35.0); Mean Corpuscular HGB Conc 34 % (30-34); Mean Corpuscular Volume 93 fl (79-97); Monocytes # (Auto) 1.6 K/mm3 (0.0-0.8); Monocytes % (Auto) 9.9 % (0.0-7.3); Platelet Count 740 K/mm3 (140-440); Red Blood Count 3.18 M/mm3 (3.65-5.03); Red Cell Distribution Width 19.7 % (13.2-15.2)
== END 2020-01-25 21:10 ==
LOC: ED 16:00
DX: D57.00 Hb-SS disease with crisis, unspecified (principal); Z53.21 Procedure and treatment not carried out due to patient leaving prior to being seen by health care provider
CPT/HCPCS: 36415; 84703; 85025; 85045